=== PATIENT | male | born 1945 | race Caucasian/White ===

== ENCOUNTER 2021-09-15 17:20 | Inpatient (IN) | payer OTHER ==
--- OUTSIDE RECORDS SUMMARY | 2021-09-15 17:22 | XMS REPORT | Continuity of Care Document ---
:1945 Author Organization [facility] t Address [address] [place] [address] Care Team Providers Name Role Phone Tiffany Harrington Cardiology Attending Clinician Unavailable Lew Adkins Admitting Clinician Unavailable Payers Payer Name Policy Type Policy Number Effective Date Expiration Date S ource Problems This patient has no known problems. Allergies, Adverse Reactions, Alerts Allergy Allergy Status Severity Reaction(s) Onset Inactive Treating Comm ents Source Name Type Date Date Clinician No Known DA Active U [facility] Allergie 09-17 [facility] 00:00: [address] Medications This patient has no known medications. Procedures This patient has no known procedures. Encounters Start End Encounter Admission Attending Care Care Encounter Source Date/Time Date/Time Type Type Clinicians Facility Department ID 2021-10-17 2021-10-17 Outpatient TOM Harrington SURG [id number] [facility] 04:30:00 04:30:00 [facility] 16 [facility] 2021-09-12 2021-09-12 Outpatient TOM Harrington SURG [id number] [facility] 08:30:00 08:30:00 [facility] 43 [facility] Results This patient has no known results.
--- NOTE | 2021-09-15 19:27 | ER ---
Nurse's Notes [facility] Name: Geraldo El Age: 76 yrs Sex: Male : 1945 Arrival Date: 09/15/2021 Time: 17:22 Bed 7 Private MD: Diagnosis: Cellulitis of other parts of limb;Personal history of diabetic foot ulcer-infected, faile out pt treatment Presentation: 09/15 17:29 Chief complaint: Chief complaint: Sent by Dr. Rosa for chronic left foot wound. hb 17:37 Coronavirus screen: At this time, the client does not indicate any symptoms associated hb with coronavirus-19. Ebola Screen: No symptoms or risks identified at this time. Risk Assessment: Do you want to hurt yourself or someone else? Patient reports no desire to harm self or others. Onset of symptoms was September 15, 2021. 17:37 Method Of Arrival: Wheelchair hb 17:37 Acuity: EDMAR 3 hb 21:15 Initial Sepsis Screen: Does the patient meet any 2 criteria? Does the patient have a aa9 suspected source of infection?. Triage Assessment: 17:30 General: Appears in no apparent distress. Behavior is calm, cooperative. Pain: Pain hb currently is 5 out of 10 on a pain scale. Neuro: Level of Consciousness is awake, alert, obeys commands, Oriented to person, place, time, situation. Cardiovascular: Patient's skin is warm and dry. Respiratory: Respiratory effort is even, unlabored, Respiratory pattern is regular, symmetrical. Historical: - Allergies: 18:25 No Known Allergies; hb - PMHx: 18:25 hypertension; Diabetes mellitus; hb - PSHx: 18:25 Double Bypass; Artery - Left Leg; Tonsillectomy; Hemorrhoidectomy; Amputation - Left hb toes (all); - Immunization history:: Client reports receiving the 2nd dose of the Covid vaccine, Flu vaccine is not up to date. - Social history:: Smoking status: Patient denies any tobacco usage or history of. - Family history:: not pertinent. Screenin:14 Abuse screen: Denies threats or abuse. Denies injuries from another. Nutritional aa9 screening: No deficits noted. Tuberculosis screening: No symptoms or risk factors identified. Fall Risk None identified. Vital Signs: 17:37 BP 168 / 78; Pulse 66; Resp 16; Temp 97.5; Pulse Ox 100% on R/A; Pain 5/10; hb 21:24 Weight 117.93 kg (R); Height 6 ft. 5 in. (195.58 cm) (R); aa9 21:24 Body Mass Index 30.83 (117.93 kg, 195.58 cm) aa9 Basom Coma Score: 19:12 Eye Response: spontaneous(4). Verbal Response: oriented(5). Motor Response: obeys ernie commands(6). Total: 15. ED Course: 17:22 Patient arrived in ED. as 17:30 Pete Ruth MD is Attending Physician. ernie 17:38 Triage completed. hb 18:25 Arm band placed on. hb 19:13 Danielito Ambrose, KATIE is Primary Nurse. as6 19:22 Ariel Ernandez MD is Hospitalizing Provider. ernie 19:34 XRAY Chest (1 view) In Process Unspecified. EDMS 19:34 Foot Left 3 View XRAY In Process Unspecified. EDMS 19:39 Inserted saline lock: 20 gauge in right wrist, using aseptic technique. Blood collected.zm 19:39 Lactate Sent. zm 19:39 SARS RAPID Sent. zm 19:39 CRP Sent. zm 19:39 Sed Rate Sent. zm 19:39 Basic Metabolic Panel Sent. zm 19:39 LFT's Sent. zm 19:39 CBC with Diff Sent. zm 19:39 Magnesium Sent. zm 19:39 NT PRO-BNP Sent. zm 19:39 PT-INR Sent. zm 19:39 Troponin HS Sent. zm 21:15 Patient has correct armband on for positive identification. aa9 09/16 08:39 No provider procedures requiring assistance completed. Patient admitted, IV remains in vg1 place. Administered Medications: 09/15 20:00 Drug: Pepcid (famotidine) 20 mg Route: IVP; Site: right wrist; aa9 20:20 Follow up: Response: No adverse reaction aa9 20:01 Drug: Meropenem 1 grams Route: IV; Rate: per protocol; Site: right wrist; aa9 20:19 Follow up: Response: No adverse reaction; IV Status: Completed infusion; IV Intake: aa9 100ml 20:10 Drug: vancoMYCIN 1 grams Route: IVPB; Infused Over: 2 hrs; Site: right wrist; aa9 21:44 Not Given (Other Intervention Used): NS 0.9% 1000 ml IV at 125 ml/hr continuous as6 22:00 Drug: NS 0.9% 500 ml Route: IV; Rate: bolus; Site: right forearm; aa9 Medication: 09/16 08:39 VIS not applicable for this client. vg1 Intake: 09/15 20:19 IV: 100ml; Total: 100ml. aa9 Outcome: 19:25 Decision to Hospitalize by Provider. erine 09/16 08:38 Admitted to Tele accompanied by tech, via stretcher, room 220, with chart, Report vg1 called to Emily WILSON Condition: good Instructed on the need for admit. 09:29 Patient left the ED. iw Signatures: Dispatcher [employer] EDPete Hunter MD MD cha Martinez, Amelia as Williams, Irene, RN KATIE iw Aria Constantino RN RN hb Garcia, Victoria, RN RN vg1 Danielito Ambrose RN RN as6 Elizabeth Rosa Aylin, RN RN aa9 Corrections: (The following items were deleted from the chart) 09/15 17:38 17:29 Chief complaint: hb hb
--- NOTE | 2021-09-15 19:27 | EDPHYS ---
Physician Documentation [facility] Name: Geraldo El Age: 76 yrs Sex: Male : 1945 Arrival Date: 09/15/2021 Time: 17:22 Bed 7 Private MD: EVELIN Physician Pete Ruth HPI: 09/15 19:12 This 76 yrs old Male presents to ER via Wheelchair with complaints of Sent by ernie Rosa. 19:12 The patient presents with decreased range of motion, pain, swelling, tenderness. The ernie complaints affect the left lateral ankle, lateral aspect of left foot, left heel, left medial ankle and medial aspect of left foot. Context: The problem was sustained at an unknown site. Onset: The symptoms/episode began/occurred 14 day(s) ago. Modifying factors: The symptoms are alleviated by elevating leg, the symptoms are aggravated by movement, weight bearing. Associated signs and symptoms: Pertinent positives: fever, weakness. The patient presents with decreased range of motion, pain, swelling, tenderness. The complaints affect the left foot. Context: The problem was sustained at an unknown location. Modifying factors: The symptoms are alleviated by nothing, the symptoms are aggravated by nothing. Historical: - Allergies: 18:25 No Known Allergies; hb - PMHx: 18:25 hypertension; Diabetes mellitus; hb - PSHx: 18:25 Double Bypass; Artery - Left Leg; Tonsillectomy; Hemorrhoidectomy; Amputation - Left hb toes (all); - Immunization history:: Client reports receiving the 2nd dose of the Covid vaccine, Flu vaccine is not up to date. - Social history:: Smoking status: Patient denies any tobacco usage or history of. - Family history:: not pertinent. ROS: 19:12 Constitutional: Negative for fever, chills, and weight loss, Eyes: Negative for injury, ernie pain, redness, and discharge, ENT: Negative for injury, pain, and discharge, Neck: Negative for injury, pain, and swelling, Cardiovascular: Negative for chest pain, palpitations, and edema, Respiratory: Negative for shortness of breath, cough, wheezing, and pleuritic chest pain, Abdomen/GI: Negative for abdominal pain, nausea, vomiting, diarrhea, and constipation, Back: Negative for injury and pain, : Negative for injury, bleeding, discharge, and swelling, Neuro: Negative for headache, weakness, numbness, tingling, and seizure, Psych: Negative for depression, anxiety, suicide ideation, homicidal ideation, and hallucinations, Allergy/Immunology: Negative for hives, rash, and allergies, Endocrine: Negative for neck swelling, polydipsia, polyuria, polyphagia, and marked weight changes, Hematologic/Lymphatic: Negative for swollen nodes, abnormal bleeding, and unusual bruising. 19:12 MS/extremity: Positive for decreased range of motion, erythema, pain, paresthesias, swelling, tenderness, of the lateral side of left heel, left Achilles, left lateral malleolus, medial aspect of left heel and heel of left foot. Exam: 19:12 Constitutional: This is a well developed, well nourished patient who is awake, alert, ernie and in no acute distress. Head/Face: Normocephalic, atraumatic. Eyes: Pupils equal round and reactive to light, extra-ocular motions intact. Lids and lashes normal. Conjunctiva and sclera are non-icteric and not injected. Cornea within normal limits. Periorbital areas with no swelling, redness, or edema. ENT: Nares patent. No nasal discharge, no septal abnormalities noted. Tympanic membranes are normal and external auditory canals are clear. Oropharynx with no redness, swelling, or masses, exudates, or evidence of obstruction, uvula midline. Mucous membranes moist. Neck: Trachea midline, no thyromegaly or masses palpated, and no cervical lymphadenopathy. Supple, full range of motion without nuchal rigidity, or vertebral point tenderness. No Meningismus. Chest/axilla: Normal chest wall appearance and motion. Nontender with no deformity. No lesions are appreciated. Cardiovascular: Regular rate and rhythm with a normal S1 and S2. No gallops, murmurs, or rubs. Normal PMI, no JVD. No pulse deficits. Respiratory: Lungs have equal breath sounds bilaterally, clear to auscultation and percussion. No rales, rhonchi or wheezes noted. No increased work of breathing, no retractions or nasal flaring. Abdomen/GI: Soft, non-tender, with normal bowel sounds. No distension or tympany. No guarding or rebound. No evidence of tenderness throughout. Back: No spinal tenderness. No costovertebral tenderness. Full range of motion. Male : Normal genitalia with no discharge or lesions. Neuro: Awake and alert, GCS 15, oriented to person, place, time, and situation. Cranial nerves II-XII grossly intact. Motor strength 5/5 in all extremities. Sensory grossly intact. Cerebellar exam normal. Normal gait. Psych: Awake, alert, with orientation to person, place and time. Behavior, mood, and affect are within normal limits. 19:12 Musculoskeletal/extremity: ROM: intact in all extremities, full active range of motion, full passive range of motion, Circulation is intact in all extremities. numbness, DVT Exam: negative Homans' sign noted on exam, no appreciated bluish discoloration, pain, swelling, tenderness, erythema, increased warmth. 19:12 Skin: cellulitis, that is mild, that is moderate, induration, that is mild is noted. Vital Signs: 17:37 BP 168 / 78; Pulse 66; Resp 16; Temp 97.5; Pulse Ox 100% on R/A; Pain 5/10; hb 21:24 Weight 117.93 kg (R); Height 6 ft. 5 in. (195.58 cm) (R); aa9 21:24 Body Mass Index 30.83 (117.93 kg, 195.58 cm) aa9 Cassandra Coma Score: 19:12 Eye Response: spontaneous(4). Verbal Response: oriented(5). Motor Response: obeys [facility] commands(6). Total: 15. MDM: 18:22 Patient medically screened. [facility] 19:18 Differential diagnosis: contusion, tendonitis, sprain, cellulitis. Data reviewed: vital ernie signs, nurses notes, lab test result(s), EKG, radiologic studies, plain films. Data interpreted: polisher hand: rate is 66 beats/min, rhythm is regular, Pulse oximetry: on room air is 100 %. Test interpretation: by ED physician or midlevel provider: ECG, plain radiologic studies. Counseling: I had a detailed discussion with the patient and/or guardian regarding: the historical points, exam findings, and any diagnostic results supporting the discharge/admit diagnosis, lab results, radiology results, the need for further work-up and treatment in the hospital. 09/15 19:10 Order name: Basic Metabolic Panel; Complete Time: 20:31 [facility] 09/15 19:10 Order name: CBC with Diff; Complete Time: 20:31 [facility] 09/15 19:10 Order name: LFT's; Complete Time: 20:31 [facility] 09/15 19:10 Order name: Magnesium; Complete Time: 20:31 [facility] 09/15 19:10 Order name: NT PRO-BNP; Complete Time: 20:31 [facility] 09/15 19:10 Order name: PT-INR; Complete Time: 19:58 [facility] 09/15 19:10 Order name: Troponin HS; Complete Time: 20:31 [facility] 09/15 19:10 Order name: Sed Rate; Complete Time: 20:31 [facility] 09/15 19:10 Order name: CRP; Complete Time: 20:31 [facility] 09/15 19:10 Order name: SARS RAPID; Complete Time: 20: [facility] 09/15 19:10 Order name: Lactate; Complete Time: 20:31 [facility] 09/15 22:58 Order name: Glucose, Ancillary Testing; Complete Time: 04:57 EDNJ 09/15 23:13 Order name: Lactate Sepsis 2 HR Follow-up; Complete Time: 04:57 [facility] 09/16 05:57 Order name: CBC with Automated Diff [place] 09/15 19:10 Order name: XRAY Chest (1 view); Complete Time: 19:58 [facility] 09/15 19:10 Order name: EKG; Complete Time: 19:11 [facility] 09/15 19:10 Order name: Cardiac monitoring; Complete Time: 20:20 [facility] 09/15 19:10 Order name: EKG - Nurse/Tech; Complete Time: 20:20 [facility] 09/15 19:10 Order name: IV Saline Lock; Complete Time: 19:40 [facility] 09/15 19:10 Order name: Labs collected and sent; Complete Time: 19:40 [facility] 09/15 19:10 Order name: Foot Left 3 View XRAY; Complete Time: 19:58 [facility] 09/16 05:57 Order name: Basic Metabolic Panel EDNJ 09/16 05:57 Order name: Phosphorus EDNJ 09/16 05:57 Order name: Magnesium [facility] 09/16 05:57 Order name: Hemoglobin A1c [facility] 09/15 19:10 Order name: O2 Per Protocol; Complete Time: 20:20 [facility] 09/15 19:10 Order name: O2 Sat Monitoring; Complete Time: 20:20 [facility] Administered Medications: 20:00 Drug: Pepcid (famotidine) 20 mg Route: IVP; Site: right wrist; aa9 20:20 Follow up: Response: No adverse reaction aa9 20:01 Drug: Meropenem 1 grams Route: IV; Rate: per protocol; Site: right wrist; aa9 20:19 Follow up: Response: No adverse reaction; IV Status: Completed infusion; IV Intake: aa9 100ml 20:10 Drug: vancoMYCIN 1 grams Route: IVPB; Infused Over: 2 hrs; Site: right wrist; aa9 21:44 Not Given (Other Intervention Used): NS 0.9% 1000 ml IV at 125 ml/hr continuous as6 22:00 Drug: NS 0.9% 500 ml Route: IV; Rate: bolus; Site: right forearm; aa9 Disposition Summary: 09/15/21 19:25 Hospitalization Ordered Hospitalization Status: Inpatient Admission ernie Provider: Ariel Ernandez cha Condition: Fair ernie Problem: new ernie Symptoms: have improved ernie Bed/Room Type: Standard ernie Location: Telemetry/MedSurg (Inpatient)(09/16/21 07:32) bd Room Assignment: 220(09/16/21 07:32) bd Diagnosis - Cellulitis of other parts of limb ernie - Personal history of diabetic foot ulcer - infected, faile out pt treatment ernie Forms: - Medication Reconciliation Form ernie - SBAR form ernie Signatures: Dispatcher [employer] EDAnali Lucero Corey, MD MD cha Garcia, Cindy, RN RN Aria Chávez RN RN hb Brown, Sophia, PA PA sb3 Anahy Fregoso RN RN aa9 Danielito Ambrose RN as6 Corrections: (The following items were deleted from the chart) 20:55 19:25 Telemetry/MedSurg (Inpatient) [facility] cg 20:55 19:25 [facility] cg 09/16 07:09/15 20:55 [facility] ER HOLD cg bd 09/16 07:09/15 20:55 ERHOLD- cg bd
[2021-09-15] MEDS ORDERED: VANCOMYCIN 1 GM/VIAL ONE (19:44)
[2021-09-15] MEDS ORDERED: Meropenem 1000 MG/VIAL IV ONE (19:44)
[2021-09-15] MEDS ORDERED: FAMOTIDINE 20 MG/2 ML VIAL IV ONE (19:45)
[2021-09-15] MEDS ORDERED: NA CHLORIDE 0.9% 100 ML ONE (19:45)
[2021-09-15] MEDS ORDERED: NA CHLORIDE 0.9% 250 ML ONE (19:45)
[2021-09-15] MEDS ORDERED: NA CHLORIDE 0.9% 500 ML ONE (19:45)
[2021-09-15] MEDS ORDERED: NA CHLORIDE 0.9% 0 ML ONE (19:45)
--- NOTE | 2021-09-15 19:50 | RAD REPORT ---
EXAM DESCRIPTION: RAD - Chest Single View - 09/15/2021 7:32 pm CLINICAL HISTORY: COUGH COMPARISON: None TECHNIQUE: AP portable chest image was obtained 09/15/2021 7:32 pm . FINDINGS: No focal mass or consolidation. Interstitial markings are prominent accentuated in part du e to portable technique and body habitus affects. No significant failure or volume overload. Pericard ial fat noted on the left. Heart and vasculature are normal. No measurable pleural effusion and no pn eumothorax. No acute bony abnormality seen. No acute aortic findings suspected. IMPRESSION: No acute cardiopulmonary process.
[2021-09-15 19:51] LABS: Protime INR 1.57
--- NOTE | 2021-09-15 19:54 | RAD REPORT ---
EXAM DESCRIPTION: RAD - Foot Left 3 View - 09/15/2021 7:32 pm CLINICAL HISTORY: PAIN, wound COMPARISON: None FINDINGS: Patient is status post amputation mid metatarsal level. At the metatarsal osteotomy sites no erosive or destructive bone changes identifiable. No tarsal bone acute finding seen. There are deg enerative changes present. Site of wound is not specified that appears to be the plantar soft tissues near the calcaneus. There are erosive changes in the calcaneus at the expected site of the plantar t endon attachment. Achilles spur is present. Air densities are seen in the mid plantar soft tissues. N o foreign body seen. IMPRESSION: Bone erosive changes are seen in the calcaneus near the plantar tendon attachment site. This is in proximity to the wound and osteomyelitis is suspected. Mid metatarsal shaft osteotomy sites show no erosive or destructive change.
[2021-09-15 19:55] LABS: Absolute Lymphocytes (CBC) 1.3 K/uL (0.7-4.9); Hematocrit 32.4 % (39.6-49.0); Lymphocytes % 7.1 % (15.3-44.8); MCV 82.5 fL (80-100); MPV 8.5 fL (7.6-11.3); RBC Red Blood Cell Count 3.93 M/uL (4.33-5.43)
--- NOTE | 2021-09-15 20:07 | P.HP ---
Certification for Inpatient Patient admitted to: Inpatient With expected LOS: <2 Midnights Patient will require the following post-hospital care: None Practitioner: I am a practitioner with admitting privileges, knowledge of patient current condition, hospital course, and medical plan of care. Services: Services provided to patient in accordance with Admission requirements found in Title 42 Section 412.3 of the Code of Federal Regulations Patient History Date of Service: 09/15/21 Primary Care Provider: Jen Reason for admission: Cellulitus/Osteomyelitis L Foot History of Present Illness: Patient is a 76-year-old male with hypertension, CAD, and NIDDM who presented to the ED with complaints of cellutis L heel/diabetic foot ulcer. Patient reports that he was admitted to [facility] about 1 week ago and treated for 2 days with IV antibiotics. He was discharged with oral doxycycline. He followed up today with Dr. Rosa who saw his foot and immediately sent him to the ED. Labs significant for WBC 18.9, ESR 80, BUN 32, creatinine 1.58, glucose 155, lactic acid 2.1, magnesium 2.5, CRP 167, BNP 4000. Vital signs stable. Chest x-ray negative. L foot xray showed "Bone erosive changes are seen in the calcaneus near the plantar tendon attachment site. This is in proximity to the wound and osteomyelitis is suspected. Mid metatarsal shaft osteotomy sites show no erosive or destructive change" Started on vanc and meropenem in ED. Dr. Rosa wishes to operate in the morning. Patient is admitted to hospitalist service. 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 - Social History Smoking Status: Former smoker Alcohol use: No CD- Drugs: No Caffeine use: Yes Place of Residence: Home Review of Systems 10-point ROS is otherwise unremarkable Physical Examination - Physical Exam General: Alert, In no apparent distress, Obese HEENT: Atraumatic, PERRLA, EOMI, Sclerae nonicteric Neck: Supple, 2+ carotid pulse no bruit, No LAD, Without JVD or thyroid abnormality Respiratory: Clear to auscultation bilaterally, Normal air movement Cardiovascular: Regular rate/rhythm, Normal S1 S2 Gastrointestinal: Normal bowel sounds, No tenderness Musculoskeletal: No contractures Integumentary: Skin breakdown, Erythema, Warmth, Diabetic ulcer, Other (dressing in place) Neurological: Normal speech, Normal strength at 5/5 x4 extr, Normal tone, Sensation intact Lymphatics: No axilla or inguinal lymphadenopathy - Studies Laboratory Data (last 24 hrs) 09/15/21 19:30: PT 17.4 H, INR 1.57 09/15/21 19:30: WBC 18.9 H, Hgb 10.5 L, Hct 32.4 L, Plt Count 388 Assessment and Plan - Problems (Diagnosis) (1) Cellulitis of left foot Current Visit: Yes Status: Acute (2) Acute osteomyelitis of left calcaneus Current Visit: Yes Status: Acute (3) Type 2 diabetes mellitus Current Visit: Yes Status: Chronic Qualifiers: Diabetes mellitus termite renewal inspector insulin use: without shelter use Diabetes mellitus complication status: with skin complications Diabetes mellitus complication detail: with foot ulcer Qualified Code(s): E11.621 - Type 2 diabetes mellitus with foot ulcer; L97.509 - Non-pressure chronic ulcer of other part of unspecified foot with unspecified severity (4) Hypertension Current Visit: Yes Status: Chronic Qualifiers: Hypertension type: primary hypertension Qualified Code(s): I10 - Essential (primary) hypertension (5) CAD (coronary artery disease) Current Visit: Yes Status: Chronic Qualifiers: Coronary Disease-Associated Artery/Lesion type: bypass graft [place] vs. transplanted heart: [place] heart Associated angina: without angina Qualified Code(s): I25.810 - Atherosclerosis of coronary artery bypass graft(s) without angina pectoris (6) BARBARA (acute kidney injury) Current Visit: Yes Status: Acute - Plan -Patient is admitted to medical floor -NPO at midnight. Dr. Rosa to operate tomorrow -Monitor on telemetry -Q6H accu checks with mild sliding scale insulin. A1c in morning -Continue vancomycin and meropenem -Wound cultures obtained -Continue IV fluids for BARBARA -Repeat labs in AM -Monitor and replete electrolytes per protocol -Reconcile and continue home medications -SCDs for VTE ppx -Full code Discharge Plan: Home Plan to discharge in: 48 Hours - Advance Directives Does patient have a Living Will: No Does patient have a Durable POA for Healthcare: No - Code Status/Comfort Care Code Status Assessed: Yes (Full) Critical Care: No Time Spent Managing Pts Care (In Minutes): 50
[2021-09-15 20:08] LABS: Albumin 2.6 g/dL (3.4-5.0); Bilirubin Direct 0.2 mg/dL (0-0.2); Bilirubin Total 0.5 mg/dL (0.2-1.0); Magnesium 2.5 mg/dL (1.8-2.4); Potassium 4.3 mmol/L (3.5-5.1); Protein, Total 7.5 g/dL (6.4-8.2); Troponin High Sensitivity 23.6 pg/mL (<58.9)
[2021-09-15 20:16] LABS: SARS-CoV-2 Antigen Rapid Res Negative (Negative)
[2021-09-15] MEDS ORDERED: ACETAMINOPHEN 500 MG TAB PO PRN (21:29)
[2021-09-15] MEDS ORDERED: VANCOMYCIN 1 GM in NA CHLORIDE 0.9% 250 ML IVPB SCH (21:29)
[2021-09-15] MEDS ORDERED: ONDANSETRON 4 MG/2 ML VIAL IV PRN (21:29)
[2021-09-15] MEDS: Ringers Lactate 1,000 ML IV SCH (21:29)
[2021-09-15 21:51] VITALS: BMI 30.8
[2021-09-15] MEDS ORDERED: Ringers Lactate 1,000 ML IV ONE (22:30)
[2021-09-15] MEDS ORDERED: VANCOMYCIN 1 GM in NA CHLORIDE 0.9% 250 ML IVPB ONE (23:00)
[2021-09-16 02:52] LABS: Absolute Lymphocytes (CBC) 1.5 K/uL (0.7-4.9); Hematocrit 29.2 % (39.6-49.0); MCV 83.9 fL (80-100); MPV 8.4 fL (7.6-11.3); RBC Red Blood Cell Count 3.48 M/uL (4.33-5.43)
[2021-09-16] MEDS: Meropenem 500 MG in NA CHLORIDE 0.9% 100 ML IV SCH ×3 (04:00→20:34)
[2021-09-16] MEDS ORDERED: Meropenem 500 MG VIAL IV ONE ×2 (04:30→11:44)
[2021-09-16] MEDS ORDERED: NA CHLORIDE 0.9% 100 ML ONE ×2 (04:31→11:43)
[2021-09-16 04:45] LABS: Magnesium 2.2 mg/dL (1.8-2.4); Phosphorus 2.7 mg/dL (2.5-4.9); Potassium 4.1 mmol/L (3.5-5.1)
[2021-09-16] MEDS: INSULIN -REGULAR HUMAN 50 UNIT/0.5 ML ML SQ SCH ×5 (06:00→20:23)
--- NOTE | 2021-09-16 06:39 | EKG ---
Test Date: 2021-09-15 Test Time: 20:01:52 Software Engineer Kernel: [email or web address] MEASUREMENT RESULTS: Intervals: Rate: 58 AR: QRSD: 146 QT: 484 QTc: 475 Ferney: P: AR: QRS: -9 T: 15 INTERPRETIVE STATEMENTS: Atrial fibrillation with slow ventricular response Right bundle branch block Inferior infarct, age undetermined Abnormal ECG No previous ECG available for comparison Electronically Signed On 09-16-21 06:38:34 CDT by Bob Hoover
[2021-09-16] MEDS: Ringers Lactate 1,000 ML IV SCH (07:29)
[2021-09-16] MEDS ORDERED: PNEUMOCOCCAL VACCINE 0.5 ML IMVAC ONE (08:00)
[2021-09-16] MEDS: VANCOMYCIN 1.5 GM in NA CHLORIDE 0.9% 500 ML IVPB SCH (11:43)
--- NOTE | 2021-09-16 12:30 | P.CNS ---
Date of Consult: 09/16/21 Primary Care Provider: Jen Chief Complaint: Cellulitus/Osteomyelitis L Foot History of Present Illness: The patient is a 76-year-old male with past medical history of diabetes, CAD, hypertension, and history of bilateral diabetic foot ulcers who presented to the emergency department secondary to cellulitis of left leg/left calcaneus diabetic foot ulcer. Patient states that he has had wounds to his bilateral lower extremities for the past 3 years and follows a wound care doctor in [facility] once a week. Patient states that he was having resolution of majority of his wounds, however approximately 1 week and ago noticed worsening of his left heel wound. X-ray taken on admission showed signs concerning for left calcaneus osteomyelitis. Patient was empirically placed on vancomycin and meropenem. Dr. Rosa on case, plans to take patient to the OR on Tuesday for amputation. Patient currently denies nausea/vomiting/diarrhea/shortness of breath/chest pain. Reports pain to left lower extremity, 1 without movement, for with movement. 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 - Social History Alcohol use: No CD- Drugs: No Caffeine use: Yes Place of Residence: Home Review of Systems 10-point ROS is otherwise unremarkable Physical Examination Temp Pulse Resp BP Pulse Ox 98.1 F 52 20 149/58 H 98 09/16/21 04:00 09/16/21 04:00 09/16/21 04:00 09/16/21 04:00 09/16/21 04:00 General: Alert, In no apparent distress, Obese HEENT: Atraumatic Neck: Supple Respiratory: Clear to auscultation bilaterally, Normal air movement Gastrointestinal: Normal bowel sounds, Soft and benign Musculoskeletal: Other (Left transmetatarsal amputation) Integumentary: Other (Right plantar diabetic foot callus, healing. Left calcaneus wound, wrapped with Kerlix. Left lower extremity cellulitis) Laboratory Data (last 24 hrs) 09/15/21 19:30: PT 17.4 H, INR 1.57 09/15/21 19:30: WBC 18.9 H, Hgb 10.5 L, Hct 32.4 L, Plt Count 388 09/15/21 19:30: Sodium 136, Potassium 4.3, BUN 32 H, Creatinine 1.58 H, Glucose 155 H, Magnesium 2.5 H, Total Bilirubin 0.5, AST 46 H, ALT 54, Alkaline Phosphatase 98 Conclusions/Impression: Antibiotics: Vancomycin: 09/15current Meropenem: 09/16current Assessment/plan Left heel diabetic ulcer with osteomyelitis X-ray showed signs concerning for left calcaneus osteomyelitis Dr. Rosa on case, please take patient to the OR on Tuesday for amputation Recommend continuing empiric IV vancomycin and meropenem at this time Recommend to keep leg elevated Diabetes Relatively controlled, hemoglobin A1c 7.0%. Educated patient importance of proper sugar control for infection control/wound healing Protein caloric malnutrition: Moderate Recommend supplemental Glucerna protein drinks. Adequate nutrition needed for proper wound healing Leukocytosis Related to left lower extremity cellulitis/left calcaneus osteomyelitis Continue current antibiotics Patient afebrile/hemodynamically stable Anemia Continue to monitor H&H Plan of care discussed with Dr. Dudley Thank you for consultation
[2021-09-16] MEDS ORDERED: VANCOMYCIN 2 GM in NA CHLORIDE 0.9% 500 ML IVPB SCH (16:00)
--- NOTE | 2021-09-16 17:45 | P.PN ---
Subjective Date of Service: 09/16/21 Primary Care Provider: Jen Chief Complaint: Cellulitus/Osteomyelitis L Foot Subjective: No new changes, Improving Physical Examination - Vital Signs Temperature: 97.8 F Blood Pressure: 171/68 Pulse: 51 Respirations: 18 Pulse Ox (%): 97 - Physical Exam General: Alert, Oriented x3 HEENT: Atraumatic, Normocephalic Neck: Supple Respiratory: Normal air movement Cardiovascular: Regular rate/rhythm, Normal S1 S2 Gastrointestinal: Soft and benign Musculoskeletal: Other (left foot hyperemia and dressing noted.) - Studies Laboratory Data (last 24 hrs) 09/15/21 19:30: PT 17.4 H, INR 1.57 09/15/21 19:30: WBC 18.9 H, Hgb 10.5 L, Hct 32.4 L, Plt Count 388 09/15/21 19:30: Sodium 136, Potassium 4.3, BUN 32 H, Creatinine 1.58 H, Glucose 155 H, Magnesium 2.5 H, Total Bilirubin 0.5, AST 46 H, ALT 54, Alkaline Phosphatase 98 Assessment And Plan - Plan Assessment and Plan - Problems (Diagnosis) (1) Cellulitis of left foot Current Visit: Yes Status: Acute (2) Acute osteomyelitis of left calcaneus Current Visit: Yes Status: Acute (3) Type 2 diabetes mellitus Current Visit: Yes Status: Chronic Qualifiers: Diabetes mellitus termite exterminator insulin use: without termite exterminator use Diabetes mellitus complication status: with skin complications Diabetes mellitus complication detail: with foot ulcer Qualified Code(s): E11.621 - Type 2 diabetes mellitus with foot ulcer; L97.509 - Non-pressure chronic ulcer of other part of unspecified foot with unspecified severity (4) Hypertension Current Visit: Yes Status: Chronic Qualifiers: Hypertension type: primary hypertension Qualified Code(s): I10 - Essential (primary) hypertension (5) CAD (coronary artery disease) Current Visit: Yes Status: Chronic Qualifiers: Coronary Disease-Associated Artery/Lesion type: bypass graft [place] vs. transplanted heart: [place] heart Associated angina: without angina Qualified Code(s): I25.810 - Atherosclerosis of coronary artery bypass graft(s) without angina pectoris (6) BARBARA (acute kidney injury) Current Visit: Yes Status: Acute - Plan he has had wound evaluated by ID and he also had surgical evaluation. Plans to have debridement as per surgeon recs. ID following for antibiotic recommendation in view of osteomyelitis episode. Will continue wound care recommendation. Will continue to monitor blood sugar before meals and at bedtime and continue insulin therapy for management of diabetes. Will continue care of comorbid conditions. Discharge Plan: Home. Plan to discharge in: once plan of care is finalized.
[2021-09-16] MEDS: AMIODARONE HCL 200 MG TAB PO SCH (20:38)
[2021-09-16] MEDS: carvediloL 25 MG TAB PO SCH (20:38)
[2021-09-16] MEDS: lisinopriL 20 MG TAB PO SCH (20:38)
[2021-09-16] MEDS: ASPIRIN EC 81 MG TAB PO SCH (20:38)
[2021-09-16] MEDS: ATORVASTATIN 80 MG TAB PO SCH (20:38)
[2021-09-16] MEDS: RIVAROXABAN 15 MG TABLET PO SCH (20:39)
[2021-09-17] MEDS: Meropenem 500 MG in NA CHLORIDE 0.9% 100 ML IV SCH ×3 (05:16→21:10)
[2021-09-17] MEDS: INSULIN -REGULAR HUMAN 50 UNIT/0.5 ML ML SQ SCH ×4 (07:30→21:09)
[2021-09-17] MEDS: lisinopriL 20 MG TAB PO SCH ×2 (08:56→20:57)
[2021-09-17] MEDS: hydroCHLOROthiazide 12.5 MG CAP PO SCH (08:57)
[2021-09-17] MEDS: ALOGLIPTIN BENZOATE 12.5 MG TABLET PO SCH (08:59)
[2021-09-17] MEDS: carvediloL 25 MG TAB PO SCH ×2 (08:59→21:09)
[2021-09-17 09:31] LABS: Specific Gravity 1.015 (1.005-1.030); Urine Bilirubin Negative (Negative); Urine Blood Negative (Negative); Urine Clarity Clear (Clear); Urine Color Yellow (Yellow); Urine Glucose 2+ (Negative); Urine Protein Negative (Negative); Urine Urobilinogen 0.2 mg/dL (0.2-1.0); Urine pH 5.5 (5.0-7.0)
[2021-09-17 11:25] LABS: Urine Bacteria <20 /HPF (<20); Urine RBC <5 /HPF (None Seen)
[2021-09-17] MEDS: VANCOMYCIN 1.5 GM in NA CHLORIDE 0.9% 500 ML IVPB SCH (11:47)
--- NOTE | 2021-09-17 12:55 | P.PN ---
Subjective Date of Service: 09/17/21 Primary Care Provider: Jen Chief Complaint: Cellulitus/Osteomyelitis L Foot Patient seen and examined at bedside, doing well with no acute complaints. Review of Systems 10-point ROS is otherwise unremarkable Physical Examination - Vital Signs Temperature: 97.4 F Blood Pressure: 172/68 Pulse: 51 Respirations: 18 Pulse Ox (%): 97 - Studies Active Medications Acetaminophen (Acetaminophen 500 Mg Tab) 500 mg PO Q4HP PRN PRN Reason: Pain scale 2-4 (Mild) Meropenem 500 mg/ Sodium (Chloride) 100 mls @ 200 mls/hr IV Q8H [facility] Last Admin: 09/17/21 11:56 Dose: 100 mls Vancomycin HCl 1.5 gm/ Sodium (Chloride) 500 mls @ 333.333 mls/hr IVPB Q24H [facility] Last Admin: 09/17/21 11:47 Dose: 500 mls Insulin Human Regular (Insulin -Regular Human 50 Unit/0.5 Ml Ml) 0 unit SQ ACHS ARELY; Protocol Last Admin: 09/17/21 11:30 Dose: Not Given Ondansetron HCl (Ondansetron 4 Mg/2 Ml Vial) 4 mg IV Q6HP PRN PRN Reason: NAUSEA / VOMITING Sodium Chloride (Flush Normal Saline 10 Ml) 10 ml IV BID [facility] Last Admin: 09/17/21 09:05 Dose: 10 ml Assessment And Plan - Plan Physical Exam: General: Alert, In no apparent distress, Obese HEENT: Atraumatic Neck: Supple Respiratory: Clear to auscultation bilaterally, Normal air movement Gastrointestinal: Normal bowel sounds, Soft and benign Musculoskeletal: Other (Left transmetatarsal amputation) Integumentary: Other (Right plantar diabetic foot callus, healing. Left calcaneus wound, wrapped with Kerlix. Left lower extremity cellulitis) Conclusions/Impression: Antibiotics: Vancomycin: 09/15current Meropenem: 09/16current Assessment/plan Left heel diabetic ulcer with osteomyelitis X-ray showed signs concerning for left calcaneus osteomyelitis Dr. Rosa on case, please take patient to the OR on Tuesday for amputation Recommend continuing empiric IV vancomycin and meropenem at this time Recommend to keep leg elevated Diabetes Relatively controlled, hemoglobin A1c 7.0%. Educated patient importance of proper sugar control for infection control/wound healing Protein caloric malnutrition: Moderate Recommend supplemental Glucerna protein drinks. Adequate nutrition needed for proper wound healing Leukocytosis Related to left lower extremity cellulitis/left calcaneus osteomyelitis Continue current antibiotics Patient afebrile/hemodynamically stable Anemia Continue to monitor H&H Plan of care discussed with Dr. Dudley Thank you for consultation
--- NOTE | 2021-09-17 13:28 | P.PN ---
Subjective Date of Service: 09/17/21 Primary Care Provider: Jen Chief Complaint: Cellulitus/Osteomyelitis L Foot No new change s/p debridement awaiting surgery tomorrow Review of Systems Unremarkable Physical Examination - Vital Signs Temperature: 97.4 F Blood Pressure: 172/68 Pulse: 51 Respirations: 18 Pulse Ox (%): 97 - Physical Exam General: Alert, In no apparent distress, Oriented x3 Respiratory: Clear to auscultation bilaterally Cardiovascular: No edema Assessment And Plan - Current Problems (Diagnosis) (1) Acute osteomyelitis of left calcaneus Current Visit: Yes Status: Acute Plan: Patient admitted with acute osteomyelitis of the left foot s/p debridement of n ecrotic tissue possible amputation tomorrow continue with meropenem and vancomycin and needs a PICC line White count is still mildly elevated no cultures blood pressure is mildly elevated
[2021-09-17] MEDS: AMLODIPINE 5 MG TAB PO SCH (17:30)
--- NOTE | 2021-09-17 17:39 | CON ---
Date of Consultation: 09/17/2021 Reason For Consultation: Preop assessment for foot surgery for infected diabetic foot ulcer. History Of Present Illness: This is a 76-year-old male with history of coronary artery disease, hist ory of peripheral vascular disease. He is status post 2-vessel bypass many years back and also had a bypass in the left lower extremity, known to have diabetes, hypertension, dyslipidemia, who presente d to the emergency room with infected diabetic foot ulcer and is on antibiotics and planning for a po ssible debridement versus amputation tomorrow. The patient denies having any active chest pain. He sees Dr. Harrington in [place] and his last stress test was more than a year ago. The patient does not do much activities due to feet problem, so exercise capacity cannot be evaluated. Past Medical History: As outlined above. Medications: Refer to reconciliation sheet for detailed list. Allergies: NO KNOWN DRUG ALLERGIES. Family History: No premature coronary artery disease or cancer. Social History: Does not smoke or drink. Does not use drugs. Review of Systems: All systems reviewed and they were negative except for what mentioned in the HPI. Physical Examination: Vital Signs: Reviewed. Head and Neck: Pupils are equal, reactive to light. Intact eye movements. No JVD. No cervical lym phadenopathy. Neck is supple. Thyroid is not enlarged. Lungs: Clear to auscultation bilaterally. No rhonchi, wheezing, or crackles. No accessory muscle u se. Heart: Regular rate and rhythm. No extra sounds. Abdomen: Soft, nontender. Bowel sounds positive. No organomegaly. No masses or hernia. No rigidi ty or rebound. Extremities: No edema, clubbing, or cyanosis. Intact pulses. Skin: No rash. Neurologic: Alert, awake, oriented x3. No acute focal deficits appreciated. Lymph Nodes: No cervical or axillary lymphadenopathy. Investigations: Troponin was negative when he came in. His creatinine is 1.44 with a white blood ce ll count of 16.4, hemoglobin 9.5. Assessment And Recommendations: 1.Cardiac preop risk assessment. This patient has coronary artery disease, peripheral vascular dise ase, diabetic hypertension. I am not able to evaluate his exercise tolerance for exercise capacity a s he does not do much activities due to his feet's status. It is planned to go under general anesthe sergio and recommend a Lexiscan nuclear stress test and an echocardiogram to be done early in the edita g prior to the surgery to better understand his cardiac risk for general anesthesia. 2.Hypertension. Blood pressure is uncontrolled. Please resume his home medications. His systolic blood pressure is close to 200. I will discuss further with primary care physician. 3.Coronary artery disease. There is no chest pain. Troponin is negative. However, unable to evalu ate his exercise capacity and plan for stress test as outlined above. SR/MODL Voice ID: [id number] Report ID: [id number]
[2021-09-17] MEDS ORDERED: NA CHLORIDE 0.9% 100 ML ONE (20:46)
[2021-09-17] MEDS: ASPIRIN EC 81 MG TAB PO SCH (20:57)
[2021-09-17] MEDS: AMIODARONE HCL 200 MG TAB PO SCH (20:57)
[2021-09-17] MEDS: ATORVASTATIN 80 MG TAB PO SCH (21:00)
[2021-09-18] MEDS: Meropenem 500 MG in NA CHLORIDE 0.9% 100 ML IV SCH ×3 (05:04→20:08)
[2021-09-18] MEDS: INSULIN -REGULAR HUMAN 50 UNIT/0.5 ML ML SQ SCH ×4 (07:30→20:09)
[2021-09-18] MEDS ORDERED: REGADENOSON 0.4 MG/5 ML SYR IV ONE (08:35)
[2021-09-18] MEDS: AMLODIPINE 5 MG TAB PO SCH (09:00)
[2021-09-18] MEDS: lisinopriL 20 MG TAB PO SCH ×2 (09:00→20:09)
[2021-09-18] MEDS: hydroCHLOROthiazide 12.5 MG CAP PO SCH (09:00)
[2021-09-18] MEDS: carvediloL 25 MG TAB PO SCH ×2 (09:00→20:08)
[2021-09-18] MEDS: ALOGLIPTIN BENZOATE 12.5 MG TABLET PO SCH (09:00)
--- NOTE | 2021-09-18 09:58 | P.PN ---
Subjective Date of Service: 09/18/21 Primary Care Provider: Jen Chief Complaint: Cellulitus/Osteomyelitis L Foot Has been scheduled for another surgery needs cardiac clearance before that his blood pressure is elevated no new complaints Review of Systems Unremarkable Physical Examination - Vital Signs Temperature: 97.4 F Blood Pressure: 162/72 Pulse: 50 Respirations: 16 Pulse Ox (%): 96 - Physical Exam General: Alert, In no apparent distress, Oriented x3 Respiratory: Clear to auscultation bilaterally Assessment And Plan - Current Problems (Diagnosis) (1) Acute osteomyelitis of left calcaneus Current Visit: Yes Status: Acute Plan: Patient is doing better pain has improved awaiting cardiac clearance for surgery continue with antibiotic blood pressure elevated n.p.o. start on hydralazine IV as needed labs ordered
[2021-09-18] MEDS: HYDRALAZINE HCL 20 MG/ML VIAL IV PRN ×3 (10:12→17:27)
[2021-09-18] MEDS: VANCOMYCIN 1.5 GM in NA CHLORIDE 0.9% 500 ML IVPB SCH ×2 (11:20→12:26)
[2021-09-18 12:02] LABS: MCV 83.2 fL (80-100); MPV 8.5 fL (7.6-11.3); RBC Red Blood Cell Count 3.72 M/uL (4.33-5.43)
[2021-09-18 12:14] LABS: Potassium 4.2 mmol/L (3.5-5.1)
--- NOTE | 2021-09-18 12:30 | RAD REPORT ---
EXAM DESCRIPTION: NM - Rest Stress Cardiac Imaging - 09/18/2021 9:13 am CLINICAL HISTORY: pre-op eval Chest pain. COMPARISON: No comparisons TECHNIQUE: The patient was administered approximately 10mCi of Tc 99m Sestamibi prior to resting SPE CT imaging of the heart. The patient was then administered approximately 30 mCi of Tc 99m Sestamibi f ollowing exercise or pharmacologic stress. Multiplanar SPECT images were reviewed. FINDINGS: No stress induced ischemic defect is seen to suggest stress induced ischemia. Fixed defect along the left ventricular apex and anterior wall on both stress and rest probably related to previo us infarction with scar tissue. The end diastolic volume is 146 ml, the end systolic volume is 63 ml, and the ejection fraction is 57 %. IMPRESSION: No stress induced ischemia.
--- NOTE | 2021-09-18 13:31 | P.PN ---
Subjective Date of Service: 09/18/21 Primary Care Provider: Jen Chief Complaint: Cellulitus/Osteomyelitis L Foot Patient seen and examined at bedside, plan for OR today. Review of Systems 10-point ROS is otherwise unremarkable Physical Examination - Vital Signs Temperature: 97.9 F Blood Pressure: 179/63 Pulse: 53 Respirations: 18 Pulse Ox (%): 97 - Studies Laboratory Last Values WBC 18.9 K/uL (4.3-10.9) H 09/15/21 19:30 RBC 3.93 M/uL (4.33-5.43) L 09/15/21 19:30 Hgb 10.5 g/dL (13.6-17.9) L 09/15/21 19:30 Hct 32.4 % (39.6-49.0) L 09/15/21 19:30 MCV 82.5 fL (80-100) 09/15/21 19:30 MCH 26.6 pg (27.0-35.0) L 09/15/21 19:30 MCHC 32.3 g/dL (32.0-36.0) 09/15/21 19:30 RDW 15.8 % (12.1-15.2) H 09/15/21 19:30 Plt Count 388 K/uL (152-406) 09/15/21 19:30 MPV 8.5 fL (7.6-11.3) 09/15/21 19:30 Neutrophils % 80.0 % (41.7-73.7) H 09/15/21 19:30 Lymphocytes % 7.1 % (15.3-44.8) L 09/15/21 19:30 Monocytes % 10.4 % (3.3-12.3) 09/15/21 19:30 Eosinophils % 2.1 % (0-4.4) 09/15/21 19: Basophils % 0.4 % (0-1.3) 09/15/21 19:30 Absolute Neutrophils 15.1 K/uL (1.8-8.0) H 09/15/21 19:30 Absolute Lymphocytes 1.3 K/uL (0.7-4.9) 09/15/21 19:30 Absolute Monocytes 2.0 K/uL (0.1-1.3) H 09/15/21 19:30 Absolute Eosinophils 0.4 K/uL (0-0.5) 09/15/21 19:30 Absolute Basophils 0.1 K/uL (0-0.5) 09/15/21 19:30 ESR Westergren 80 mm/HR (0-20) H 09/15/21 19:30 PT 17.4 SECONDS (9.5-12.5) H 09/15/21 19:30 INR 1.57 09/15/21 19:30 Sodium 136 mmol/L (136-145) 09/15/21 19: Potassium 4.3 mmol/L (3.5-5.1) 09/15/21 19: Chloride 106 mmol/L (98-107) 09/15/21: Carbon Dioxide 23 mmol/L (21-32) 09/15/21: Anion Gap 11.3 mEq/L (5.0-15.0) 09/15/21 19: BUN 32 mg/dL (7-18) H 09/15/21 19: Creatinine 1.58 mg/dL (0.55-1.3) H 09/15/21 19:30 Est GFR (CKD-EPI) 45 ml/min (=/>90) L 09/15/21: Glucose 155 mg/dL (74-106) H 09/15/21 19: Lactic Acid 2.1 mmol/L (0.4-2.0) H 09/15/21 19: Calcium 8.7 mg/dL (8.5-10.1) 09/15/21: Magnesium 2.5 mg/dL (1.8-2.4) H 09/15/21 19:30 Total Bilirubin 0.5 mg/dL (0.2-1.0) 09/15/21 19: Direct Bilirubin 0.2 mg/dL (0-0.2) 09/15/21 19:30 AST 46 U/L (15-37) H 09/15/21 19:30 ALT 54 U/L (12-78) 09/15/21 19:30 Alkaline Phosphatase 98 U/L (45-117) 09/15/21 19: Troponin I High Sens 23.6 pg/mL (<58.9) 09/15/21 19:30 C-Reactive Protein 167.00 mg/L (<3.00) H 09/15/21 19:30 NT-Pro-B Natriuret Pep 4250 pg/mL (<450) H 09/15/21 19:30 Serum Total Protein 7.5 g/dL (6.4-8.2) 09/15/21 19:30 Albumin 2.6 g/dL (3.4-5.0) L 09/15/21 19:30 Globulin 4.9 g/dL (2.3-3.5) H 09/15/21 19:30 Albumin/Globulin Ratio 0.5 (1.1-1.8) L 09/15/21 19:30 SARS-CoV-2 Ag (Rapid) Negative (Negative) 09/15/21 19:30 Assessment And Plan - Plan Physical Exam: General: Alert, In no apparent distress, Obese HEENT: Atraumatic Neck: Supple Respiratory: Clear to auscultation bilaterally, Normal air movement Gastrointestinal: Normal bowel sounds, Soft and benign Musculoskeletal: Other (Left transmetatarsal amputation) Integumentary: Other (Right plantar diabetic foot callus, healing. Left calcaneus wound, wrapped with Kerlix. Left lower extremity cellulitis) Conclusions/Impression: Antibiotics: Vancomycin: 09/15current Meropenem: 09/16current Assessment/plan Left heel diabetic ulcer with osteomyelitis X-ray showed signs concerning for left calcaneus osteomyelitis Dr. Rosa on case, please take patient to the OR on Tuesday for amputation Recommend continuing empiric IV vancomycin and meropenem at this time Recommend to keep leg elevated Diabetes Relatively controlled, hemoglobin A1c 7.0%. Educated patient importance of proper sugar control for infection control/wound healing Protein caloric malnutrition: Moderate Recommend supplemental Glucerna protein drinks. Adequate nutrition needed for proper wound healing Leukocytosis Related to left lower extremity cellulitis/left calcaneus osteomyelitis Continue current antibiotics Patient afebrile/hemodynamically stable Anemia Continue to monitor H&H Plan of care discussed with Dr. Dudley Thank you for consultation
[2021-09-18] MEDS ORDERED: NA CHLORIDE 0.9% 1,000 ML ONE (13:51)
[2021-09-18] MEDS ORDERED: LIDOCAINE 2% MPF 5 ML VIAL ONE (14:29)
[2021-09-18] MEDS ORDERED: FENTANYL CITR 100 MCG/2 ML ONE (14:29)
[2021-09-18] MEDS ORDERED: propofoL 200 MG/20 ML VIAL IV ONE (14:29)
[2021-09-18] MEDS ORDERED: MIDAZOLAM HCL 2 MG/2 ML INJ ONE (14:35)
--- NOTE | 2021-09-18 15:17 | P.BOP ---
Preoperative diagnosis: L necrotic diabetic foor ulcer with cellulitis and abscess foot and leg Postoperative diagnosis: same Primary procedure: Excisional debridement down to fascia L necrotic diabetic foor ulcer 8x8cm Estimated blood loss: <10cc Specimen: culture Findings: see dicta Anesthesia: MAC Transferred to: Recovery Room Condition: Good
--- NOTE | 2021-09-18 16:25 | RAD REPORT ---
EXAM DESCRIPTION: RAD - Chest Single View - 09/18/2021 4:20 pm CLINICAL HISTORY: picc line placement COMPARISON: Chest Single View dated 09/15/2021 FINDINGS: Portable chest was obtained following placement of a right upper extremity PICC line. The catheter tip projects over the SVC.
--- NOTE | 2021-09-18 19:53 | PN ---
Date of Progress Note: 09/18/2021 Subjective: The patient was seen by bedside, doing well. Does not have any symptoms. No chest pain , shortness of breath, orthopnea, or cough. No nausea, vomiting, or diarrhea. All other systems rev iewed are negative. Objective: Vital Signs: Reviewed. Head and Neck: Pupils are equal and reactive to light. Intact eye movements. Neck: No JVD. No cervical lymphadenopathy. Neck is supple. Thyroid is not enlarged. Lungs: Clear to auscultation bilaterally. No rhonchi, wheezing, or crackles. No accessory muscle u se. Heart: Regular rate and rhythm. No extra sounds. Abdomen: Soft and nontender. Bowel sounds positive. No organomegaly. No masses or hernia. No rig idity or rebound. Extremities: No edema, clubbing, or cyanosis. Intact pulses. Skin: No rash. Neurologic: Alert, awake, and oriented x3. No acute focal deficits appreciated. Investigations: Creatinine is 1.23 and hemoglobin is 10.1. Nuclear stress test, no ischemia. Echo showed normal EF. Assessment And Recommendation: 1.Cardiac risk assessment preoperatively. The patient has multiple risk factor, however, stress kwasi t was negative and normal ejection fraction on echo to proceed with the surgical intervention. The p atient is at low cardiac risk. 2.Coronary artery disease, stable. No acute chest pain. Continue to monitor. 3.Diabetic foot ulcer with possible peripheral for vascular disease. Recommend to obtain vascular ultrasound of lower extremity if not already done. /DINOL Voice ID: [id number] Report ID: [id number]
[2021-09-18] MEDS: ATORVASTATIN 80 MG TAB PO SCH (20:08)
[2021-09-18] MEDS: ASPIRIN EC 81 MG TAB PO SCH (20:08)
[2021-09-18] MEDS: AMIODARONE HCL 200 MG TAB PO SCH (20:08)
[2021-09-18 23:14] VITALS: O2SAT 98
--- NOTE | 2021-09-19 02:57 | OP ---
Date of Procedure: 09/18/2021 Surgeon: Bhavik Rosa MD Preoperative Diagnoses: Cellulitis of the left lower leg and foot, also necrotic diabetic ulcer with cellulitis and abscess on the foot. Postoperative Diagnoses: Cellulitis of the left lower leg and foot, also necrotic diabetic ulcer wit h cellulitis and abscess on the foot. Procedure: Excision and debridement down to fascia of left necrotic diabetic foot ulcers about 8 x 8 cm. Estimated Blood Loss: Less than 10 cc. Specimen: Culture. Findings: The patient has multiple abscess involved the plantar surface, proximal and distal, also t racked into the medial ankle region. We have made several counter incisions to be able to remove the necrotic tissue present, trying to preserve some of the skin in that area. Complications: None. Indications: This is a case of a 76-year-old patient with severe cellulitis of the leg, foot requiri ng multiple admissions first at [facility], then here, multiple debridements needed to remove the necroti c tissue of the necrotic diabetic ulcer. Today, he was fully explained the need for debridement, wit h benefits, alternatives, risks include, but not limited to infection, bleeding, damage to adjacent s tructures, anesthesia complication, nonhealing wound, DC, and even . He also understands this m ay not relieve his symptoms. He might need more than one surgical intervention. He understood, sign ed a consent. He was also advised to go back to his vascular surgeon to re-evaluate the vascular pat ency of his graft that he has in the left leg. The patient this morning was evaluated by cardiologis t, who gave us clearance for surgery. Procedure In Detail: The patient was brought to the operating room, placed in supine position. Anes thesia was done without complication. A time-out was called. Left foot was prepped and draped in st erile fashion. We have an open wound over the dorsal aspect, but when we put this instrument through and the curette, we noticed that it tracked anterior, tracked posterior, and tracked also in the med ial ankle region. This has after been almost a week of antibiotics, still have purulent discharge. So, we made an incision on the mid foot and then opened even more incision in the plantar area and th is allowed us to get access to the entire foot area. There is obviously tendon or bone exposed appear the fat in that region has gone and is only tendons showing with muscle. The area was p rofusely irrigated. Then, after that, we used pulse lavage to further clean the area and do the debr idement. This was done under local anesthetic. The patient also has MAC anesthesia. The patient to lerated the procedure well. Hemostasis obtained and the area was packed with a wet-to-dry dressing. RASHID/RAFI Voice ID: [id number] Report ID: [id number]
[2021-09-19] MEDS: Meropenem 500 MG in NA CHLORIDE 0.9% 100 ML IV SCH ×3 (04:00→22:18)
[2021-09-19] MEDS: INSULIN -REGULAR HUMAN 50 UNIT/0.5 ML ML SQ SCH ×4 (07:30→22:20)
[2021-09-19] MEDS: hydroCHLOROthiazide 12.5 MG CAP PO SCH (08:32)
[2021-09-19] MEDS: lisinopriL 20 MG TAB PO SCH ×2 (08:33→22:19)
[2021-09-19] MEDS: ALOGLIPTIN BENZOATE 12.5 MG TABLET PO SCH (08:33)
[2021-09-19] MEDS: AMLODIPINE 5 MG TAB PO SCH (08:33)
[2021-09-19] MEDS: carvediloL 25 MG TAB PO SCH ×2 (08:33→22:20)
[2021-09-19] MEDS: VANCOMYCIN 1.5 GM in NA CHLORIDE 0.9% 500 ML IVPB SCH (11:36)
--- NOTE | 2021-09-19 14:07 | P.PN ---
Subjective Date of Service: 09/19/21 Subjective: No C/O voiced, Improving, Doing well Review of Systems 10-point ROS is otherwise unremarkable Physical Examination - Vital Signs Temperature: 97.4 F Blood Pressure: 168/68 Pulse: 51 Respirations: 18 Pulse Ox (%): 98 - Physical Exam General: Alert, In no apparent distress HEENT: Atraumatic, PERRLA, EOMI Neck: Supple, JVD not distended Respiratory: Clear to auscultation bilaterally, Normal air movement Cardiovascular: Regular rate/rhythm, Normal S1 S2 Gastrointestinal: Normal bowel sounds, No tenderness Musculoskeletal: No tenderness Integumentary: No rashes Neurological: Normal speech, Normal tone, Normal affect Lymphatics: No axilla or inguinal lymphadenopathy - Studies Medications List Reviewed: Yes Assessment & Plan - Problems (Diagnosis) (1) Acute osteomyelitis of left calcaneus Current Visit: Yes Status: Acute (2) Cellulitis of left foot Current Visit: Yes Status: Acute (3) CAD (coronary artery disease) Current Visit: Yes Status: Chronic Qualifiers: Coronary Disease-Associated Artery/Lesion type: bypass graft [place] vs. transplanted heart: [place] heart Associated angina: without angina Qualified Code(s): I25.810 - Atherosclerosis of coronary artery bypass graft(s) without angina pectoris (4) Hypertension Current Visit: Yes Status: Chronic Qualifiers: Hypertension type: primary hypertension Qualified Code(s): I10 - Essential (primary) hypertension (5) Type 2 diabetes mellitus Current Visit: Yes Status: Chronic Qualifiers: Diabetes mellitus parts counterman insulin use: without parts counterman use Diabetes mellitus complication status: with skin complications Diabetes mellitus complication detail: with foot ulcer Qualified Code(s): E11.621 - Type 2 diabetes mellitus with foot ulcer; L97.509 - Non-pressure chronic ulcer of other part of unspecified foot with unspecified severity - Plan 1. Continue with IV antibiotic 2. Continue with local wound care 3. Wound care consultation/surgical consultation Appreciated 4. Hep-Lock IV 5. Monitor CBC 6. Strict blood sugar monitoring 7. Pain control 8. GI and DVT prophylaxis Discharge Plan: Home Plan to discharge in: 48 Hours - Advance Directives Does patient have a Living Will: Yes Does patient have a Durable POA for Healthcare: No - Code Status/Comfort Care Code Status Assessed: Yes Code Status: Full Code Critical Care: No Time Spent Managing PTS Care (In Minutes): 35
[2021-09-19] MEDS: HYDRALAZINE HCL 20 MG/ML VIAL IV PRN (16:11)
[2021-09-19] MEDS ORDERED: DOCUSATE NA 100 MG CAP PO PRN (22:16)
[2021-09-19] MEDS: RIVAROXABAN 15 MG TABLET PO SCH (22:18)
[2021-09-19] MEDS: ATORVASTATIN 80 MG TAB PO SCH (22:19)
[2021-09-19] MEDS: AMIODARONE HCL 200 MG TAB PO SCH (22:19)
[2021-09-19] MEDS: ASPIRIN EC 81 MG TAB PO SCH (22:19)
[2021-09-20] MEDS: Meropenem 500 MG in NA CHLORIDE 0.9% 100 ML IV SCH ×3 (03:50→20:23)
[2021-09-20 06:52] LABS: Magnesium 2.3 mg/dL (1.8-2.4); Potassium 4.3 mmol/L (3.5-5.1)
[2021-09-20 06:59] LABS: Absolute Lymphocytes (CBC) 1.6 K/uL (0.7-4.9); Hematocrit 28.4 % (39.6-49.0); Lymphocytes % 14.7 % (15.3-44.8); MCV 83.4 fL (80-100); MPV 8.6 fL (7.6-11.3); RBC Red Blood Cell Count 3.41 M/uL (4.33-5.43)
[2021-09-20] MEDS: INSULIN -REGULAR HUMAN 50 UNIT/0.5 ML ML SQ SCH ×4 (07:30→20:24)
[2021-09-20] MEDS: carvediloL 25 MG TAB PO SCH ×2 (08:26→20:26)
[2021-09-20] MEDS: lisinopriL 20 MG TAB PO SCH ×2 (08:27→20:24)
[2021-09-20] MEDS: hydroCHLOROthiazide 12.5 MG CAP PO SCH (08:27)
[2021-09-20] MEDS: AMLODIPINE 5 MG TAB PO SCH (08:27)
[2021-09-20] MEDS: ALOGLIPTIN BENZOATE 12.5 MG TABLET PO SCH (08:27)
[2021-09-20] MEDS: VANCOMYCIN 1.5 GM in NA CHLORIDE 0.9% 500 ML IVPB SCH ×2 (12:00→12:52)
[2021-09-20] MEDS ORDERED: VANCOMYCIN 1.25 GM in NA CHLORIDE 0.9% 250 ML IVPB SCH (13:00)
[2021-09-20] MEDS: HYDRALAZINE HCL 20 MG/ML VIAL IV PRN (17:49)
[2021-09-20] MEDS: RIVAROXABAN 15 MG TABLET PO SCH (20:25)
[2021-09-20] MEDS: ATORVASTATIN 80 MG TAB PO SCH (20:25)
[2021-09-20] MEDS: ASPIRIN EC 81 MG TAB PO SCH (20:25)
[2021-09-20] MEDS: AMIODARONE HCL 200 MG TAB PO SCH (20:25)
[2021-09-21] MEDS: Meropenem 500 MG in NA CHLORIDE 0.9% 100 ML IV SCH ×2 (03:58→15:16)
--- NOTE | 2021-09-21 06:59 | ECHO ---
HEIGHT: 6 ft 5 in WEIGHT: 260 lb 0 oz DATE OF STUDY: 09/18/[address]: Maurilio Donato 2-DIMENSIONAL: YES M.MODE: YES DOPPLER: YES COLOR FLOW: YES TDS: PORTABLE: YES DEFINITY: BUBBLE STUDY: DIAGNOSIS: PREOP CARDIAC HISTORY: CATHERIZATION: YES SURGERY: YES PROSTHETIC VALVE: NO PACEMAKER: NO MEASUREMENTS (cm) DIASTOLIC (NORMALS) SYSTOLIC (NORMALS) IVSd 1.2 (0.6-1.2) LA Diam 4.9 (1.9-4.0) LVEF 60% LVIDd 4.8 (3.5-5.7) LVIDs 3.3 (2.0-3.5) %FS 32% LVPWd 1.2 (0.6-1.2) Ao Diam 3.0 (2.0-3.7) 2 DIMENSIONAL ASSESSMENT: RIGHT ATRIUM: NORMAL LEFT ATRIUM: ENLARAGED RIGHT VENTRICLE: NORMAL LEFT VENTRICLE: NORMAL TRICUSPID VALVE: NORMAL MITRAL VALVE: MILD MITRAL REGURGITATION PULMONIC VALVE: NORMAL AORTIC VALVE: NORMAL PERICARDIAL EFFUSION: NONE AORTIC ROOT: NORMAL LEFT VENTRICULAR WALL MOTION: NORMAL DOPPLER/COLOR FLOW: SEE BELOW COMMENTS: NORMAL LEFT VENTRICULAR EJECTION FRACTION 55-60 %. MILD MITRAL REGURGITATION. NORMAL WALL MOTION. TECHNOLOGIST: MARY RODRIGUEZ
--- NOTE | 2021-09-21 07:14 | TREADPHA ---
DX: PREOP Date of Study: 09/18/2021 Ht: 6' 5 " Wt: 260 lb 0 oz Consulting Physician: LENNIE MEDICATIONS: CORARONE, ASPIRIN, LIPITOR, COREG, HYDROCHLOROTHIAZIDE, NOVOLIN-R, PRINIVIL HISTORY: 76 YEAR OLD MALE WITH HISTORY OF DIABETES MELLITUS, CORONARY ARTERY BYPASS GRAFT, HYPERTENSION, HYPERLIPIDEMIA. COMPLAINTS OF CHEST PAIN. PHYSICIAL EXAMINATION: RESTING B.P.: 191/57 RESTING H.R.: 50 RESTING EKG: NORMAL SINUS RHYTHM WITH FIRST DEGREE AV BLOCK, RIGHT BUNDLE BRANCH BLOCK PROTOCOL: PHARMACOLOGIC EXERCISE TIME: 3:30 B.P. AT [place] STRESS: 176/59 IMPRESSION: LEXISCAN INJECTED, CARDIOLITE GIVEN PER PROTOCOL. SEE NUCLEAR MEDICINE REPORT. PATIENT COMPLAINTS OF SHORTNESS OF BREATH. NO PREMATURE VENTRICULAR COMPLEXES, PREMATURE ATRIAL COMPLEXES, SUPRAVENTRICULAR TACHYCARDIA, OR VENTRICULAR TACHYCARDIA NOTED. NO ELECTROCARDIOGRAM CHANGES OF ISCHEMIA.
[2021-09-21] MEDS: INSULIN -REGULAR HUMAN 50 UNIT/0.5 ML ML SQ SCH ×4 (07:30→21:15)
--- NOTE | 2021-09-21 07:59 | P.PN ---
Date of Service: 09/20/21 Subjective Patient is clinically doing well. Patient denies any new complaints. Patient is feeling much better and is ready to go home. He wants to go home with home health and he continue with antibiotics at discharge. He can continue with the wound care at the house to get of fluid can make arrangements and discharge in a.m. Review of Systems 10-point ROS is otherwise unremarkable Physical Examination - Vital Signs reviewed - Physical Exam General: Alert, In no apparent distress Respiratory: Clear to auscultation bilaterally, Normal air movement Cardiovascular: Regular rate/rhythm, Normal S1 S2 Gastrointestinal: Normal bowel sounds, No tenderness Neurological: Normal speech, Normal tone, Normal affect Foot: dressing C/D/I Assessment & Plan - Problems (Diagnosis) (1) Acute osteomyelitis of left calcaneus Current Visit: Yes Status: Acute (2) Cellulitis of left foot Current Visit: Yes Status: Acute (3) CAD (coronary artery disease) Current Visit: Yes Status: Chronic Qualifiers: Coronary Disease-Associated Artery/Lesion type: bypass graft [place] vs. transplanted heart: [place] heart Associated angina: without angina Qualified Code(s): I25.810 - Atherosclerosis of coronary artery bypass graft(s) without angina pectoris (4) Hypertension Current Visit: Yes Status: Chronic Qualifiers: Hypertension type: primary hypertension Qualified Code(s): I10 - Essential (primary) hypertension (5) Type 2 diabetes mellitus Current Visit: Yes Status: Chronic Qualifiers: Diabetes mellitus assisted insulin use: without terminal press operator use Diabetes mellitus complication status: with skin complications Diabetes mellitus c omplication detail: with foot ulcer Qualified Code(s): E11.621 - Type 2 diabetes mellitus with foot ulcer; L97.509 - Non-pressure chronic ulcer of other part of unspecified foot with unspecified severity - Plan Continue with plan of care as mentioned below: 1. Continue with IV antibiotic 2. Continue with local wound care 3. Wound care consultation/surgical consultation appreciated 4. Hep-Lock IV 5. Monitor CBC 6. Strict blood sugar monitoring 7. Pain control 8. GI and DVT prophylaxis Discharge Plan: Home Plan to discharge in: 24hrs with home health - Advance Directives Does patient have a Living Will: Yes Does patient have a Durable POA for Healthcare: No - Code Status/Comfort Care Code Status Assessed: Yes Code Status: Full Code Critical Care: No Time Spent Managing PTS Care (In Minutes): 35
[2021-09-21] MEDS: lisinopriL 20 MG TAB PO SCH ×2 (08:31→21:17)
[2021-09-21] MEDS: AMLODIPINE 5 MG TAB PO SCH (08:31)
[2021-09-21] MEDS: hydroCHLOROthiazide 12.5 MG CAP PO SCH (08:32)
[2021-09-21] MEDS: ALOGLIPTIN BENZOATE 12.5 MG TABLET PO SCH (08:32)
[2021-09-21] MEDS: carvediloL 25 MG TAB PO SCH ×2 (08:32→21:17)
[2021-09-21] MEDS: VANCOMYCIN 1.5 GM in NA CHLORIDE 0.9% 500 ML IVPB SCH (13:15)
[2021-09-21] MEDS: XIGDUO PO SCH (13:30)
--- NOTE | 2021-09-21 16:51 | P.PN ---
Subjective Date of Service: 09/21/21 Primary Care Provider: Dr. Li Chief Complaint: Cellulitus/Osteomyelitis L Foot Subjective: Improving No acute events overnight. Appears to be improving from a clinical standpoint. He is eager for discharge home. Currently, we are awaiting approval from Home Health for wound care and IV antibiotics. Review of Systems 10-point ROS is otherwise unremarkable Musculoskeletal: Foot Pain (left foot osteomyelitis) Integumentary: Rash (left foot) Physical Examination - Vital Signs Temperature: 97.8 F Blood Pressure: 182/79 Pulse: 53 Respirations: 14 Pulse Ox (%): 97 - Physical Exam General: Alert, In no apparent distress, Oriented x3 HEENT: Atraumatic, Mucous membr. moist/pink, EOMI, Sclerae nonicteric Neck: Supple, JVD not distended Respiratory: Clear to auscultation bilaterally, Normal air movement Cardiovascular: No edema, Regular rate/rhythm, Normal S1 S2, No gallops, No rubs, No murmurs Gastrointestinal: Normal bowel sounds, Soft and benign, Non-distended, No tenderness, No rebound, No guarding Musculoskeletal: No clubbing, Other (left foot covered in surgical dressing, which is clean, dry, and intact) Integumentary: No rashes Neurological: Normal speech - Studies Medications List Reviewed: Yes Assessment And Plan - Plan # Acute Osteomyelitis of Left Calcaneus secondary to Methicillin-Sensitive Staphylococcus Aureus # Left Foot Cellulitis - S/P excisional debridement down to fascia L necrotic diabetic foor ulcer 8x8cm with Dr. Rosa on 09/18/2021 - Infectious Diseases consulted and spoke with Dr. Dudley - He recommended levofloxacin 500 mg daily x 35 more days - Spoke with case management, we are trying to arrange Home Health for IV antibiotics and wound care - Anticipate discharge tomorrow if everything can be coordinated # Coronary Artery Disease s/p CABG # Hypertension - Continue home medications # Type II Diabetes Mellitus complicated by Diabetic Foot Ulcers - Correction scale insulin Guevara Hollis M.D. Discharge Plan: Home Plan to discharge in: 24 Hours
[2021-09-21] MEDS ORDERED: Levofloxacin500mg IV 500 MG/100 ML BAG IV SCH (17:00)
[2021-09-21] MEDS: HYDROCODONE/APAP 5/325 MG TAB PO PRN (17:36)
[2021-09-21] MEDS: Levofloxacin 750mg IV 750 MG/150 ML BAG IV SCH (17:37)
--- NOTE | 2021-09-21 18:53 | PN ---
Subjective: The patient is sitting in bed, not in any acute distress, having lunch. Denies any head ache, nausea, vomiting, chest pain, abdominal pain, constipation, or diarrhea. Objective: Vital Signs: Temperature 97, pulse 50, respirations 16, blood pressure 170/71. Lungs: Clear to auscultation. Heart: S1, S2. Regular. Abdomen: Soft, nontender. Bowel sounds present. Extremities: Wound noted. Laboratory Data: WBC 10.8, hemoglobin 9.5, platelets 349. Chemistry shows sugar of 226. Left wound cultures growing Staph aureus. The patient is currently being treated with Vanco and Merrem. Assessment And Plan: Left heel diabetic ulcer and osteomyelitis with significant past medical histor y of diabetic neuropathy and uncontrolled diabetes mellitus and multiple wounds in the past, being fo llowed at [facility]. Continue treatment for 6 weeks total. Monitor BMP, CBC, WBC, and feve r trends. We will follow the patient closely. Total course of 6 weeks. NF/MODL Voice ID: [id number] Report ID: [id number]
[2021-09-21] MEDS: RIVAROXABAN 15 MG TABLET PO SCH (21:16)
[2021-09-21] MEDS: ATORVASTATIN 80 MG TAB PO SCH (21:16)
[2021-09-21] MEDS: AMIODARONE HCL 200 MG TAB PO SCH (21:16)
[2021-09-21] MEDS: ASPIRIN EC 81 MG TAB PO SCH (21:16)
[2021-09-22 04:09] LABS: Absolute Lymphocytes (CBC) 1.7 K/uL (0.7-4.9); Hematocrit 27.7 % (39.6-49.0); Lymphocytes % 19.2 % (15.3-44.8); MCV 82.2 fL (80-100); MPV 8.9 fL (7.6-11.3); RBC Red Blood Cell Count 3.37 M/uL (4.33-5.43)
[2021-09-22 04:32] LABS: Bilirubin Total 0.3 mg/dL (0.2-1.0); Potassium 4.4 mmol/L (3.5-5.1)
[2021-09-22] MEDS: INSULIN -REGULAR HUMAN 50 UNIT/0.5 ML ML SQ SCH ×2 (07:30→12:17)
--- NOTE | 2021-09-22 08:43 | P.DS ---
Admission Date: 09/15/21 Discharge Date: 09/22/21 Primary Care Provider: Dr. Fitzgerald Disposition: DC HOME/HOME HEALTH CARE Discharge Condition: GOOD Reason for Admission: Cellulitus/Osteomyelitis L Foot Consultations: 1. Infectious Diseases 2. General Surgery Procedures: - 09/18/2021 - Excisional Debridement down to the Fascia of the Left Necrotic Diabetic Foot Ulcer Hospital Course: DIAGNOSES: # Acute Osteomyelitis of Left Calcaneus secondary to Methicillin-Sensitive Staphylococcus Aureus # Left Foot Cellulitis # Coronary Artery Disease s/p CABG # Hypertension # Type II Diabetes Mellitus complicated by Diabetic Foot Ulcers HOSPITAL COURSE: Mr. Geraldo El is a pleasant 76-year-old male with a past medical history significant for coronary artery disease s/p CABG, type 2 diabetes melitis complicated by diabetic foot ulcers, and hypertension who was admitted to the [facility] on 09/15/2021 for left foot cellulitis. Upon further evaluation, he was found to have acute osteomyelitis of the left calcaneus which returned positive for Methicillin-Sensitive Staphyloccous Aureus . General Surgery was consulted and he underwent excisional debridement down to the fascia of the left necrotic diabetic foot ulcer with Dr. Rosa on 09/18/2021. Infectious Diseases was consulted and Dr. Dudley evaluated him. He recommended that he be discharged with 35 additional days of levofloxacin to complete a 6-week course of IV antibiotics. With the assistance of case management, home health was arranged for him to receive wound care as well as his antibiotics. On 09/22/2021, he was seen on morning rounds and deemed medically stable for discharge. He was discharged with instructions to schedule follow-up appointments with his PCP (Dr. Fitzgerald) in 3-[address] Rosa (General Surgery) in 1-2 weeks. He was given the opportunity to ask questions and reported no further questions. Furthermore, all questions were answered to the best of my ability. Today, I personally spent 20 minutes on his case, of which greater than 50% of the time was spent in patient education, counseling, and coordination of care as described above. - Physical Exam General: Alert, In no apparent distress, Oriented x3 HEENT: Atraumatic, Mucous membr. moist/pink, EOMI, Sclerae nonicteric Neck: Supple, JVD not distended Respiratory: Clear to auscultation bilaterally, Normal air movement Cardiovascular: No edema, Regular rate/rhythm, Normal S1 S2, No gallops, No rubs, No murmurs Gastrointestinal: Normal bowel sounds, Soft and benign, Non-distended, No tenderness, No rebound, No guarding Musculoskeletal: No clubbing, Other (left foot covered in surgical dressing, which is clean, dry, and intact) Integumentary: No rashes Neurological: Normal speech Vital Signs/Physical Exam: Temp Pulse Resp BP Pulse Ox 97.8 F 51 16 178/89 H 99 09/22/21 08:00 09/22/21 08:00 09/22/21 08:00 09/22/21 09:00 09/22/21 08:00 Laboratory Data at Discharge: WBC 9.1 K/uL (4.3-10.9) D 09/22/21 03:58 Hgb 9.3 g/dL (13.6-17.9) L 09/22/21 03:58 Hct 27.7 % (39.6-49.0) L 09/22/21 03:58 Plt Count 339 K/uL (152-406) 09/22/21 03:58 PT 17.4 SECONDS (9.5-12.5) H 09/15/21 19:30 INR 1.57 09/15/21 19:30 Sodium 137 mmol/L (136-145) 09/22/21 03:58 Potassium 4.4 mmol/L (3.5-5.1) 09/22/21 03:58 BUN 23 mg/dL (7-18) H 09/22/21 03:58 Creatinine 1.35 mg/dL (0.55-1.3) H 09/22/21 03:58 Glucose 126 mg/dL (74-106) H 09/22/21 03:58 Phosphorus 2.7 mg/dL (2.5-4.9) 09/16/21 02:23 Magnesium 2.3 mg/dL (1.8-2.4) 09/20/21 06:21 Total Bilirubin 0.3 mg/dL (0.2-1.0) 09/22/21 03:58 AST 57 U/L (15-37) H 09/22/21 03:58 ALT 71 U/L (12-78) 09/22/21 03:58 Alkaline Phosphatase 81 U/L (45-117) 09/22/21 03:58 Home Medications: RX: Amiodarone HCl [Pacerone] 200 mg PO BEDTIME 09/16/21 RX: Aspirin [Aspirin EC 81 MG] 81 mg PO BEDTIME 09/16/21 RX: Atorvastatin Calcium [Lipitor] 80 mg PO BEDTIME 09/16/21 RX: Carvedilol [Coreg] 25 mg PO BID 09/16/21 RX: Rivaroxaban [Xarelto*] 15 mg PO BEDTIME 09/16/21 RX: Sitagliptin Phosphate [Januvia] 100 mg PO DAILY 09/16/21 RX: hydroCHLOROthiazide [Hydrochlorothiazide] 12.5 mg PO DAILY 09/16/21 RX: lisinopriL [Lisinopril] 20 mg PO BID 09/16/21 RX: Dapagliflozin/Metformin HCl [Xigduo Xr 5 mg-1,000 mg Tablet] 2 tab PO DAILY 09/21/21 Hydrocodone 5/APAP 325 [[place] 5/325] 1 tab PO Q6HP PRN #10 tab 09/22/21 RX: Amlodipine [Norvasc*] 5 mg PO DAILY #30 tab 09/22/21 New Medications: Hydrocodone 5/APAP 325 [[place] 5/325] 1 tab PO Q6HP PRN #10 tab PRN Reason: Pain Scale 8-10 (Severe) RX: Amlodipine [Norvasc*] 5 mg PO DAILY #30 tab Physician Discharge Instructions: 1. Please schedule follow-up with your PCP (Dr. Fitzgerald) in 3-5 days. 2. Please schedule follow-up with General Surgery (Dr. Rosa) in 5-7 days. Diet: ADA Activity: Ad brain Followup: Bhavik Rosa MD [ACTIVE - CAN ADMIT] - (Call to schedule appointment) Bj Fitzgerald MD [Primary Care Provider] - (call to schedule appointment.)
[2021-09-22] MEDS: hydroCHLOROthiazide 12.5 MG CAP PO SCH (09:00)
[2021-09-22] MEDS: lisinopriL 20 MG TAB PO SCH (09:00)
[2021-09-22] MEDS: AMLODIPINE 5 MG TAB PO SCH (09:01)
[2021-09-22] MEDS: XIGDUO PO SCH (09:01)
[2021-09-22] MEDS: carvediloL 25 MG TAB PO SCH (09:01)
[2021-09-22] MEDS: ALOGLIPTIN BENZOATE 12.5 MG TABLET PO SCH (09:02)
[2021-09-22 12:05] VITALS: BP 193/81; TEMP 98
[2021-09-22] MEDS: Levofloxacin 750mg IV 750 MG/150 ML BAG IV SCH (12:16)
[2021-09-22] MEDS: HYDROCODONE/APAP 5/325 MG TAB PO PRN (12:57)
== END 2021-09-22 14:53 | disposition home health service (06) | DRG 623 ==
LOC: ER 17:20 → ERHOLD 20:01 → 2ND 09-16 08:53
PROVIDERS: ADMIT Internal Medicine Nephrology; ATTEND Internal Medicine Nephrology
PROC: 02HV33Z Insertion of Infusion Device into Superior Vena Cava, Percutaneous Approach (ICD-10-PCS; 2021-09-18)
PROC: 3E04329 Introduction of Other Anti-infective into Central Vein, Percutaneous Approach (ICD-10-PCS; 2021-09-18)
PROC: 0JBR0ZZ Excision of Left Foot Subcutaneous Tissue and Fascia, Open Approach (ICD-10-PCS; principal; 2021-09-18 15:00)
DX: E11.69 Type 2 diabetes mellitus with other specified complication (principal); E11.52 Type 2 diabetes mellitus with diabetic peripheral angiopathy with gangrene; M86.172 Other acute osteomyelitis, left ankle and foot; I96 Gangrene, not elsewhere classified; L03.116 Cellulitis of left lower limb; E44.0 Moderate protein-calorie malnutrition; N17.9 Acute kidney failure, unspecified; B95.62 Methicillin resistant Staphylococcus aureus infection as the cause of diseases classified elsewhere; I25.10 Atherosclerotic heart disease of native coronary artery without angina pectoris; I10 Essential (primary) hypertension; E11.621 Type 2 diabetes mellitus with foot ulcer; Z68.30 Body mass index [BMI] 30.0-30.9, adult; D64.9 Anemia, unspecified; E78.5 Hyperlipidemia, unspecified; E11.40 Type 2 diabetes mellitus with diabetic neuropathy, unspecified; Z79.4 Long term (current) use of insulin; Z95.1 Presence of aortocoronary bypass graft; Z20.822 Contact with and (suspected) exposure to COVID-19
CPT/HCPCS: 36415; 71045; 78452; 80048; 80053; 80076; 80202; 81001; 81003; 82947; 83036; 83605; 83735; 83880; 84100; 84484; 85025; 85027; 85610; 85652; 86140; 87070; 87075; 87077; 87186; 87205; 87811; 88304; 93005; 93017; 93306; 96365; 96375; 99285; A9500; J0360; J1815; J2185; J2250; J2704; J2785; J3010; J3370; J7030; J7040; J7050; J7120

== ENCOUNTER 2023-07-16 17:04 | Emergency (ER) | payer OTHER ==
--- OUTSIDE RECORDS SUMMARY | 2023-07-16 17:10 | XMS REPORT | Continuity of Care Document ---
Author Name Unknown Address [address] [facility]. [address] [place] [id number] [facility] thconnect Address [address] [facility]. [address] [place] [address] Care Team Providers Care Ramp Jockey Name Role Phone JONES TRAN Primary Care Physician DR JONES Velazquez Attending Clinician Unavailab durand [phone] Attending Clinician Unavailable JONES TRAN Attending Clinician UnavailSURINDER Lemus Attending Clinician UnavailMARVIN Castillo Attending Clinician Guevara Boateng Attending Clinician UnavailDenisa Fleming [facility] Attending Clinician Unavailable GILLIAN SCHAEFER Attending Clinician Unavailable YASMANI ZHOU Attending Clinician Unavailable RIYA CHAPA Attending Clinician Unavail DR JONES Gonzáles Admitting Clinician SURINDER Valdez Admitting Clinician Guevara Patel Admitting Clinician UnavailOdilon Dong Admitting Clinician UnavailGILLIAN Rosario Admitting Clinician Unavailable YASMANI ZHOU Admitting Clinician Unavailable RIYA CHAPA Admitting Clinician Unavail williams Payers Payer Name Policy Type Policy Number Effective Date Expirati on Date Source Allergies, Adverse Reactions, Alerts Allergy Name Allergy Type Status Severity Reaction(s) Onset Date Inactive Date Treating Clinician Comments Source No Known Allergie s DA Active U 09-17 00:00: 00 [facility] Procedures Procedure Date / Time Performed Performing Clinicia n Source [id number] 2021-12-18 00:00:00 [facility] [id number] 2021-12-18 00:00:00 [facility] [id number] 2021-12-18 00:00:00 [facility] [id number] 2021-12-18 00:00:00 [facility] [id number] 2021-12-18 00:00:00 [facility] Encounters Start Date/Time End Date/Time Encounter Type Admission Type Attending [facility] Facility Care Department Encounter ID Source 2022-09-24 11:58:16 Outpatient JONES TRAN [id number] [facility] [id number] [facility] 2023-07-15 09:47:00 2023-07-15 09:47:00 Outpatient JONES SKY [facility] [id number] [facility] 2022-10-12 18:02:00 2022-10-16 20:26:00 Inpatient [facility] [id number] [facility] 2022-09-24 11:59:00 2022-09-24 11:59:00 Outpatient JONES GARCIA [id number] [facility] [id number] [facility] 2022-08-09 10:11:00 2022-08-09 10:11:00 Outpatient MARVIN STEWARD [facility] [id number] [facility] 2022-07-26 12:32:00 2022-07-26 12:32:00 Outpatient MARVIN STEWARD [facility] [id number] [facility] 2022-07-12 09:58:00 2022-07-12 09:58:00 Outpatient MARVIN STEWARD [facility] [id number] [facility] 2022-06-28 09:59:00 2022-06-28 09:59:00 Outpatient MARVIN STEWARD [facility] [id number] [facility] 2022-06-14 10:01:00 2022-06-14 10:01:00 Outpatient MARVIN STEWARD [facility] [id number] [facility] 2022-05-31 09:56:00 2022-05-31 09:56:00 Outpatient MARVIN STEWARD [facility] [id number] [facility] 2022-05-20 11:06:00 2022-05-20 11:06:00 Outpatient MARVIN STEWARD [facility] [id number] [facility] 2022-05-03 10:44:00 2022-05-03 10:44:00 Outpatient MARVIN STEWARD [facility] [id number] [facility] 2021-12-18 15:19:00 2021-12-21 12:17:00 Inpatient Guevara Harper [facility] [id number] [facility] 2021-12-12 05:37:00 2021-12-12 05:37:00 Outpatient Denisa Billy [facility] [id number] [facility] 2021-09-12 08:30:00 2021-09-12 08:30:00 Outpatient Denisa Harrington [facility] [id number] [facility] 2019-03-28 09:06:00 2019-03-28 09:06:00 Outpatient JONES SKY [facility] [id number] [facility] 2018-04-26 09:37:00 2018-04-26 09:37:00 Outpatient JONES SKY [facility] [id number] [facility] 2014-08-23 16:14:00 2014 13:24:00 Inpatient ER GILLIAN SCHAEFER [facility] [id number] [facility] 2010-12-21 15:50:00 2010-12-24 11:32:00 Inpatient YASMANI COLINDRES [facility] [id number] [facility] 2010-11-23 18:30:00 2010-11-25 11:49:00 Inpatient YASMANI COLINDRES [facility] [id number] [facility] 2006-05-22 04:14:00 2006-05-22 21:15:00 Inpatient RIYA KENNEDY [facility] [id number] [facility] Results Test Description Test Time Test Comments Results Result Co mments Source GLUCOSE BEDSIDE [id number] 07:57:00* Test Item Value Reference Range Interpretation Comme nts GLUCOSE BEDSIDE TESTING (kwasi t code = GLUBED) 157 MG/DL 60-99 H BASIC METABOLIC [id number] 05:36:00* Test Item Value Reference Range Interpretation Comme nts SODIUM (test code = NA) 135 MMOL/L 137-145 L POTASSIUM (test code = K) 4.2 MMOL/L 3.5-5.1 N CHLORIDE (test code = CL) 107 MMOL/L 98-107 N CARBON DIOXIDE (test code = CO2) 25 MMOL/L 22-30 N ANION GAP (test code = GAP) 7 MMOL/L 14-24 L GLUCOSE (test code = GLU) 167 MG/DL 74-106 H BLOOD UREA NITROGEN (test code = BUN) 33 MG/DL 9-20 H GLOMERULAR FILTRATION RATE (test code = GFR) 49 Reporting units: ml/min/1.73 m2 (Modified MDRD Formula)Reference Range: > or = 60 ml/min/1.73 m2 CREATININE (test code = CREAT) 1.40 MG/DL 0.66-1.25 H CALCIUM (test code = CA) 7.9 MG/DL 8.4-10.2 L GLYCOSYLATED HEMOGLOBIN [id number] 04:55:00* Test Item Value Reference Range Interpretation Comme nts GLYCOSYLATED HEMOGLOBIN (HA1C) (test code = GLYHGB) 7.6 % 4.8-5.9 H Any condition th at shortens erythocyte survival or decreasesmean erythrocyte age (e.g., recovery from acute blood loss,hemolytic anemia) will falsely lower HGBA1c resultsregardless of the method used. HGBA1c results from patientswith HbSS, HbCC, and HbSc must be interpreted with cautiongiven the pathological processes, including anemia,increased red cell turnover, transfusion requirements, thatadversely impact HGBA1c as a marker of long-term glycemiccontrol. Alternative forms of testing such as fructosamineshould be considered for these patients. MEAN BLOOD GLUCOSE (test code = MBG) 171 MG/DL 70-110 H CBC W/AUTO [id number] 04:51:00* Test Item Value Reference Range Interpretation Comme nts WHITE BLOOD CELL (test code = WBC) 9.2 K/MM3 3.8-9.8 N RED BLOOD CELL (test code = RBC) 3.33 M/MM3 3.95-5.67 L HEMOGLOBIN (test code = HGB) 9.3 G/DL 12.4-16.7 L HEMATOCRIT (test code = HCT) 29.6 % 35.9-49.5 L MEAN CELL VOLUME (test code = MCV) 89 fL 81.7-96.1 N MEAN CELL HGB (test code = MCH) 27.9 pg 27.6-33.2 N MEAN CELL HGB CONCETRATION (test code = MCHC) 31.4 % 32.9-35.5 L RED CELL DISTRIBUTION WIDTH (test code = RDW) 16.0 % 12.1-15.2 H PLATELET COUNT (test code = PLT) 171 K/MM3 129-368 N MEAN PLATELET VOLUME (test c ode = MPV) 11.4 fl 7.4-10.4 H NEUTROPHIL % (test code = NT%) 68.1 % 43-75 N IMMATURE GRANULOCYTE % (test code = IG%) 0.4 % 0.0-2.0 N LYMPHOCYTE % (test code = LY%) 17.0 % 14-44 N MONOCYTE % (test code = MO%) 12.2 % 4-13 N EOSINOPHIL % (test code = EO%) 1.9 % 0-6 N BASOPHIL % (test code = BA%) 0.4 % 0-2 N NUCLEATED RBC % (test code = NRBC%) 0.0 % 0-1.0 N NEUTROPHIL # (test code = NT#) 6.23 K/mm3 2.0-7.6 N IMMATURE GRANULOCYTE # (test code = IG#) 0.04 x10 3/uL 0-0.03 H LYMPHOCYTE # (test code = LY#) 1.56 K/mm3 1.0-3.8 N MONOCYTE # (test code = MO#) 1.12 K/mm3 0.1-0.8 H EOSINOPHIL # (test code = EO#) 0.17 K/mm3 0.0-0.2 N BASOPHIL # (test code = BA#) 0.04 K/mm3 0.0-0.2 N NUCLEATED RBC # (test code = NRBC#) 0.00 K/mm3 0.0-0.1 N GLUCOSE BEDSIDE [id number] 20:58:00* Test Item Value Reference Range Interpretation Comme nts GLUCOSE BEDSIDE TESTING (kwasi t code = GLUBED) 180 MG/DL 60-99 H GLUCOSE BEDSIDE [id number] 20:50:00* Test Item Value Reference Range Interpretation Comme nts GLUCOSE BEDSIDE TESTING (kwasi t code = GLUBED) 212 MG/DL 60-99 H GLUCOSE BEDSIDE [id number] 17:08:00* Test Item Value Reference Range Interpretation Comme nts GLUCOSE BEDSIDE TESTING (kwasi t code = GLUBED) 219 MG/DL 60-99 H GLUCOSE BEDSIDE [id number] 12:40:00* Test Item Value Reference Range Interpretation Comme nts GLUCOSE BEDSIDE TESTING (kwasi t code = GLUBED) 262 MG/DL 60-99 H BASIC METABOLIC [id number] 05:06:00* Test Item Value Reference Range Interpretation Comme nts SODIUM (test code = NA) 137 MMOL/L 137-145 N POTASSIUM (test code = K) 4.2 MMOL/L 3.5-5.1 N CHLORIDE (test code = CL) 107 MMOL/L 98-107 N CARBON DIOXIDE (test code = CO2) 23 MMOL/L 22-30 N ANION GAP (test code = GAP) 11 MMOL/L 14-24 L GLUCOSE (test code = GLU) 183 MG/DL 74-106 H BLOOD UREA NITROGEN (test code = BUN) 25 MG/DL 9-20 H GLOMERULAR FILTRATION RATE (test code = GFR) 59 Reporting units: ml/min/1.73 m2 (Modified MDRD Formula)Reference Range: > or = 60 ml/min/1.73 m2 CREATININE (test code = CREAT) 1.20 MG/DL 0.66-1.25 N CALCIUM (test code = CA) 8.1 MG/DL 8.4-10.2 L CBC W/AUTO [id number] 04:46:00* Test Item Value Reference Range Interpretation Comme nts WHITE BLOOD CELL (test code = WBC) 12.9 K/MM3 3.8-9.8 H RED BLOOD CELL (test code = RBC) 3.46 M/MM3 3.95-5.67 L HEMOGLOBIN (test code = HGB) 9.7 G/DL 12.4-16.7 L HEMATOCRIT (test code = HCT) 30.7 % 35.9-49.5 L MEAN CELL VOLUME (test code = MCV) 89 fL 81.7-96.1 N MEAN CELL HGB (test code = MCH) 28.0 pg 27.6-33.2 N MEAN CELL HGB CONCETRATION (test code = MCHC) 31.6 % 32.9-35.5 L RED CELL DISTRIBUTION WIDTH (test code = RDW) 15.9 % 12.1-15.2 H PLATELET COUNT (test code = PLT) 173 K/MM3 129-368 N MEAN PLATELET VOLUME (test c ode = MPV) 11.6 fl 7.4-10.4 H NEUTROPHIL % (test code = NT%) 75.0 % 43-75 N IMMATURE GRANULOCYTE % (test code = IG%) 0.5 % 0.0-2.0 N LYMPHOCYTE % (test code = LY%) 13.0 % 14-44 L MONOCYTE % (test code = MO%) 10.2 % 4-13 N EOSINOPHIL % (test code = EO%) 0.9 % 0-6 N BASOPHIL % (test code = BA%) 0.4 % 0-2 N NUCLEATED RBC % (test code = NRBC%) 0.0 % 0-1.0 N NEUTROPHIL # (test code = NT#) 9.68 K/mm3 2.0-7.6 H IMMATURE GRANULOCYTE # (test code = IG#) 0.06 x10 3/uL 0-0.03 H LYMPHOCYTE # (test code = LY#) 1.67 K/mm3 1.0-3.8 N MONOCYTE # (test code = MO#) 1.31 K/mm3 0.1-0.8 H EOSINOPHIL # (test code = EO#) 0.12 K/mm3 0.0-0.2 N BASOPHIL # (test code = BA#) 0.05 K/mm3 0.0-0.2 N NUCLEATED RBC # (test code = NRBC#) 0.00 K/mm3 0.0-0.1 N GLUCOSE BEDSIDE [id number] 20:07:00* Test Item Value Reference Range Interpretation Comme nts GLUCOSE BEDSIDE TESTING (kwasi t code = GLUBED) 201 MG/DL 60-99 H GLUCOSE BEDSIDE [id number] 16:46:00* Test Item Value Reference Range Interpretation Comme nts GLUCOSE BEDSIDE TESTING (kwasi t code = GLUBED) 233 MG/DL 60-99 H GLUCOSE BEDSIDE [id number] 12:16:00* Test Item Value Reference Range Interpretation Comme nts GLUCOSE BEDSIDE TESTING (kwasi t code = GLUBED) 295 MG/DL 60-99 H - XR CHEST [id number] 08:08:00 [facility] 1945 Sex: M Patient Name: GERALDO JAY Unit No: [id number] EXAMS: CPT CODE: [id number] XR CHEST 1V [id number] EXAM: - XR CHEST 1V Location: T18 HISTORY: s/p line placement COMPARISON: 12/18/2021 FINDINGS: Single AP view of the chest is provided. Heart size and vascularity are within normal limits. Round opacity over the left chest is likely external to the patient Mild basilar atelectasis without focal consolidation. No effusion. No pneumothorax, No acute osseous abnormality. Stable lines and tubes. IMPRESSION: 1. Stable chest at 0808 Reported and signed by: Pedrito Downey MD CC: Denisa Harrington MD; Odilon Adkins Technologist: Dagoberto araiza, RT(R) Transcrpt Date/Tm/Trnsp: 12/19/2021 (0808) [id number] Orig Print D/T: S: 12/19/2021 (0812) [facility] NAME: GERALDO JAY [address] PHYS: [place] [address] : 1945 AGE: 76 SEX: M LOC: Z.SI08 A PHONE #: [phone] EXAM DATE: 12/19/2021 STATUS: ADM IN FAX #: [phone] RADIOLOGY NO: PAGE 1 Signed ReportGLUCOSE BEDSIDE [id number] 07:17:00* Test Item Value Reference Range Interpretation Comme nts GLUCOSE BEDSIDE TESTING (kwasi t code = GLUBED) 275 MG/DL 60-99 H BASIC METABOLIC [id number] 06:04:00* Test Item Value Reference Range Interpretation Comme nts SODIUM (test code = NA) 136 MMOL/L 137-145 L POTASSIUM (test code = K) 4.9 MMOL/L 3.5-5.1 N CHLORIDE (test code = CL) 106 MMOL/L 98-107 N CARBON DIOXIDE (test code = CO2) 24 MMOL/L 22-30 N ANION GAP (test code = GAP) 11 MMOL/L 14-24 L GLUCOSE (test code = GLU) 267 MG/DL 74-106 H BLOOD UREA NITROGEN (test code = BUN) 26 MG/DL 9-20 H GLOMERULAR FILTRATION RATE (test code = GFR) 59 Reporting units: ml/min/1.73 m2 (Modified MDRD Formula)Reference Range: > or = 60 ml/min/1.73 m2 CREATININE (test code = CREAT) 1.20 MG/DL 0.66-1.25 N CALCIUM (test code = CA) 8.2 MG/DL 8.4-10.2 L [id number] 06:04:00* Test Item Value Reference Range Interpretation Comme nts MAGNESIUM (test code = MAG) 2.2 MG/DL 1.6-2.3 N CBC W/AUTO [id number] 05:27:00* Test Item Value Reference Range Interpretation Comme nts WHITE BLOOD CELL (test code = WBC) 11.5 K/MM3 3.8-9.8 H RED BLOOD CELL (test code = RBC) 3.74 M/MM3 3.95-5.67 L HEMOGLOBIN (test code = HGB) 10.6 G/DL 12.4-16.7 L HEMATOCRIT (test code = HCT) 32.7 % 35.9-49.5 L MEAN CELL VOLUME (test code = MCV) 87 fL 81.7-96.1 N MEAN CELL HGB (test code = MCH) 28.3 pg 27.6-33.2 N MEAN CELL HGB CONCETRATION (test code = MCHC) 32.4 % 32.9-35.5 L RED CELL DISTRIBUTION WIDTH (test code = RDW) 15.7 % 12.1-15.2 H PLATELET COUNT (test code = PLT) 174 K/MM3 129-368 N MEAN PLATELET VOLUME (test c ode = MPV) 11.3 fl 7.4-10.4 H NEUTROPHIL % (test code = NT%) 78.5 % 43-75 H IMMATURE GRANULOCYTE % (test code = IG%) 0.4 % 0.0-2.0 N LYMPHOCYTE % (test code = LY%) 13.5 % 14-44 L MONOCYTE % (test code = MO%) 7.3 % 4-13 N EOSINOPHIL % (test code = EO%) 0.1 % 0-6 N BASOPHIL % (test code = BA%) 0.2 % 0-2 N NUCLEATED RBC % (test code = NRBC%) 0.0 % 0-1.0 N NEUTROPHIL # (test code = NT#) 8.99 K/mm3 2.0-7.6 H IMMATURE GRANULOCYTE # (test code = IG#) 0.05 x10 3/uL 0-0.03 H LYMPHOCYTE # (test code = LY#) 1.55 K/mm3 1.0-3.8 N MONOCYTE # (test code = MO#) 0.84 K/mm3 0.1-0.8 H EOSINOPHIL # (test code = EO#) 0.01 K/mm3 0.0-0.2 N BASOPHIL # (test code = BA#) 0.02 K/mm3 0.0-0.2 N NUCLEATED RBC # (test code = NRBC#) 0.00 K/mm3 0.0-0.1 N GLUCOSE BEDSIDE [id number] 00:55:00* Test Item Value Reference Range Interpretation Comme nts GLUCOSE BEDSIDE TESTING (kwasi t code = GLUBED) 272 MG/DL 60-99 H - XR CHEST [id number] 16:12:00 [facility] 1945 Sex: M Patient Name: GERALDO JAY Unit No: [id number] EXAMS: CPT CODE: [id number] XR CHEST 1V [id number] EXAM: - XR CHEST 1V Location: T18 HISTORY: s/p line placement COMPARISON: 12/17/2021. FINDINGS: Single AP view of the chest is provided. Heart size and vascularity are within normal limits. Left basilar atelectasis. No effusion. No pneumothorax, No acute osseous abnormality. Surgical clips and surgical drain over the right neck. Prior sternotomy. New left subclavian catheter with tip over the SVC. IMPRESSION: 1. New left subclavian catheter without pneumothorax. at 1612 Reported and signed by: Pedrito Downey MD CC: Denisa Harrington MD; Odilon Adkins Technologist: Shanta Saleh RT Transcrpt Date/Tm/Trnsp: 12/18/2021 (1612) [id number] Orig Print D/T: S: 12/18/2021 (1619) [facility] NAME: GERALDO JAY [address] [place] PHYS: [place] [address] : 1945 AGE: 76 SEX: M : Z.SI08 A PHONE #: [phone] EXAM DATE: 12/18/2021 STATUS: ADM IN FAX #: [phone] RADIOLOGY NO: PAGE 1 Signed ReportCBC W/AUTO [id number] 15:44:00* Test Item Value Reference Range Interpretation Comme nts WHITE BLOOD CELL (test code = WBC) 7.8 K/MM3 3.8-9.8 N RED BLOOD CELL (test code = RBC) 3.60 M/MM3 3.95-5.67 L HEMOGLOBIN (test code = HGB) 10.1 G/DL 12.4-16.7 L HEMATOCRIT (test code = HCT) 31.2 % 35.9-49.5 L MEAN CELL VOLUME (test code = MCV) 87 fL 81.7-96.1 N MEAN CELL HGB (test code = MCH) 28.1 pg 27.6-33.2 N MEAN CELL HGB CONCETRATION (test code = MCHC) 32.4 % 32.9-35.5 L RED CELL DISTRIBUTION WIDTH (test code = RDW) 15.7 % 12.1-15.2 H PLATELET COUNT (test code = PLT) 167 K/MM3 129-368 MEAN PLATELET VOLUME (test c ode = MPV) 11.4 fl 7.4-10.4 H NEUTROPHIL % (test code = NT%) 64.4 % 43-75 N IMMATURE GRANULOCYTE % (test code = IG%) 0.6 % 0.0-2.0 N LYMPHOCYTE % (test code = LY%) 20.6 % 14-44 N MONOCYTE % (test code = MO%) 7.6 % 4-13 N EOSINOPHIL % (test code = EO%) 5.9 % 0-6 N BASOPHIL % (test code = BA%) 0.9 % 0-2 N NUCLEATED RBC % (test code = NRBC%) 0.0 % 0-1.0 N NEUTROPHIL # (test code = NT#) 5.02 K/mm3 2.0-7.6 N IMMATURE GRANULOCYTE # (test code = IG#) 0.05 x10 3/uL 0-0.03 H LYMPHOCYTE # (test code = LY#) 1.61 K/mm3 1.0-3.8 N MONOCYTE # (test code = MO#) 0.59 K/mm3 0.1-0.8 N EOSINOPHIL # (test code = EO#) 0.46 K/mm3 0.0-0.2 H BASOPHIL # (test code = BA#) 0.07 K/mm3 0.0-0.2 N NUCLEATED RBC # (test code = NRBC#) 0.00 K/mm3 0.0-0.1 N BASIC METABOLIC [id number] 15:44:00* Test Item Value Reference Range Interpretation Comme nts SODIUM (test code = NA) 138 MMOL/L 137-145 N POTASSIUM (test code = K) 4.7 MMOL/L 3.5-5.1 N CHLORIDE (test code = CL) 106 MMOL/L 98-107 N CARBON DIOXIDE (test code = CO2) 24 MMOL/L 22-30 N ANION GAP (test code = GAP) 13 MMOL/L 14-24 L GLUCOSE (test code = GLU) 162 MG/DL 74-106 H BLOOD UREA NITROGEN (test code = BUN) 25 MG/DL 9-20 H GLOMERULAR FILTRATION RATE (test code = GFR) 59 Reporting units: ml/min/1.73 m2 (Modified MDRD Formula)Reference Range: > or = 60 ml/min/1.73 m2 CREATININE (test code = CREAT) 1.20 MG/DL 0.66-1.25 CALCIUM (test code = CA) 8.2 MG/DL 8.4-10.2 L [id number] 15:44:00* Test Item Value Reference Range Interpretation Comme nts MAGNESIUM (test code = MAG) 2.1 MG/DL 1.6-2.3 N ARTERIAL BLOOD [id number] 15:29:00* Test Item Value Reference Range Interpretation Comme nts ARTERIAL BLOOD GAS PH (test code = PHA) 7.39 mmHg 7.35-7.45 N ARTERIAL BLOOD GAS PCO2 (test code = PCO2A) 38.9 mmHg 35.0-45.0 N ARTERIAL BLOOD GAS PO2 (test code = PO2A) 110.4 mmol/L 80.0-100.0 H BICARBONATE TOTAL HCO3 (test code = HCO3) 22.8 mmol/L 20.0-26.0 N BASE EXCESS (test code = ADAN) -1.9 mmol/L -3.0-3.0 N ABG O2 SATURATION (test code = SATA) 98.0 % 95.0-100.0 N ABG L/M (test code = L/M) 9 L/MIN ABG DELIVERY (test code = GRACIE) SMASK ABG TEMPERATURE (test code = TEMPA) 37.0 C See_Comment [Automated messa ge] The system which generated this result transmitted reference range: 37. The reference range was not used to interpret this result as normal/abnormal. ABG SITE (test code = SITEA) AL ALLENS TEST (test code = ALLENS) NA CHECK FIO2 (test code = COHBGFFIO2) 50 % GLUCOSE BEDSIDE [id number] 09:14:00* Test Item Value Reference Range Interpretation Comme nts GLUCOSE BEDSIDE TESTING (kwasi t code = GLUBED) 211 MG/DL 60-99 H HIV 12 AB [id number] 18:13:00* Test Item Value Reference Range Interpretation Comme nts HIV 1 2 COMBO AG/AB SCREEN (test code = [id number]) AB/AG NON REACTIVE NONREACTIVE BASIC METABOLIC [id number] 17:17:00* Test Item Value Reference Range Interpretation Comme nts SODIUM (test code = NA) 137 MMOL/L 137-145 N POTASSIUM (test code = K) 4.6 MMOL/L 3.5-5.1 N CHLORIDE (test code = CL) 100 MMOL/L 98-107 N CARBON DIOXIDE (test code = CO2) 26 MMOL/L 22-30 N GLUCOSE (test code = GLU) 253 MG/DL 74-106 H BLOOD UREA NITROGEN (test code = BUN) 32 MG/DL 9-20 H GLOMERULAR FILTRATION RATE (test code = GFR) 42 Reporting units: ml/min/1.73 m2 (Modified MDRD Formula)Reference Range: > or = 60 ml/min/1.73 m2 CREATININE (test code = CREAT) 1.60 MG/DL 0.66-1.25 H CALCIUM (test code = CA) 8.6 MG/DL 8.4-10.2 N PROTHROMBIN [id number] 17:14:00* Test Item Value Reference Range Interpretation Comme nts PROTHROMBIN TIME PATIENT (test code = PTP) 12.4 SECONDS 9.4-12.7 N INTERNATIONAL NORMAL RATIO (test code = INR) 1.1 0.86-1.14 N The INR is to be used only for monitoring oral anticoagulanttherap y. INDICATION INR VALUE -------1. Prophylaxis, deep venous thrombosis, including high risk surgery. 2.0 - 3.0 2. Prophylaxis, deep venous thrombosis, hip surgery, treatment for deep venous thrombosis or pulmonary prevention of systemic embolism in patients with valvular heart disease, atrial fibrillation, tissue heart valve, or acute myocardial infarction. 2.0 - 3.0 3. Mechanical prosthesis heart valves, recurrent systemic embolism. 3.0 - 4.5 PTT [id number] 17:14:00* Test Item Value Reference Range Interpretation Comme [facility] PTT ACTIVATED (test code = APTT) 28.6 SECONDS 26.2-35.4 N - XR CHEST 2 [id number] 17:12:00 [facility] 1945 Sex: M Patient Name: GERALDO JAY Unit No: [id number] EXAMS: CPT CODE: [id number] XR CHEST 2 V [id number] CHEST, TWO VIEWS Dictation Location: N13 CLINICAL HISTORY: PREOP Technique: PA frontal and lateral views were obtained. FINDINGS: There has been prior midline sternotomy. Aortic, hilar, and cardiac outlines are normal. The pulmonary vasculature is normal. Lungs are clear of infiltrates or suspicious nodules. No pleural effusion or pneumothorax. IMPRESSION: Clear lungs. No acute findings demonstrated. at 1712 Reported and signed by: Makayla Dong M.D. CC: Denisa Harrington MD; Odilon Adkins Technologist: Hailey Quijano (RTR) Transcrpt Date/Tm/Trnsp: 12/17/2021 (171) t.SDR.MVT Orig Print D/T: S: 12/17/2021 (243) [facility] NAME: GERALDO JAY [id number] [place] PHYS: [place] [address] : 1945 AGE: 76 SEX: M LOC: [place] PHONE #: [phone] EXAM DATE: 12/17/2021 STATUS: PRE IN FAX #: [phone] RADIOLOGY NO: PAGE 1 Signed ReportCBC W/AUTO DIFF 2021-12-17 17:02:00* Test Item Value Reference Range Interpretation Comme nts WHITE BLOOD CELL (test code = WBC) 8.2 K/MM3 3.8-9.8 N RED BLOOD CELL (test code = RBC) 4.13 M/MM3 3.95-5.67 N HEMOGLOBIN (test code = HGB) 11.6 G/DL 12.4-16.7 L HEMATOCRIT (test code = HCT) 36.4 % 35.9-49.5 N MEAN CELL VOLUME (test code = MCV) 88 fL 81.7-96.1 N MEAN CELL HGB (test code = MCH) 28.1 pg 27.6-33.2 N MEAN CELL HGB CONCETRATION (test code = MCHC) 31.9 % 32.9-35.5 L RED CELL DISTRIBUTION WIDTH (test code = RDW) 15.7 % 12.1-15.2 H PLATELET COUNT (test code = PLT) 221 K/MM3 129-368 N MEAN PLATELET VOLUME (test c ode = MPV) 11.8 fl 7.4-10.4 H NEUTROPHIL % (test code = NT%) 53.7 % 43-75 N IMMATURE GRANULOCYTE % (test code = IG%) 0.4 % 0.0-2.0 N LYMPHOCYTE % (test code = LY%) 27.5 % 14-44 N MONOCYTE % (test code = MO%) 11.1 % 4-13 N EOSINOPHIL % (test code = EO%) 6.2 % 0-6 H BASOPHIL % (test code = BA%) 1.1 % 0-2 N NUCLEATED RBC % (test code = NRBC%) 0.0 % 0-1.0 N NEUTROPHIL # (test code = NT#) 4.39 K/mm3 2.0-7.6 N IMMATURE GRANULOCYTE # (test code = IG#) 0.03 x10 3/uL 0-0.03 N LYMPHOCYTE # (test code = LY#) 2.25 K/mm3 1.0-3.8 N MONOCYTE # (test code = MO#) 0.91 K/mm3 0.1-0.8 H EOSINOPHIL # (test code = EO#) 0.51 K/mm3 0.0-0.2 H BASOPHIL # (test code = BA#) 0.09 K/mm3 0.0-0.2 N NUCLEATED RBC # (test code = NRBC#) 0.00 K/mm3 0.0-0.1 N BASIC METABOLIC [id number] 06:49:00* Test Item Value Reference Range Interpretation Comme nts SODIUM (test code = NA) 137 MMOL/L 137-145 N POTASSIUM (test code = K) 4.8 MMOL/L 3.5-5.1 N CHLORIDE (test code = CL) 103 MMOL/L 98-107 N CARBON DIOXIDE (test code = CO2) 23 MMOL/L 22-30 N ANION GAP (test code = GAP) 16 MMOL/L 14-24 N GLUCOSE (test code = GLU) 120 MG/DL 74-106 H BLOOD UREA NITROGEN (test code = BUN) 31 MG/DL 9-20 H GLOMERULAR FILTRATION RATE (test code = GFR) 37 Reporting units: ml/min/1.73 m2 (Modified MDRD Formula)Reference Range: > or = 60 ml/min/1.73 m2 CREATININE (test code = CREAT) 1.80 MG/DL 0.66-1.25 H CALCIUM (test code = CA) 8.9 MG/DL 8.4-10.2 N LIPID PROFILE (CORONARY RISK)2021-12-12 06:49:00* Test Item Value Reference Range Interpretation Comme nts TRIGLYCERIDES (test code = TRIG) 96 MG/DL 150-199 L TRIGLYCERIDES REFERENCE RANGE:Normal: <150 mg/dLBorderline High: 150-199 mg/dLHigh: 200-499 mg/dLVery High: >=500 mg/dL CHOLESTEROL (test code = CHOL) 128 MG/DL <200 HDL CHOLESTEROL (test code = HDL) 33 MG/DL 40-59 L LIPOPROTEIN LDL (test code = LDL) 67 MG/DL 0-99 N OPTIMAL......... <100 mg/dLNEAR OPTIMAL/ABOVE OPTIMAL.........100-12 9 mg/dL BORDERLINE HIGH.........130-159 mg/dL HIGH.........160-189 mg/dL VERY HIGH.........>/= 190 mg/dL [id number] 06:49:00* Test Item Value Reference Range Interpretation Comme nts MAGNESIUM (test code = MAG) 2.1 MG/DL 1.6-2.3 N PROTHROMBIN [id number] 06:29:00* Test Item Value Reference Range Interpretation Comme [facility] PROTHROMBIN TIME PATIENT (test code = PTP) 12.5 SECONDS 9.4-12.7 N INTERNATIONAL NORMAL RATIO (test code = INR) 1.1 0.86-1.14 N The INR is to be used only for monitoring oral anticoagulanttherap y. INDICATION INR VALUE -------1. Prophylaxis, deep venous thrombosis, including high risk surgery. 2.0 - 3.0 2. Prophylaxis, deep venous thrombosis, hip surgery, treatment for deep venous thrombosis or pulmonary prevention of systemic embolism in patients with valvular heart disease, atrial fibrillation, tissue heart valve, or acute myocardial infarction. 2.0 - 3.0 3. Mechanical prosthesis heart valves, recurrent systemic embolism. 3.0 - 4.5 PTT [id number] 06:29:00* Test Item Value Reference Range Interpretation Comme nts PTT ACTIVATED (test code = APTT) 28.0 SECONDS 26.2-35.4 N CBC W/AUTO [id number] 06:19:00* Test Item Value Reference Range Interpretation Comme nts WHITE BLOOD CELL (test code = WBC) 10.8 K/MM3 3.8-9.8 H RED BLOOD CELL (test code = RBC) 4.18 M/MM3 3.95-5.67 N HEMOGLOBIN (test code = HGB) 11.8 G/DL 12.4-16.7 L HEMATOCRIT (test code = HCT) 36.9 % 35.9-49.5 N MEAN CELL VOLUME (test code = MCV) 88 fL 81.7-96.1 N MEAN CELL HGB (test code = MCH) 28.2 pg 27.6-33.2 N MEAN CELL HGB CONCETRATION (test code = MCHC) 32.0 % 32.9-35.5 L RED CELL DISTRIBUTION WIDTH (test code = RDW) 16.0 % 12.1-15.2 H PLATELET COUNT (test code = PLT) 230 K/MM3 129-368 N MEAN PLATELET VOLUME (test c ode = MPV) 11.7 fl 7.4-10.4 H NEUTROPHIL % (test code = NT%) 58.2 % 43-75 N IMMATURE GRANULOCYTE % (test code = IG%) 0.4 % 0.0-2.0 N LYMPHOCYTE % (test code = LY%) 24.8 % 14-44 N MONOCYTE % (test code = MO%) 10.5 % 4-13 N EOSINOPHIL % (test code = EO%) 5.2 % 0-6 N BASOPHIL % (test code = BA%) 0.9 % 0-2 N NUCLEATED RBC % (test code = NRBC%) 0.0 % 0-1.0 N NEUTROPHIL # (test code = NT#) 6.28 K/mm3 2.0-7.6 N IMMATURE GRANULOCYTE # (test code = IG#) 0.04 x10 3/uL 0-0.03 H LYMPHOCYTE # (test code = LY#) 2.68 K/mm3 1.0-3.8 N MONOCYTE # (test code = MO#) 1.13 K/mm3 0.1-0.8 H EOSINOPHIL # (test code = EO#) 0.56 K/mm3 0.0-0.2 H BASOPHIL # (test code = BA#) 0.10 K/mm3 0.0-0.2 N NUCLEATED RBC # (test code = NRBC#) 0.00 K/mm3 0.0-0.1 N COVID 19 Asymptomatic IH [id number] 05:59:00* Test Item Value Reference Range Interpretation Comme nts COVID 19 Asymptomatic IH AG (test code = COVNONPUIAG) NEGATIVE Negative "Negative result s from patients with symptom onset beyondfive days, should be treated as presumptive, andconfirmation with a molecular assay, if necessary forpatient management may be performed. Negative results do notrule out COVID-19 and should not be used as the sole basisfor treatment or patient management decisions, includinginfection control decisions. Negative results should beconsidered in the context of a patients recent exposures,history, and the presence of clinical signs and symptomsconsistent with COVID-19.This test detects both viable andnon-viable SARS-CoV and SARS CoV-2.Test performance dependson the amount of virus (antigen) in the sample." Notes Date/Time Note Provider Source 2021-12-25 13:45:00 [id number]:45:39229 4-[address] [place] [address] PATIENT NAME: GERALDO JAY ADMIT DATE: 12/18/21ACCOUNT NO: [id number] ROOM NO: [facility] AGE: 76 REPORT TYPE: 360 - QUERY RESPONSE DOCUMENT SEX: M ADMITTING PHYSICIAN:Guevara Patino MD ATTENDING PHYSICIAN:Guevara Patino MD Provider Query QUERY TEXT: Condition Renal 360MD Query related questions should be directed to: CHAPARRO MORRISON RN, BSN [email or web address] Based on your clinical judgment, can you provide the known or suspected condition(s) that represent(s) the clinical indicators listed below? The patient's Clinical Indicators include:Creatinine - 12/17/2021 16:41 - 1.6?BUN - 12/17/2021 16:41 - 32?GFR (Non-AA) - 12/17/2021 16:41 - 42 Creatinine - 12/20/2021 04:08- 1.2BUN - 12/20/2021 04:08- 25GFR (Non-AA)- 12/20/2021 04:08- 59Options provided:-- Acute renal failure/Acute kidney injury-- Acute renal failure with tubular necrosis-- Acute renal insufficiency-- Chronic kidney disease, Please specify stage (i.e., stage 1, 2, 3a, 3b, 3, 4, or 5).-- End stage renal disease-- Other - I will add my own diagnosis-- Dismiss - Not applicable / Not valid-- Dismiss - Clinically unable to determine / Unknown-- Assign to another provider QUERY RESPONSE: The patient has acute renal insufficiency. Query created by: Alesha Salter on 12/22/2021 10:55 AM at 1345 PATIENT NAME: GERALDO JAY noteZ.[id number] for patient [id number]:46:17 [facility] 2021-12-21 17:23:00 [id number]/lLJDrne5T4okYaqO79CQ YH77PXkd8jpEvCafgTjH+kq76Av2057-89-51S55:23:00 [facility]Hospital[facility] Progress NoteREPORT#:[id number] REPORT STATUS: SignedDATE:12/21/21 TIME: 1722 PATIENT: GERALDO JAY UNIT #: [id number]#: [id number] [address] AGE: 76 SEX: M ATTEND: SukumarGuevara Ajay MDADM AUTHOR: Irving Alcantara MD * ALL edits or amendments must be made on the electronic/computer document * SubjectiveChief complaint:s/p Right carotid endarterectomyHPI:POD #3. No acute overnight events. Post-op pain well controlled and pt ambulating without difficulty. HTN and DM2 vcontrolled on current meds. Pt scheduled for home discharge today Review of SystemsConstitutional:Denies: chills, fatigue, fever, generalized weakness, lethargy, malaise, recent wt loss, other. Respiratory:Denies: KANG (dyspnea on exertion), hemoptysis, non productive cough, parox nocturnal dyspnea, pleurisy, pleuritic pain, pneumonia, productive cough (sputum), SOB, wheezing, other. Cardiovascular:Denies: chest pain, KANG (dyspnea on exertion), edema, orthopnea, palpitations, parox nocturnal dyspnea, other. GI:Denies: abdominal pain, anorexia, constipation, diarrhea, dysphagia, GERD, hematemesis, hematochezia, hiatal hernia, melena, nausea, rectal pain, vomiting,other. All systems rev neg: except as marked Objective GeneralVS/I O:Vital Signs: Date Time Temp Pulse Resp B/P B/P Pulse O2 O2 Flow FiO2 Mean Ox Delivery Rate 12/21 0800 98.2 Nasal 4 cannula 12/21 0800 Nasal 4 cannula 12/21 0700 57 10 96 12/21 0656 60 38 138/65 93 93 12/21 0650 97 Nasal 4 36 cannula 12/21 0641 57 33 137/65 93 93 12/21 0626 58 23 136/62 89 90 12/21 0611 60 15 140/65 93 91 12/21 0556 59 17 135/63 91 91 12/21 0541 56 14 128/57 87 94 12/21 0530 56 15 94 12/21 05 56 14 126/60 86 93 12/21 0511 56 14 126/58 84 93 12/21 0456 57 14 128/59 85 94 12/21 0441 57 16 128/60 86 95 12/21 0426 57 12 129/59 85 96 12/21 0411 57 19 125/59 85 96 12/21 0400 98.0 12/21 0356 59 17 125/58 84 96 12/21 0341 56 15 127/60 86 94 12/21 0326 56 15 124/60 87 94 12/21 0311 56 16 121/60 86 94 12/21 0256 56 14 122/60 86 95 12/21 0241 56 14 117/59 85 94 12/21 0226 58 24 113/58 83 96 12/21 0211 56 14 121/59 85 93 12/21 0156 56 14 110/56 81 93 12/21 0141 57 15 124/58 83 93 12/21 0126 57 15 122/59 85 93 12/21 0111 58 16 124/60 86 95 12/21 0056 60 15 121/56 81 96 12/21 0041 61 23 123/85 99 94 12/21 0026 57 16 120/56 81 95 12/21 0011 57 15 123/60 87 93 12/21 0000 97.8 12/20 2356 57 15 117/58 84 94 12/20 2341 57 16 118/58 84 93 12/20 2326 57 18 117/58 83 96 12/20 2311 56 15 112/57 82 95 12/20 2256 56 15 111/56 81 93 12/20 2241 57 16 115/56 81 93 12/20 2226 58 15 118/56 81 93 12/20 2211 59 12/20 2211 17 113/58 83 93 12/20 2156 60 15 129/63 90 93 12/20 2141 61 16 128/62 89 94 12/20 2126 68 38 144/67 96 95 12/20 2123 69 25 143/66 95 95 12/20 2115 66 24 95 12/20 2108 63 14 148/65 94 96 12/206 65 21 147/67 96 96 12/201 63 17 143/63 91 97 12/20 2026 60 16 145/65 93 95 12/20 2015 60 16 95 12/20 2011 60 15 137/65 93 95 12/21 1999 97.6 12/20 2000 60 16 95 12/20 1956 60 16 138/65 94 94 12/20 1945 60 16 131/63 90 95 12/20 1933 59 17 131/60 87 96 12/20 1900 67 27 141/65 94 95 24 hour I O ending at 0700: 12/21 0700 12/20 1900 Intake Total 300.00 1120.00 Output Total 100 250 Balance 200.00 870.00 Intake, IV 300.00 1120.00 Output, Urine 100 250 PATIENT WEIGHT: Weight (lb): 256Weight (oz): 8.62Weight (kg): 116.12 Medications:Active Meds + DC'd Last 24 HrsInsulin Glargine (Lantus/Semglee) 5 UNITS BEDTIME SUBQ Famotidine (PEPCID) 20 MG BID PO Gabapentin (NEURONTIN) 100 MG 2100 PO Hydralazine HCl (APRESOLINE) 20 MG Q6H PRN PRN IV Aspirin (ASPIRIN EC) 81 MG DAILY PO Clopidogrel Bisulfate (PLAVIX) 75 MG DAILY PO Hydrochlorothiazide (HYDRODIURIL) 12.5 MG DAILY PO Linagliptin (TRADJENTA) 5 MG DAILY PO Amiodarone HCl (CORDARONE) 200 MG BEDTIME PO Atorvastatin Calcium (LIPITOR) 80 MG BEDTIME PO Carvedilol (COREG) 25 MG BID PO Lisinopril (PRINIVIL) 20 MG BID PO Mupirocin (BACTROBAN NASAL - ADULT ICU) 1 APPLIC BID NASAL Insulin Human Lispro (HumaLOG) HIGH DOSE SLIDING SCALE AC HS SUBQ Dextrose/Water (DEXTROSE 50% IN WATER) 12.5 GM ASDIR PRN IV Dextrose/Water (DEXTROSE 50% IN WATER) 25 GM ASDIR PRN IV Glucagon (GLUCAGON) 1 MG ASDIR IM (CKD) Benzocaine/Menthol (Cepacol Sore Throat Lozenge) 1 TAB Q2H PRN PRN MM (CKD) Calcium Gluconate/Sodium Chloride (Calcium Gluconate 1 GM/NS 100 mL) 100 ML ASDIR PRN IV Hydralazine HCl (APRESOLINE) 10 MG Q8H PRN PRN IV Hydrocodone Bitart/Acetaminophen (NORCO 5/325 TABLET (C-II)) 1 TAB Q4H PRN PRN PO Hydrocodone Bitart/Acetaminophen (NORCO 5/325 TABLET (C-II)) 2 TAB Q4H PRN PRN PO Nicardipine HCl (CARDENE I.V.) 25 MG ASDIR PRN IV (CKD) Sodium Chloride (SODIUM CHLORIDE 0.9%) 250 MLOndansetron HCl (ZOFRAN) 4 MG Q8H PRN PRN IV Phenol (Chloraseptic 1.4%) 5 SPRAY Q2H PRN PRN MM Potassium Chloride (KLOR-CON M20) 20 MEQ ASDIR PRN PO Potassium Chloride (Potassium Chloride) 50 ML ASDIR PRN IV Potassium Chloride/Dextrose/Sod Cl (DEXTROSE 5%-1/2NS-KCL 20MEQ) 1,000 ML Q12H IV Physical ExamGeneral appearance: obese, alert, awake, conversationalHead/Eyes: atraumatic, EOMI, normal conjunctiva/sclera, normocephalicENT: moist mucosal membranes, normal dentitionNeck: full range of motion, supple/no meningismusCardiovascular: normal capillary refill, regular rate rhythmRespiratory: aerating well, symmetric expansion, no distressAbdomen: non-tender, normal bowel sounds, soft, no distentionExtremities: moves all, normal capillary refill, normal range of motion, no calftenderness, left foot bandagedMusculoskeletal: no CVA tenderness, no midline vertebral tend, no muscle spasm, no paraspinal tendernessNeuro/REWINDER: alert, oriented X 3, normal speechSkin: dry, CVC noted on the left subclavian area, Left radial a-line notedPsychiatry: normal affect, normal judgment/insight, normal mood ResultsFindings/Data:Laboratory Tests 12/21 12/21 12/21 12/20 0755 [id number] [id number] Chemistry Sodium (137 - 145 MMOL/L) 135 L Potassium (3.5 - 5.1 MMOL/L) 4.2 Chloride (98 - 107 MMOL/L) 107 Carbon Dioxide (22 - 30 MMOL/L) 25 Anion Gap (14 - 24 MMOL/L) 7 L BUN (9 - 20 MG/DL) 33 H Creatinine (0.66 - 1.25 MG/DL) 1.40 H Glomerular Filtr Rate 49 Glucose (74 - 106 MG/DL) 167 H POC Glucose (60 - 99 MG/DL) 157 H 180 H Mean Blood Glucose (70 - 110 MG/DL) 171 H Hemoglobin A1c (4.8 - 5.9 %) 7.6 H Calcium (8.4 - 10.2 MG/DL) 7.9 L Laboratory Tests 12/21 5038 Hematology WBC (3.8 - 9.8 K/MM3) 9.2 RBC (3.95 - 5.67 M/MM3) 3.33 L Hgb (12.4 - 16.7 G/DL) 9.3 L Hct (35.9 - 49.5 %) 29.6 L MCV (81.7 - 96.1 fL) 89 MCH (27.6 - 33.2 pg) 27.9 MCHC (32.9 - 35.5 %) 31.4 L RDW (12.1 - 15.2 %) 16.0 H Plt Count (129 - 368 K/MM3) 171 MPV (7.4 - 10.4 fl) 11.4 H Neut % (Auto) (43 - 75 %) 68.1 Lymph % (Auto) (14 - 44 %) 17.0 Geary % (Auto) (4 - 13 %) 12.2 Eos % (Auto) (0 - 6 %) 1.9 Baso % (Auto) (0 - 2 %) 0.4 Neut # (Auto) (2.0 - 7.6 K/mm3) 6.23 Lymph # (Auto) (1.0 - 3.8 K/mm3) 1.56 Geary # (Auto) (0.1 - 0.8 K/mm3) 1.12 H Eos # (Auto) (0.0 - 0.2 K/mm3) 0.17 Baso # (Auto) (0.0 - 0.2 K/mm3) 0.04 Immature Gran % (0.0 - 2.0 %) 0.4 Nucleated RBC % (0 - 1.0 %) 0.0 Nucleated RBCs # (Man) (0.0 - 0.1 K/mm3) 0.00 Treatment Prophylaxis Treatment ProphylaxisOxygen: room airLines: arterial, CVC Diagnosis, Assessment Plan Free Text DxA P NotesFree text DxA P notes:Problem List/A P: 1. S/P carotid endarterectomy 76 y/o male with a hx of T2DM, HTN, paroxysmal A-fib, CAD s/p CABG in 2018 admitted after a right carotid endarterectomy perform by Dr. Patino on 12/18. - POD #3 - Doing well - Afebrile - Currently on ASA, Plavix, and Lipitor - No longer on Cardene drip - For discharge today 2. Carotid stenosis, bilateral As above 3. Coronary artery disease 4. HTN (hypertension), benign Home meds continued 5. T2DM (type 2 diabetes mellitus) Home meds continued. ssi 6. Peripheral arterial disease Pt medically stable for home discharge today DVT PPx: scd. PlavixDiet: Consistent Carb Diet Quality: Gen Med Crit Care VTE ProphylaxisVTE prophylaxis initiated: yes (Plavix) Current MedicationsCurrent medication review:I attest that the foregoing medication list in the medical record is true, accurate, and complete to the best of my knowledge. Advanced Care Plan 65 or OlderDiscussed with: patientDiscussion included: code status (full code) at 1726 [facility] #:[id number] OF REPORTPRProgress [id number]:23:00Z.[id number] able for patient oozjWKKNYAQFFYSUNZ3780-74-39C86:27:03 [facility] 2021-12-21 12:43:00 [id number]/[id number] FTTjNcB+7IIs2XHZ/dXGx3FRAzJ3788-99-65C09:43:58454 1-[address] [place] [address] PATIENT NAME: GERALDO JAY ADMIT DATE: 12/18/21ACCOUNT NO: [id number] ROOM NO: [facility] AGE: 76 REPORT TYPE: PROGRESS NOTE SEX: M ADMITTING PHYSICIAN:Guevara Patino MD ATTENDING PHYSICIAN:Guevara Patino MD DATE: 12/20/2021 CARDIAC SURGERY SERVICE The patient is seen at bedside in the ICU. The patient currently is stable. JPdrain is removed. The patient is making good progress from a physical standpoint. The patient ambulating well. Neurologically intact. Plan for discharge home tomorrow. Dictated By: Guevara Patino MD Date Dictated: 12/21/2021 12:43:41Date Transcribed: 12/21/2021 15:10:28NAHOMY/[place] #: [id number] ID: [id number] by Guevara Patino MD On 01/19/2022 08:45:56 AM at 0845 PATIENT NAME: GERALDO JAY [id number]:10:00Z.[id number] ble for patient ggvyWFBAUZUONOLTSP5375-93-86T34:46:23 [facility] 2021-12-21 09:46:00 [id number] X2lTwKRalmQSZBk3M7OGY8Y+JED9842-64-32N26:46:00 [facility] ([facility])Cardiology Progress NoteREPORT#:[id number] REPORT STATUS: SignedDATE:12/21/21 TIME: 0946 PATIENT: GERALDO JAY UNIT #: [id number]#: [id number] [address] AGE: 76 SEX: M ATTEND: Guevara Patino [facility] AUTHOR: Odilon Adkins MD * ALL edits or amendments must be made on the electronic/computer document * SubjectiveChief complaint:Right carotid disease.Patient reports:No: chest pain, palpitations, shortness of breath. Objective GeneralVS/I O:24 hour I O ending at 0700: 12/21 0712/20 1900 Intake Total 300.00 1120.00 Output Total 100 250 Balance 200.00 870.00 Intake, IV 300.00 1120.00 Output, Urine 100 250 Vital Signs: Date Time Temp Pulse Resp B/P B/P Pulse O2 O2 Flow FiO2 Mean Ox Delivery Rate 12/22 799 98.2 Nasal 4 cannula 12/21 08 Nasal 4 cannula 12/21 699 57 10 96 12/22 655 60 38 138/65 93 93 12/21 640 57 33 137/65 93 93 10/31 0626 58 23 136/62 89 90 12/21 0611 60 15 140/65 93 91 12/21 0556 59 17 135/63 91 91 12/21 0541 56 14 128/57 87 94 12/21 0530 56 15 94 12/21 0526 56 14 126/60 86 93 12/21 0511 56 14 126/58 84 93 12/21 0456 57 14 128/59 85 94 12/21 0441 57 16 128/60 86 95 12/21 0426 57 12 129/59 85 96 12/21 0411 57 19 125/59 85 96 12/21 0400 98.0 12/21 0356 59 17 125/58 84 96 12/21 0341 56 15 127/60 86 94 12/21 0326 56 15 124/60 87 94 12/21 0311 56 16 121/60 86 94 12/21 0256 56 14 122/60 86 95 12/21 0241 56 14 117/59 85 94 12/21 0226 58 24 113/58 83 96 12/21 0211 56 14 121/59 85 93 12/21 0156 56 14 110/56 81 93 12/21 0141 57 15 124/58 83 93 12/21 0126 57 15 122/59 85 93 12/21 0111 58 16 124/60 86 95 12/21 0056 60 15 121/56 81 96 12/21 0041 61 23 123/85 99 94 12/21 0026 57 16 120/56 81 95 12/21 0011 57 15 123/60 87 93 12/21 0000 97.8 12/20 2356 57 15 117/58 84 94 12/20 2341 57 16 118/58 84 93 12/20 2326 57 18 117/58 83 96 12/20 2311 56 15 112/57 82 95 12/20 2256 56 15 111/56 81 93 12/20 2241 57 16 115/56 81 93 12/20 2226 58 15 118/56 81 93 12/20 2211 59 12/20 2211 17 113/58 83 93 12/20 2156 60 15 129/63 90 93 12/20 2141 61 16 128/62 89 94 12/20 2126 68 38 144/67 96 95 12/20 2123 69 25 143/66 95 95 12/20 2115 66 24 95 12/20 2108 63 14 148/65 94 96 12/21 2055 65 21 147/67 96 96 12/201 63 17 143/63 91 97 12/20 2025 60 16 145/65 93 95 12/20 2014 60 16 95 12/20 2010 60 15 137/65 93 95 12/21 1999 97.6 12/21 1999 60 16 95 12/20 1956 60 16 138/65 94 94 12/20 1945 60 16 131/63 90 95 12/20 1933 59 17 131/60 87 96 12/20 1900 67 27 141/65 94 95 12/20 1625 64 24 97 12/20 1615 65 26 96 12/20 1600 97.4 Nasal 4 cannula 12/20 1600 60 18 148/67 97 97 12/20 1545 60 16 96 12/20 1544 60 17 97 12/20 1530 60 18 97 12/20 1515 60 18 97 12/20 1500 59 18 134/61 88 97 12/20 1445 59 17 95 12/20 1430 64 26 98 12/20 1415 60 18 95 12/20 1400 61 17 132/60 86 95 12/20 1345 70 36 96 12/20 1330 68 26 95 12/20 1315 62 19 86 12/20 1300 63 19 128/61 88 87 12/20 1200 97.2 Nasal 4 cannula 12/20 1200 68 29 129/60 87 91 12/20 1145 68 17 93 12/20 1140 67 20 143/66 95 94 12/20 1130 68 12 97 12/20 1120 Nasal cannula 12/20 1115 38 95 12/20 1100 62 19 144/63 91 93 12/20 1045 61 20 92 12/20 1030 97.1 Nasal 4 cannula 12/20 1030 62 17 96 12/20 1015 61 20 92 12/20 1000 67 21 134/60 86 96 PATIENT WEIGHT: Weight (lb): 256Weight (oz): 8.62Weight (kg): 116.12 Medications:Active Meds + DC'd Last 24 HrsInsulin Glargine (Lantus/Semglee) 5 UNITS BEDTIME SUBQ Famotidine (PEPCID) 20 MG BID PO Gabapentin (NEURONTIN) 100 MG 2100 PO Hydralazine HCl (APRESOLINE) 20 MG Q6H PRN PRN IV Aspirin (ASPIRIN EC) 81 MG DAILY PO Clopidogrel Bisulfate (PLAVIX) 75 MG DAILY PO Hydrochlorothiazide (HYDRODIURIL) 12.5 MG DAILY PO Linagliptin (TRADJENTA) 5 MG DAILY PO Amiodarone HCl (CORDARONE) 200 MG BEDTIME PO Atorvastatin Calcium (LIPITOR) 80 MG BEDTIME PO Carvedilol (COREG) 25 MG BID PO Lisinopril (PRINIVIL) 20 MG BID PO Mupirocin (BACTROBAN NASAL - ADULT ICU) 1 APPLIC BID NASAL Insulin Human Lispro (HumaLOG) HIGH DOSE SLIDING SCALE AC HS SUBQ Dextrose/Water (DEXTROSE 50% IN WATER) 12.5 GM ASDIR PRN IV Dextrose/Water (DEXTROSE 50% IN WATER) 25 GM ASDIR PRN IV Glucagon (GLUCAGON) 1 MG ASDIR IM (CKD) Benzocaine/Menthol (Cepacol Sore Throat Lozenge) 1 TAB Q2H PRN PRN MM (CKD) Calcium Gluconate/Sodium Chloride (Calcium Gluconate 1 GM/NS 100 mL) 100 ML ASDIR PRN IV Hydralazine HCl (APRESOLINE) 10 MG Q8H PRN PRN IV Hydrocodone Bitart/Acetaminophen (NORCO 5/325 TABLET (C-II)) 1 TAB Q4H PRN PRN PO Hydrocodone Bitart/Acetaminophen (NORCO 5/325 TABLET (C-II)) 2 TAB Q4H PRN PRN PO Nicardipine HCl (CARDENE I.V.) 25 MG ASDIR PRN IV (CKD) Sodium Chloride (SODIUM CHLORIDE 0.9%) 250 MLOndansetron HCl (ZOFRAN) 4 MG Q8H PRN PRN IV Phenol (Chloraseptic 1.4%) 5 SPRAY Q2H PRN PRN MM Potassium Chloride (KLOR-CON M20) 20 MEQ ASDIR PRN PO Potassium Chloride (Potassium Chloride) 50 ML ASDIR PRN IV Potassium Chloride/Dextrose/Sod Cl (DEXTROSE 5%-1/2NS-KCL 20MEQ) 1,000 ML Q12H IV Physical ExamGeneral appearance: alert, awake, orientedHead/Eyes: atraumatic, normocephalicENT: moist mucosal membranesNeck: no JVDCardiovascular: CV assessment: regular rate and rhythmRespiratory: clear to auscultation, no distressLower extremity: LE assessment: no edemaMusculoskeletal: full range of motionNeuro/REWINDER: alert, oriented X 3, CN II-XII intactSkin: dry, intactPsychiatry: normal affect, normal judgment/insight, normal mood ResultsFindings/Data:Laboratory Tests 12/21 12/21 12/21 12/20 12/20 0755 0435 0435 2056 1707 Chemistry Sodium (137 - 145 MMOL/L) 135 L Potassium (3.5 - 5.1 MMOL/L) 4.2 Chloride (98 - 107 MMOL/L) 107 Carbon Dioxide (22 - 30 MMOL/L) 25 Anion Gap (14 - 24 MMOL/L) 7 L BUN (9 - 20 MG/DL) 33 H Creatinine (0.66 - 1.25 MG/DL) 1.40 H Glomerular Filtr Rate 49 Glucose (74 - 106 MG/DL) 167 H POC Glucose (60 - 99 MG/DL) 157 H 180 H 219 H Mean Blood Glucose (70 - 110 MG/DL) 171 H Hemoglobin A1c (4.8 - 5.9 %) 7.6 H Calcium (8.4 - 10.2 MG/DL) 7.9 L 12/20 1237 Chemistry POC Glucose (60 - 99 MG/DL) 262 H Laboratory Tests 12/21 0435 Hematology WBC (3.8 - 9.8 K/MM3) 9.2 RBC (3.95 - 5.67 M/MM3) 3.33 L Hgb (12.4 - 16.7 G/DL) 9.3 L Hct (35.9 - 49.5 %) 29.6 L MCV (81.7 - 96.1 fL) 89 MCH (27.6 - 33.2 pg) 27.9 MCHC (32.9 - 35.5 %) 31.4 L RDW (12.1 - 15.2 %) 16.0 H Plt Count (129 - 368 K/MM3) 171 MPV (7.4 - 10.4 fl) 11.4 H Neut % (Auto) (43 - 75 %) 68.1 Lymph % (Auto) (14 - 44 %) 17.0 Geary % (Auto) (4 - 13 %) 12.2 Eos % (Auto) (0 - 6 %) 1.9 Baso % (Auto) (0 - 2 %) 0.4 Neut # (Auto) (2.0 - 7.6 K/mm3) 6.23 Lymph # (Auto) (1.0 - 3.8 K/mm3) 1.56 Geary # (Auto) (0.1 - 0.8 K/mm3) 1.12 H Eos # (Auto) (0.0 - 0.2 K/mm3) 0.17 Baso # (Auto) (0.0 - 0.2 K/mm3) 0.04 Immature Gran % (0.0 - 2.0 %) 0.4 Nucleated RBC % (0 - 1.0 %) 0.0 Nucleated RBCs # (Man) (0.0 - 0.1 K/mm3) 0.00 Diagnosis, Assessment Plan Free Text DxA P NotesFree Text DxA P Notes:Imp: Right carotid disease s/p RCEA 12/18/21 PLAN: Continue current medical rx. Ambulate at 1048 RPT #:[id number] OF REPORTPRProgress [id number]:46:00Z.[id number] able for patient [id number]:48:29 [facility] 2021-12-21 09:02:00 [id number] [id number]+eDhIFnB3mIA [id number]:02:[id number] 1-[address] [address] PATIENT NAME: GERALDO JAY ADMIT DATE: 12/18/21ACCOUNT NO: [id number] ROOM NO: Z.SI08 AGE: 76 REPORT TYPE: DISCHARGE SUMMARY REPORT SEX: M ADMITTING PHYSICIAN:Guevara Patino MD ATTENDING PHYSICIAN:Guevara Patino MD ADMISSION DATE: 12/18/2021 15:19:00DISCHARGE DATE: 12/21/2021 12:17:00 DISCHARGE DIAGNOSES: Right carotid artery stenosis, status post right carotid endarterectomy, coronary artery disease status post coronary artery bypass surgery, peripheral vascular disease, status post left fem-pop bypass, paroxysmal atrial fibrillation, diabetes mellitus, hypertension, slow healing ulcer to the left heel. HOSPITAL COURSE: The patient is a 76-year-old male well-known to our services with a history of peripheral vascular disease and coronary artery disease, who is status post a left fem-pop bypass and coronary artery bypass surgery. The patient was noted to have worsening of his right internal carotid artery stenosis, which was measuring about 80%. He was admitted on 12/19/2021 and taken to the operating room where he underwent a right carotid endarterectomy with Hemashield patch arterioplasty. The patient tolerated the procedure well and was transferred to ICU in a stable condition where he maintained normal sinus rhythm and stable blood pressure. The patient was temporarily placed on Cardene drip for management of his blood pressure but once his oral antihypertensives were restarted, Cardene drip was weaned off. The patient remained stable postoperatively having had a good outcome from surgery. He willbe discharged to home in stable condition. He has been instructed to continue taking his medications as prescribed and his neurological status remained intact. He has also been instructed to follow up with Dr. Harrington. Dictated By: VINAY Owusu for Guevara Patino MD Date Dictated: 12/21/2021 09:02:26Date Transcribed: 12/22/2021 00:35:41KCJ/AFSJob #: [id number] ID: [id number] by VINAY Owusu On 12/23/2021 01:40:53 PM Authenticated by Guevara Patino MD On 01/19/2022 08:45:58 AM at 0845 at 0140 PATIENT NAME: GERALDO JAY [id number]:35:00Z.[id number] ilable for patient bpztIXTWTKYVFYFXNN3853-97-58D90:46:33 [facility] 2021-12-21 08:16:00 [id number] /GU363tXZ44twXlQuZSgWY9p/z5N+ BnPdSKCWAsR9OiytVH/6byPXGpb0755-88-83F04:16:13487 1-[address] [address] PATIENT NAME: GERALDO JAY ADMIT DATE: 12/18/21ACCOUNT NO: [id number] ROOM NO: Z.SI08 AGE: 76 REPORT TYPE: PROGRESS NOTE SEX: M ADMITTING PHYSICIAN:Guevara Patino MD ATTENDING PHYSICIAN:Guevara Patino MD DATE: 12/21/2021 CARDIOLOGY PROGRESS NOTE REFERRING PHYSICIAN: Guevara Patino MD This note is done for Dr. Odilon Adkins. CLINICAL INFORMATION: Status post carotid endarterectomy. Hypertension. HISTORY OF PRESENT ILLNESS: The patient is off nicardipine drip and tolerating. OBJECTIVE:VITAL SIGNS: Stable. Art-line has been removed. ASSESSMENT AND PLAN: The patient is making good postoperative recovery. He should be able to be discharged home today. He will follow up with Dr. Adkins. Dictated By: Taurus Pickard MD Date Dictated: 12/21/2021 08:16:18Date Transcribed: 12/21/2021 08:59:31AA/YACJob #: [id number] ID: [id number] by Taurus Pickard MD On 12/29/2021 07:42:04 AM at 0742 PATIENT NAME: GERALDO JAY dnis1507-33-89P09:59:00Z.[id number] ble for patient spuqKWDFADVVDLXQPR5127-10-44L89:42:39 [facility] 2021-12-20 17:23:00 [id number] tyNP0QJd+8bBsn0GVLs/FRd89Juvu ivxmqvabH0HpdvOnBoBCT6KaIR03373-97-57J25:23:00 [facility] ([facility])Hospitalist Progress NoteREPORT#:[id number] REPORT STATUS: SignedDATE:12/20/21 TIME: 1723 PATIENT: GERALDO JAY UNIT #: [id number]#: [id number] [address] AGE: 76 SEX: M ATTEND: Guevara Patino [facility] AUTHOR: Saurabh Obando MD * ALL edits or amendments must be made on the electronic/computer document * SubjectiveChief complaint:s/p Right carotid endarterectomyHPI:POD #1. No acute overnight events. No longer on Cardene drip. Denies fever, chills, chest pain, back pain, abdominal pain, leg pain, leg swelling, or dyspnea. He worked with PT earlier today and mentions that he did well. Free Text Subj NotesFree Text Subj Notes:doing well. denies any chest pain or sob. some mild pain from right neck surgical incision Review of SystemsAll systems rev neg: except as marked Objective GeneralVS/I O:Vital Signs: Date Time Temp Pulse Resp B/P B/P Pulse O2 O2 Flow FiO2 Mean Ox Delivery Rate 12/20 1625 64 24 97 12/20 1615 65 26 96 12/20 1600 60 18 148/67 97 97 12/20 1545 60 16 96 12/20 1544 60 17 97 12/20 1530 60 18 97 12/20 1515 60 18 97 12/20 1500 59 18 134/61 88 97 12/20 1445 59 17 95 12/20 1430 64 26 98 12/20 1415 60 18 95 12/20 1400 61 17 132/60 86 95 12/20 1345 70 36 96 12/20 1330 68 26 95 12/20 1315 62 19 86 12/20 1300 63 19 128/61 88 87 12/20 1200 68 29 129/60 87 91 12/20 1145 68 17 93 12/20 1140 67 20 143/66 95 94 12/20 1130 68 12 97 12/20 1120 Nasal cannula 12/20 1115 38 95 12/20 1100 62 19 144/63 91 93 12/20 1045 61 20 92 10 1030 36.2 Nasal 4 cannula 12/20 1030 62 17 96 10 1015 61 20 92 10/ 1000 67 21 134/60 86 96 10 0945 65 18 97 10 0932 98 Nasal 4 36 cannula 12/20 0930 65 20 98 10 0915 67 23 98 10 0911 63 17 134/60 87 98 10 0900 60 17 92 10 0845 60 17 91 10 0836 61 19 97 10 0830 64 19 96 10 0815 61 17 90 10 0800 62 18 86 10 0745 68 24 92 10 0730 71 34 93 12/20 0715 72 25 92 10 0700 64 17 99 12/20 0645 63 17 100 12/20 0630 64 18 100 12/20 0615 63 16 100 12/20 0600 64 16 98 12/20 0545 64 16 98 12/20 0530 64 17 98 12/20 0515 63 16 98 12/20 0500 70 26 97 12/20 0445 67 25 96 12/20 0430 69 26 98 12/20 0415 68 24 96 12/20 0400 36.9 12/20 0400 62 16 93 12/20 0345 62 17 93 12/20 0330 62 16 93 12/20 0315 62 18 93 12/20 0300 68 30 98 12/20 0245 60 16 99 12/20 0230 61 15 99 12/20 0215 61 19 99 12/20 0200 61 19 98 12/20 0145 62 28 99 12/20 0130 62 18 100 12/20 0115 65 18 100 12/20 0100 60 14 95 12/20 0045 60 15 97 12/20 0030 60 14 96 12/20 0015 60 14 97 12/20 0000 36.1 12/20 0000 60 15 96 12/19 2000 36.6 12/20 1999 4 12/19 1808 64 21 149/68 98 98 12/19 1753 62 25 161/70 101 99 12/19 1738 58 16 153/68 98 94 24 hour I O ending at 0700: 12/20 0700 12/19 1900 Intake Total 750.00 Output Total 95 420 Balance 655.00 -420 Intake, IV 750.00 Output, 20 20 Drainage Output, Urine 75 400 Patient 116.12 kg Weight PATIENT WEIGHT: Weight (lb): 256Weight (oz): 8.62Weight (kg): 116.12 Medications:Active Meds + DC'd Last 24 HrsFamotidine (PEPCID) 20 MG BID PO Gabapentin (NEURONTIN) 100 MG 2100 PO Hydralazine HCl (APRESOLINE) 20 MG Q6H PRN PRN IV Labetalol HCl (TRANDATE, NORMODYNE) 20 MG Q4H PRN PRN IV (CAN) Aspirin (ASPIRIN EC) 81 MG DAILY PO Clopidogrel Bisulfate (PLAVIX) 75 MG DAILY PO Hydrochlorothiazide (HYDRODIURIL) 12.5 MG DAILY PO Linagliptin (TRADJENTA) 5 MG DAILY PO Amiodarone HCl (CORDARONE) 200 MG BEDTIME PO Atorvastatin Calcium (LIPITOR) 80 MG BEDTIME PO Carvedilol (COREG) 25 MG BID PO Lisinopril (PRINIVIL) 20 MG BID PO Mupirocin (BACTROBAN NASAL - ADULT ICU) 1 APPLIC BID NASAL Insulin Human Lispro (HumaLOG) HIGH DOSE SLIDING SCALE AC HS SUBQ Dextrose/Water (DEXTROSE 50% IN WATER) 12.5 GM ASDIR PRN IV Dextrose/Water (DEXTROSE 50% IN WATER) 25 GM ASDIR PRN IV Glucagon (GLUCAGON) 1 MG ASDIR IM (CKD) Benzocaine/Menthol (Cepacol Sore Throat Lozenge) 1 TAB Q2H PRN PRN MM (CKD) Calcium Gluconate/Sodium Chloride (Calcium Gluconate 1 GM/NS 100 mL) 100 ML ASDIR PRN IV Hydralazine HCl (APRESOLINE) 10 MG Q8H PRN PRN IV Hydrocodone Bitart/Acetaminophen (NORCO 5/325 TABLET (C-II)) 1 TAB Q4H PRN PRN PO Hydrocodone Bitart/Acetaminophen (NORCO 5/325 TABLET (C-II)) 2 TAB Q4H PRN PRN PO Nicardipine HCl (CARDENE I.V.) 25 MG ASDIR PRN IV (CKD) Sodium Chloride (SODIUM CHLORIDE 0.9%) 250 MLOndansetron HCl (ZOFRAN) 4 MG Q8H PRN PRN IV Phenol (Chloraseptic 1.4%) 5 SPRAY Q2H PRN PRN MM Potassium Chloride (KLOR-CON M20) 20 MEQ ASDIR PRN PO Potassium Chloride (Potassium Chloride) 50 ML ASDIR PRN IV Potassium Chloride/Dextrose/Sod Cl (DEXTROSE 5%-1/2NS-KCL 20MEQ) 1,000 ML Q12H IV Dietitian nutrition assessmentThe data set between the solid lines has been imported from the dietitian's assessment. BMI Calculated: 30.4Nutrition related diagnosis: Nutrition diagnosis details: Nutrition problem: Nutrition etiology: Nutrition signs and symptoms: Nutrition prescription: Dietitian name: Assessment completed: Physical ExamHead/Eyes: atraumatic, EOMI, normal conjunctiva/sclera, normocephalicENT: moist mucosal membranes, normal dentitionNeck: full range of motion, supple/no meningismusCardiovascular: normal capillary refill, regular rate rhythmRespiratory: aerating well, symmetric expansion, no distressAbdomen: non-tender, normal bowel sounds, soft, no distentionExtremities: moves all, normal capillary refill, normal range of motion, no calftenderness, left foot bandagedMusculoskeletal: no CVA tenderness, no midline vertebral tend, no muscle spasm, no paraspinal tendernessNeuro/REWINDER: alert, oriented X 3, normal speechSkin: dry, CVC noted on the left subclavian area, Left radial a-line notedPsychiatry: normal affect, normal judgment/insight, normal mood ResultsFindings/Data:Laboratory Tests 12/20 12/20 12/20 12/19 1707 1237 0408 2006 Chemistry Sodium (137 - 145 MMOL/L) 137 Potassium (3.5 - 5.1 MMOL/L) 4.2 Chloride (98 - 107 MMOL/L) 107 Carbon Dioxide (22 - 30 MMOL/L) 23 Anion Gap (14 - 24 MMOL/L) 11 L BUN (9 - 20 MG/DL) 25 H Creatinine (0.66 - 1.25 MG/DL) 1.20 Glomerular Filtr Rate 59 Glucose (74 - 106 MG/DL) 183 H POC Glucose (60 - 99 MG/DL) 219 H 262 H 201 H Calcium (8.4 - 10.2 MG/DL) 8.1 L Laboratory Tests 12/20 0408 Hematology WBC (3.8 - 9.8 K/MM3) 12.9 H RBC (3.95 - 5.67 M/MM3) 3.46 L Hgb (12.4 - 16.7 G/DL) 9.7 L Hct (35.9 - 49.5 %) 30.7 L MCV (81.7 - 96.1 fL) 89 MCH (27.6 - 33.2 pg) 28.0 MCHC (32.9 - 35.5 %) 31.6 L RDW (12.1 - 15.2 %) 15.9 H Plt Count (129 - 368 K/MM3) 173 MPV (7.4 - 10.4 fl) 11.6 H Neut % (Auto) (43 - 75 %) 75.0 Lymph % (Auto) (14 - 44 %) 13.0 L Geary % (Auto) (4 - 13 %) 10.2 Eos % (Auto) (0 - 6 %) 0.9 Baso % (Auto) (0 - 2 %) 0.4 Neut # (Auto) (2.0 - 7.6 K/mm3) 9.68 H Lymph # (Auto) (1.0 - 3.8 K/mm3) 1.67 Geary # (Auto) (0.1 - 0.8 K/mm3) 1.31 H Eos # (Auto) (0.0 - 0.2 K/mm3) 0.12 Baso # (Auto) (0.0 - 0.2 K/mm3) 0.05 Immature Gran % (0.0 - 2.0 %) 0.5 Nucleated RBC % (0 - 1.0 %) 0.0 Nucleated RBCs # (Man) (0.0 - 0.1 K/mm3) 0.00 Treatment Prophylaxis Treatment ProphylaxisOxygen: room airLines: arterial, CVC Diagnosis, Assessment Plan Free Text DxA P NotesFree text DxA P notes:Problem List/A P: 1. S/P carotid endarterectomy 76 y/o male with a hx of T2DM, HTN, paroxysmal A-fib, CAD s/p CABG in 2018 admitted after a right carotid endarterectomy perform by Dr. Patino on 12/18. - POD #1 - Doing well - Afebrile - Currently on ASA, Plavix, and Lipitor - No longer on Cardene drip - Likely discharge will be Tuesday, 12/21 2. Carotid stenosis, bilateral As above 3. Coronary artery disease 4. HTN (hypertension), benign Home meds continued 5. T2DM (type 2 diabetes mellitus) Home meds continued. ssi 6. Peripheral arterial disease DVT PPx: scd. PlavixDiet: Consistent Carb Diet Quality: Gen Med Crit Care VTE ProphylaxisVTE prophylaxis initiated: yes (Plavix) Current MedicationsCurrent medication review:I attest that the foregoing medication list in the medical record is true, accurate, and complete to the best of my knowledge. Advanced Care Plan 65 or OlderDiscussed with: patientDiscussion included: code status (full code) at 1726 RPT #:[id number] OF REPORTPRProgress fqxr8048-96-90U34:23:00Z.[id number] able for patient whosLADAREAZFSFSRS3837-83-40X08:26:39 [facility] 2021-12-20 15:17:00 [id number] SvyDnhmsvsBNW052d4pP1VQxH4jBC jBCOxECZQKYPd8f8K9ofbvhSsJw7921-08-43Q99:17:78364 0-[address] [address] PATIENT NAME: GERALDO JAY ADMIT DATE: 12/18/21ACCOUNT NO: [id number] ROOM NO: [facility] AGE: 76 REPORT TYPE: PROGRESS NOTE SEX: M ADMITTING PHYSICIAN:Guevara Patino MD ATTENDING PHYSICIAN:Guevara Patino MD DATE: 12/19/2021 CARDIAC SURGERY SERVICE Patient at bedside in the ICU. The patient currently is stable. The patient ismaking appropriate progress. LINA drain will be removed tomorrow. Neurologicallypatient is intact, walking. Dictated By: Guevara Patino MD Date Dictated: 12/20/2021 15:17:58Date Transcribed: 12/20/2021 16:23:21NAHOMY/Bala #: [id number] ID: [id number] by Guevara Patino MD On 01/19/2022 08:45:55 AM at 0845 PATIENT NAME: GERALDO JAY eiyu7308-42-48I06:23:00Z.[id number] ble for patient fwbdLGEHTUAXFADDFN9919-16-17I47:46:23 [facility] 2021-12-20 09:01:00 [id number] 2IR/CWg1FQz0vBHbNpD84uxLQ88Si qnAcY9AA5z83lh4FBpL9t8HwBhd8663-84-89N05:01:67566 0-0007 [place] [address] PATIENT NAME: GERALDO JAY ADMIT DATE: 12/18/21ACCOUNT NO: [id number] ROOM NO: Z.SI08 AGE: 76 REPORT TYPE: PROGRESS NOTE SEX: M ADMITTING PHYSICIAN:Guevara Patino MD ATTENDING PHYSICIAN:Guevara Patino MD DATE: 12/20/2021 REFERRING PHYSICIAN: Dr. Guevara Patino This note is dictated for Dr. Odilon Adkins. I am covering for him. HISTORY OF PRESENT ILLNESS: The patient is doing well. He still has an arterial line in post CEA. His blood pressure is very high, on nicardipine drip. OBJECTIVE:VITAL SIGNS: Stable. Exam is otherwise unremarkable. PLAN: We will start all home medications for blood pressure control and monitorhim, taper nicardipine drip as tolerated. Dictated By: Taurus Pickard MD Date Dictated: 12/20/2021 09:01:05Date Transcribed: 12/20/2021 09:24:43AA/ROVJob #: [id number] ID: [id number] by Taurus Pickard MD On 12/29/2021 07:42:02 AM at 0742 PATIENT NAME: GERALDO JAY qmdi5644-11-04K06:24:00Z.[id number] ble for patient imtxBPIPXCMGAYYWUJ3524-32-63T05:42:39 [facility] 2021-12-19 12:07:00 [id number] JbrRPjg1zhotI3i92IlXmdI7f7pV9 VMpvt4cSSH6Obe6N/ldnPWW/D6+6819-64-32O37:07:00 [facility]Hospital[facility] Progress NoteREPORT#:[id number] REPORT STATUS: SignedDATE:12/19/21 TIME: 120 PATIENT: GERALDO JAY UNIT #: [id number]#: [id number] [address]Q: [address] AGE: 76 SEX: M ATTEND: Guevara Patino AUTHOR: Elvis Adhikari DO R2 * ALL edits or amendments must be made on the electronic/computer document * Elvis Adhikari 12/19/21 1207:SubjectiveChief complaint:s/p Right carotid endarterectomyHPI:POD #1. No acute overnight events. No longer on Cardene drip. Denies fever, chills, chest pain, back pain, abdominal pain, leg pain, leg swelling, or dyspnea. He worked with PT earlier today and mentions that he did well. Review of SystemsConstitutional:Denies: chills, fatigue, fever, generalized weakness. Skin:Denies: itching. Allergy/Immun:Denies: itching, rhinorrhea. Eyes:Denies: redness, visual loss/blurred, eye pain. ENT:Denies: nasal congestion, sore throat. Respiratory:Denies: KANG (dyspnea on exertion), non productive cough, productive cough (sputum), SOB, wheezing. Cardiovascular:Denies: chest pain, KANG (dyspnea on exertion), edema, palpitations. GI:Denies: abdominal pain, constipation, diarrhea, nausea, vomiting. :Denies: dysuria, flank pain, frequency, hematuria. Musculoskeletal: Extremity pain: Denies: left upper, left lower, right upper, right lower. Extremity swelling: Denies: left upper, left lower, right upper, right lower. Neuro:Denies: dizziness, headache, lightheaded. All systems rev neg: except as marked Objective GeneralVS/I O:Vital Signs: Date Time Temp Pulse Resp B/P B/P Pulse O2 O2 Flow FiO2 Mean Ox Delivery Rate 12/19 1200 97.2 12/19 0800 97.2 12/19 0707 62 19 143/63 91 96 12/19 0645 60 16 97 12/19 0637 72 24 145/65 93 98 12/19 0630 59 26 99 12/19 0623 58 15 139/65 93 96 12/19 0615 59 16 99 12/19 0608 60 15 147/69 99 99 12/19 0600 62 17 100 12/19 0553 60 14 141/65 94 95 12/19 0545 59 13 95 12/19 0537 60 14 139/65 93 99 12/19 0530 60 14 100 12/19 0523 63 18 141/62 89 98 12/19 0515 61 17 99 12/19 0508 60 17 143/64 92 100 12/19 0500 60 14 98 12/19 0453 59 14 145/66 95 96 12/19 0445 59 14 99 12/19 0437 68 146/67 97 99 12/19 0430 59 15 99 12/19 0429 60 13 95 12/19 0423 60 14 147/67 96 97 12/19 0415 60 14 94 12/19 0408 59 14 143/65 94 95 12/19 0400 97.0 12/19 0400 Nasal 2 cannula 12/19 0400 59 15 100 12/19 0353 60 15 147/68 98 99 12/19 0345 62 13 100 12/19 0337 60 9 144/65 93 100 12/19 0330 62 19 100 12/19 0323 63 23 150/66 95 100 12/19 0315 68 35 100 12/19 0308 60 13 147/65 93 99 12/19 0300 59 14 99 12/19 0253 60 8 144/67 96 94 12/19 0245 59 9 97 12/19 0237 60 14 144/66 95 92 12/19 0230 60 16 95 12/19 0223 60 16 143/67 96 97 12/19 0215 61 15 97 12/19 0208 61 15 142/67 96 93 12/19 0200 60 11 100 12/19 0153 73 15 145/67 96 91 12/19 0145 61 16 92 12/19 0137 70 15 145/67 96 98 12/19 0130 61 15 90 12/19 0123 61 16 144/66 95 86 12/19 0115 63 22 95 12/19 0108 63 36 146/63 90 95 12/19 0100 62 18 95 12/19 0052 65 22 144/65 94 96 12/19 0045 64 27 96 12/19 0037 63 16 146/66 95 97 12/19 0030 65 95 12/19 0023 61 16 142/66 95 90 12/19 0015 62 16 90 12/19 0008 61 15 137/64 92 89 12/19 0000 97.4 12/19 0000 62 15 89 12/18 2352 63 16 140/65 94 90 12/18 2345 62 15 89 12/18 2339 77 17 92 12/18 2337 62 17 139/65 93 90 12/18 2330 62 15 89 12/18 2323 63 16 139/65 93 89 12/18 2315 65 19 93 12/18 2308 63 16 142/65 94 89 12/18 2300 64 15 91 12/18 2252 64 16 144/64 92 93 12/18 2245 65 17 93 12/18 2237 65 15 160/70 100 91 12/18 2230 66 16 90 12/18 2223 75 15 157/70 100 90 12/18 2215 65 16 91 10/28 2208 64 17 159/70 100 91 12/180 65 20 94 12/183 61 15 138/62 89 88 12/185 61 15 86 12/187 78 0 149/67 97 90 12/180 69 16 95 12/183 64 16 162/72 103 95 12/185 63 16 95 12/19 2107 68 15 168/69 99 93 12/18 2100 64 16 95 12/18 2052 64 16 154/70 100 95 12/18 2044 62 11 100 12/18 2036 63 15 146/68 98 99 12/18 2029 78 20 99 12/18 2022 71 16 151/67 96 99 12/18 2014 61 12 99 12/19 2007 62 21 161/69 99 100 12/19 1999 97.4 12/19 1999 63 25 99 12/18 1953 60 0 156/68 98 98 12/18 1945 60 10 95 12/18 1937 59 0 151/67 97 99 12/18 1930 60 0 99 12/18 1924 99 Nasal 4 36 cannula 12/18 1923 59 0 163/72 104 99 12/18 1915 61 9 100 12/18 1908 60 16 160/71 102 100 12/18 1900 62 21 100 12/18 1801 57 17 94 12/18 1800 57 16 95 12/18 1753 57 15 148/67 97 86 12/18 1745 57 15 85 12/18 1730 58 25 94 12/18 1715 57 22 98 12/18 1700 57 15 100 12/18 1615 54 97 12/18 1600 55 15 100 12/18 1545 56 11 99 12/18 1533 97.0 12/18 1533 64 100 12/18 1500 Nasal 5 cannula 24 hour I O ending at 0700: 12/19 0700 12/18 1900 Intake Total 2620.00 320.00 Output Total 953 440 Balance 1667.00 -120.00 Intake, IV 2220.00 320.00 Intake, Oral 400 Output, 38 10 Drainage Output, Urine 915 430 Patient 116.364 kg Weight Weight Standing scale Measurement Method PATIENT WEIGHT: Weight (lb): 256Weight (oz): 8.62Weight (kg): 116.364 Physical ExamGeneral appearance: alert, awake, oriented, pleasant, conversational, mental status normal, no respiratory distressHead/Eyes: atraumatic, EOMI, normal conjunctiva/sclera, normocephalicENT: moist mucosal membranes, normal dentitionNeck: full range of motion, supple/no meningismusCardiovascular: normal capillary refill, regular rate rhythmRespiratory: aerating well, symmetric expansion, no distressAbdomen: non-tender, normal bowel sounds, soft, no distentionExtremities: moves all, normal capillary refill, normal range of motion, no calftenderness, left foot bandagedMusculoskeletal: no CVA tenderness, no midline vertebral tend, no muscle spasm, no paraspinal tendernessNeuro/REWINDER: alert, oriented X 3, normal speechSkin: dry, CVC noted on the left subclavian area, Left radial a-line notedPsychiatry: normal affect, normal judgment/insight, normal mood ResultsFindings/Data:Laboratory Tests 12/18 1515 Blood Gas Puncture Site AL ABG pH (7.35 - 7.45 mmHg) 7.39 ABG pCO2 (35.0 - 45.0 mmHg) 38.9 ABG pO2 (80.0 - 100.0 mmol/L) 110.4 H ABG HCO3 (20.0 - 26.0 mmol/L) 22.8 ABG O2 Saturation (95.0 - 100.0 %) 98.0 ABG Base Excess (-3.0 - 3.0 mmol/L) -1.9 Ryley Test (CHECK) NA Temperature (37 C) 37.0 O2 Delivery Device SMASK Liter Flow (L/MIN) 9 FiO2 (%) 50 Laboratory Tests 12/19 12/19 12/19 12/18 12/18 1214 0712 0516 2048 1518 Chemistry Sodium (137 - 145 MMOL/L) 136 L 138 Potassium (3.5 - 5.1 MMOL/L) 4.9 4.7 Chloride (98 - 107 MMOL/L) 106 106 Carbon Dioxide (22 - 30 MMOL/L) 24 24 Anion Gap (14 - 24 MMOL/L) 11 L 13 L BUN (9 - 20 MG/DL) 26 H 25 H Creatinine (0.66 - 1.25 MG/DL) 1.20 1.20 Glomerular Filtr Rate 59 59 Glucose (74 - 106 MG/DL) 267 H 162 H POC Glucose (60 - 99 MG/DL) 295 H 275 H 272 H Calcium (8.4 - 10.2 MG/DL) 8.2 L 8.2 L Magnesium (1.6 - 2.3 MG/DL) 2.2 2.1 Laboratory Tests 12/19 12/18 0516 1518 Hematology WBC (3.8 - 9.8 K/MM3) 11.5 H 7.8 RBC (3.95 - 5.67 M/MM3) 3.74 L 3.60 L Hgb (12.4 - 16.7 G/DL) 10.6 L 10.1 L Hct (35.9 - 49.5 %) 32.7 L 31.2 L MCV (81.7 - 96.1 fL) 87 87 MCH (27.6 - 33.2 pg) 28.3 28.1 MCHC (32.9 - 35.5 %) 32.4 L 32.4 L RDW (12.1 - 15.2 %) 15.7 H 15.7 H Plt Count (129 - 368 K/MM3) 174 167 MPV (7.4 - 10.4 fl) 11.3 H 11.4 H Neut % (Auto) (43 - 75 %) 78.5 H 64.4 Lymph % (Auto) (14 - 44 %) 13.5 L 20.6 Geary % (Auto) (4 - 13 %) 7.3 7.6 Eos % (Auto) (0 - 6 %) 0.1 5.9 Baso % (Auto) (0 - 2 %) 0.2 0.9 Neut # (Auto) (2.0 - 7.6 K/mm3) 8.99 H 5.02 Lymph # (Auto) (1.0 - 3.8 K/mm3) 1.55 1.61 Geary # (Auto) (0.1 - 0.8 K/mm3) 0.84 H 0.59 Eos # (Auto) (0.0 - 0.2 K/mm3) 0.01 0.46 H Baso # (Auto) (0.0 - 0.2 K/mm3) 0.02 0.07 Immature Gran % (0.0 - 2.0 %) 0.4 0.6 Nucleated RBC % (0 - 1.0 %) 0.0 0.0 Nucleated RBCs # (Man) (0.0 - 0.1 K/mm3) 0.00 0.00 Radiology data:Recent Impressions:RADIOLOGY - XR CHEST 1V 12/18 1540 Report Impression - Status: SIGNED Entered: 12/18/2021 1615 IMPRESSION:1. New left subclavian catheter without pneumothorax.Impression By: Hector Downey MDRADIOLOGY - XR CHEST 1V 12/19 0555 Report Impression - Status: SIGNED Entered: 12/19/2021 0812 IMPRESSION:1. Stable chestImpression By: Hector Downey MD Treatment Prophylaxis Treatment ProphylaxisOxygen: room airLines: arterial, CVCCVC/PICC documentation:CVC/PICC insertion date/time: CVC multi lumen double Subclavian Left Inserted 12/18/21 1312 Diagnosis, Assessment PlanProblem List/A P: 1. S/P carotid endarterectomy 76 y/o male with a hx of T2DM, HTN, paroxysmal A-fib, CAD s/p CABG in 2018 admitted after a right carotid endarterectomy perform by Dr. Patino on 12/18. - POD #1 - Doing well - Afebrile - Currently on ASA, Plavix, and Lipitor - No longer on Cardene drip - Likely discharge will be Tuesday, 12/21 2. Carotid stenosis, bilateral As above 3. Coronary artery disease 4. HTN (hypertension), benign Home meds continued 5. T2DM (type 2 diabetes mellitus) Home meds continued 6. Peripheral arterial disease Free Text DxA P NotesFree text DxA P notes:DVT PPx: PlavixDiet: Consistent Carb Diet Quality: Gen Med Crit Care VTE ProphylaxisVTE prophylaxis initiated: yes (Plavix) Current MedicationsCurrent medication review:I attest that the foregoing medication list in the medical record is true, accurate, and complete to the best of my knowledge. Advanced Care Plan 65 or OlderDiscussed with: patientDiscussion included: code status (full code) AttestationsAttestation needed: supervising physician Saurabh Obando 12/19/21 3964:Attestations Teaching Physician AttestationF/U visit w/ resident:I saw the patient with the resident and . . . agree with the resident's findings and plan. CONT SSI. [id number] ASA/PLAVIX/LIPITORSCD at 1422 at 1726 RPT #:[id number] OF REPORTPRProgress ujcm2180-58-19Q38:07:00Z.[id number] able for patient cimrXYUXMMCBTYIBLG1480-34-62S37:22:27 [facility] 05:57:00 [id number] HfcsddWy0SjS1nCjpkh1yOgJABt8a MszZxQRG5rCsmwU1A1XFhooH+f35207-91-44P94:57:89983 9-[address] [place] [address] PATIENT NAME: GERALDO JAY ADMIT DATE: 12/18/21ACCOUNT NO: [id number] ROOM NO: Z.SI08 AGE: 76 REPORT TYPE: ELECTROCARDIOGRAM SEX: M ADMITTING PHYSICIAN:Guevara Patino MD ATTENDING PHYSICIAN:Guevara Patino MD Order:[id number] Reason : CAD Test Date/Time Stamp:TueDec 19 2021 05:57:57Blood Pressure : / mmHGVent. Rate : 062 BPM Atrial Rate : 062 BPM P-R Int : 312 ms QRS Dur : 152 ms QT Int : 492 ms P-R-T Axes : 089 -06 021 degrees QTc Int : 499 ms Sinus rhythm with 1st degree AV blockRight bundle branch blockAbnormal ECGWhen compared with ECG of 18-DEC-2021 16:01,No significant change was foundConfirmed by DENISA HARRINGTON ([id number]) on 12/19/2021 6:57:57 AM Referred By: Guevara Patino Confirmed by:DENISA HARRINGTON at 0657 PATIENT NAME: GERALDO JAY .[id number] AVAvailable for patient oenkARFDNGBQUURMWY4257-63-87M16:58:23 [facility] 2021-12-18 21:15:00 [id number] vAMFepkmCKpb21wRybtleqasK+tNi T/DaYLMRP9WGHIejLSO3doVhZU23560-13-81U90:15:43705 8-0118 [place] [address] PATIENT NAME: GERALDO JAY ADMIT DATE: 12/18/21ACCOUNT NO: [id number] ROOM NO: Z.SI08 AGE: 76 REPORT TYPE: OPERATIVE REPORT SEX: M ADMITTING PHYSICIAN:Guevara Patino MD ATTENDING PHYSICIAN:Guevara Patino MD OPERATION DATE: 12/18/2021 CARDIAC SURGERY SERVICE PREOPERATIVE DIAGNOSIS: Right internal carotid stenosis, hypertension, hyperlipidemia, diabetes, coronary artery disease. POSTOPERATIVE DIAGNOSIS: Right internal carotid stenosis, hypertension, hyperlipidemia, diabetes, coronary artery disease. PROCEDURE: Left CVP insertion, ultrasound-guided access with SonoSite of the left subclavian vein, right carotid endarterectomy and Hemashield patch arterioplasty. SURGEON: Guevara Patino MD [employer] TECHNICIAN: Catherine Pratt PA-C ANESTHESIA: General. COMPLICATIONS: None. DISPOSITION: The patient to surgical ICU in stable condition. INDICATIONS FOR SURGERY: This is a 76-year-old patient with a high-grade stenosis, right internal carotid artery, now with 80-90% on duplex imaging and also on arteriogram with carotid arteriography. The patient is now referred forright carotid endarterectomy. PROCEDURE IN DETAIL: On 12/18/2021, the patient was brought to the operating room and placed on the operating table in supine position, prepped and draped inthe usual fashion following introduction of satisfactory general anesthesia, placement of appropriate monitoring line, Iverson catheter, hip, shoulder and elbow were padded in the usual fashion. Right subclavian CVP was placed. UsingKandy percutaneous guidewire technique, ultrasound-guided access with SonoSite left subclavian vein. Using ultrasound-guided access with SonoSite, left subclavian CVP. The patient was then prepped and draped in the usual fashion. Neck extended to the left 45-degree angle. Incision was made along the anterior border of the sternocleidomastoid muscle. Carotid sheath and the vessels was placed around the carotid arterial branches. The patient now was heparinized. Clamps were placed. The arteriotomy of the common carotids were very tight over 80% stenosis of the internal carotid artery, extended beyond PATIENT NAME: GERALDO JAY this into the internal carotid artery. We irrigated with heparin saline solution. The shunt was placed. The endarterectomy performed and the plaque feathered out nicely and then we irrigated with heparin saline solution again. Hemashield patch arterioplasty closure and running 5-0 Prolene suture was done prior to patch closure completion, the shunt was removed. All branches allowed to backbleed to flush air, debris, patch closure complete. Clamp was released. Excellent pulse by palpation and Doppler throughout. The wounds were irrigated with antibiotic saline solution and protamine given, hemostasis was achieved. AJackson-Rivera drain was placed. The wound was closed in layers in usual fashion. Dressing applied. The patient was intact neurologically after emergedfrom anesthesia and taken to the surgical ICU in stable condition. Dictated By: Guevara Patino MD Date Dictated: 12/18/2021 21:15:43Date Transcribed: 12/18/2021 21:51:33DonnyLM/ABHJob #: [id number] ID: [id number] CC:Denisa Harrington MDAuthenticated by Guevara Patino MD On 01/19/2022 08:45:54 AM at 0845 PATIENT NAME: GERALDO JAY uuksjt9811-04-10T04:51:00Z.[id number] lable for patient dqlbIZYKLFHNQDWUKO2846-86-98X38:46:23 [facility] 2021-12-18 18:46:00 [id number] FdHyWD4Kl0ttmNeb3motyNA4PxQ6o AZF2jZcXkM737GiemyqjBe84X082229-38-79Y17:46:00 [facility] ([facility])Hospitalist History PhysicalREPORT#:[id number] REPORT STATUS: SignedDATE:12/18/21 TIME: 1845 PATIENT: GERALDO JAY UNIT #: [id number]#: [id number] [address]: [address] AGE: 76 SEX: M ATTEND: Guevara Patino MDA AUTHOR: Fernie Carpenter MD R1 * ALL edits or amendments must be made on the electronic/computer document * Fernie Carpenter 12/18/211845:History of Present Illness HPIChief complaint:s/p Right carotid endarterectomy PCP:PCP: Odilon Adkins MD HPI:This is a 76 y/o M patient with a history of - Atherosclerotic cardiovascular disease [managed with a circumflex stent in 1996]- Left main and double-vessel coronary artery disease [double vessel bypass on 09/12/2007]- Extensive peripheral arterial disease [left femoral-popliteal bypass on 06/28/2014 and 06/26/2012]- Ulceration and healing wounds on L heel. - Paroxysmal atrial fibrillation in remission - Diabetes mellitus Pt underwent Right carotid endarterectomy with hemashield patch arterioplasty due to R internal carotid artery stenosis on 12/18/[address] Sukumar. Carotid doppler on 09/08/2021 revealed RCA to be 80%-99% stenotic, and LCA to be51%-69% stenotic, which had progressed compared to previous evaluation. Pt is living with his . He has home health visits 2 times per week to assistwith ADLs Pt denies chest pain, sob, fever, chill, headache, abdominal painPt admits sore throat, trouble walking Pt is currently on nicardipine drip History Past Medical Surgical HxAdditional surgical history:femoral artery bypass, left foot toes amputation Social HistoryAlcohol use: Denies EtOH useDrug use: Denies recreational drugsSmoking status for patients 13 years old or older: Former Smoker Medication/Allergy-Vaccine HxAllergies:Coded Allergies:No Known Allergies (09/17/14) Review of SystemsConstitutional:Reports: recent wt loss (lost 24 lb). Denies: chills, fatigue, fever, generalized weakness. Allergy/Immun:Denies: allergic reaction, anaphylaxis, hives, itching, rhinorrhea, sneezing, other. Eyes:Denies: redness, discharge, visual loss/blurred, itching, diplopia, eye pain, photophobia, swelling, other. ENT:Denies: ear drainage, ear ringing, earache, hearing loss, mouth pain, nasal congestion, nose bleeding, sinus problem, sore throat, throat pain, throat swelling, tongue pain, tongue swelling, toothache, voice change, other. Respiratory:Denies: KANG (dyspnea on exertion), hemoptysis, non productive cough, parox nocturnal dyspnea, pleurisy, pleuritic pain, pneumonia, productive cough (sputum), SOB, wheezing, other. Cardiovascular:Denies: chest pain, KANG (dyspnea on exertion), edema, orthopnea, palpitations, parox nocturnal dyspnea, other. GI:Reports: constipation. Denies: abdominal pain, diarrhea, vomiting. :Denies: dysuria, flank pain, frequency, hematuria, nocturia, penile discharge, penile lesion, testicular pain, testicular swelling, urgency, urinary retention,other. Musculoskeletal:Denies: arthritis, extremity pain, extremity swelling, joint pain, joint swelling, lumbar pain, myalgias, neck pain, thoracic pain, other. Endocrine:Denies: cold intolerance, heat intolerance, polydipsia, polyphagia, polyuria, weight gain, weight loss, other. Neuro:Denies: bladder dysfunction, bowel dysfunction, change in LOC, confusion, dizziness, focal weakness, gait problem, headache, lightheaded, numbness, seizure, slurred speech, spinning sensation, syncope, unable to speak, vision change, weakness, other. Psych:Denies: agitation, anxiety, auditory hallucination, change in mental status, confusion, delusional, depression, homicidal ideation, hostile, insomnia, stress, suicidal ideation, visual hallucination, other. Physical ExamVS/I O:Vital Signs Date Temp Pulse Resp B/P B/P Mean Pulse Ox FiO2 12/18 36.1 54-64 11- 148-166/67-72 97 85-100 36 Last Documented: Result Date Time Pulse Ox 99 12/19 1923 FiO2 36 12/19 1923 O2 Delivery Nasal cannula 12/19 1923 O2 Flow Rate 4 12/19 1923 Pulse 57 12/18 1800 Resp 17 12/18 180 B/P 148/67 12/18 1752 B/P Mean 97 12/18 1752 Temp 36.1 12/18 1533 24 hour I O ending at 0700: 12/18 0700 12/17 190 Intake Total Output Total Balance Patient 113.636 kg Weight Weight Stated/Reported Measurement Method Patient Weight and BMI Weight (kg): 116.364 BMI: 30.4 General appearance: alert, awake, orientedHead/Eyes: atraumatic, clear cornea, EOMIENT: moist mucosal membranes, normal dentition, normal ear left, normal ear right, normal noseNeck: full range of motion, non-tender, normal thyroid, supple/no meningismus, no bruit/NL carotids, no JVD, no masses or swellingBreast: symmetrical, no discharge, no mass, no tendernessCardiovascular: normal capillary refill, normal heart sounds, regular rate rhythm, no ectopy, no gallop, no heaveRespiratory: aerating well, clear to auscultation, symmetric expansion, no distressAbdomen: non-tender, normal bowel sounds, soft, no distentionGenitourinary: cremast. reflex pres mason, norm. external inspection, norm. prostate inspection, no bladder distention, no flank pain, no urinary catheter, no testicular tendernessExtremities: moves all, normal capillary refill, normal range of motion, no calftenderness, no clubbingMusculoskeletal: normal inspection, painless range of motion, straight leg raiseneg, no CVA tenderness, no midline vertebral tendNeuro/REWINDER: alert, oriented X 3, CNII-XII intact, normal speechSkin: dry, intact, normal color, normal temperature, no rashUlcer: Type/cause: pressure (L heel ) ResultsFindings/Data:Laboratory Tests: 12/18 12/18 12/18 1518 1515 0912 Blood Gas Puncture Site AL ABG pH (7.35 - 7.45 mmHg) 7.39 ABG pCO2 (35.0 - 45.0 mmHg) 38.9 ABG pO2 (80.0 - 100.0 mmol/L) 110.4 H ABG HCO3 (20.0 - 26.0 mmol/L) 22.8 ABG O2 Saturation (95.0 - 100.0 %) 98.0 ABG Base Excess (-3.0 - 3.0 mmol/L) -1.9 Ryley Test (CHECK) NA Temperature (37 C) 37.0 O2 Delivery Device SMASK Liter Flow (L/MIN) 9 FiO2 (%) 50 Chemistry Sodium (137 - 145 MMOL/L) 138 Potassium (3.5 - 5.1 MMOL/L) 4.7 Chloride (98 - 107 MMOL/L) 106 Carbon Dioxide (22 - 30 MMOL/L) 24 Anion Gap (14 - 24 MMOL/L) 13 L BUN (9 - 20 MG/DL) 25 H Creatinine (0.66 - 1.25 MG/DL) 1.20 Glomerular Filtr Rate 59 Glucose (74 - 106 MG/DL) 162 H POC Glucose (60 - 99 MG/DL) 211 H Calcium (8.4 - 10.2 MG/DL) 8.2 L Magnesium (1.6 - 2.3 MG/DL) 2.1 Hematology WBC (3.8 - 9.8 K/MM3) 7.8 RBC (3.95 - 5.67 M/MM3) 3.60 L Hgb (12.4 - 16.7 G/DL) 10.1 L Hct (35.9 - 49.5 %) 31.2 L MCV (81.7 - 96.1 fL) 87 MCH (27.6 - 33.2 pg) 28.1 MCHC (32.9 - 35.5 %) 32.4 L RDW (12.1 - 15.2 %) 15.7 H Plt Count (129 - 368 K/MM3) 167 MPV (7.4 - 10.4 fl) 11.4 H Neut % (Auto) (43 - 75 %) 64.4 Lymph % (Auto) (14 - 44 %) 20.6 Geary % (Auto) (4 - 13 %) 7.6 Eos % (Auto) (0 - 6 %) 5.9 Baso % (Auto) (0 - 2 %) 0.9 Neut # (Auto) (2.0 - 7.6 K/mm3) 5.02 Lymph # (Auto) (1.0 - 3.8 K/mm3) 1.61 Geary # (Auto) (0.1 - 0.8 K/mm3) 0.59 Eos # (Auto) (0.0 - 0.2 K/mm3) 0.46 H Baso # (Auto) (0.0 - 0.2 K/mm3) 0.07 Immature Gran % (0.0 - 2.0 %) 0.6 Nucleated RBC % (0 - 1.0 %) 0.0 Nucleated RBCs # (Man) (0.0 - 0.1 K/mm3) 0.00 Laboratory Tests 12/18/21 1518:[Embedded Image Not Available] Radiology data:Recent Impressions:RADIOLOGY - XR CHEST 1V 12/18 1540 Report Impression - Status: SIGNED Entered: 12/18/2021 9235 IMPRESSION:1. New left subclavian catheter without pneumothorax.Impression By: [email or web address] - Pedrito Downey MD Diagnosis, Assessment PlanFree Text A P:Assessment and plan#Severe carotid stenosis b/l (R>L)::s/p Right carotid endarterectomy#Coronary artery disease::Prevention of coronary stent thrombosis- Aspirin PO 81 mg daily- Clopidogrel (Plavix) PO 75 mg daily - Atorvastatin PO 80 mg bedtime #Diabetes mellitus - Insulin lispro medium dose sliding scale- Linagliptin (tradjenta) PO 5 mg daily- glucose monitoring #htn- Hydrochlorothiazide PO 12.5 mg daily - lisinopril PO 20 mg BID- Carvedilol PO 25 mg BID#Peripheral arterial disease # Paroxysmal atrial fibrillation- Currently asymptomatic- Amiodarone PO 200 mg bedtime ICU Patient Safety Checklist: - Diet: clear liquid diet - Bowel regimen: tbd - Accuchecks Q: glucose q2hr - Antibiotics: cefazolin (ancef) IV 1 gm q8hr [0 of 2 doses given]- Ulcer prophylaxis (discontinue if on diet): famotidine IV 20 mg q12hr- DVT prophylaxis: tbd - Iverson: yes - Lines: L radial artery [inserted on 12/18/21], CVC multi lumen double subclavian left [inserted 12/18/21], venous L forearm anterior [inserted 12/18/21]- Wounds or pressure ulcer present on admission: L heel - Next of kin: tbd- Code status: full - Disposition: ICU Saurabh Obando 12/19/21 0005:History Family HistoryFamily history:Denies: Abdominal aortic aneurysm, Anemia, Asthma, CAD < 40 yrs old, Cancer, Coagulopathy, Dementia/Alzheimer's dis, Depression/mood disorder, Diabetes, Heart disease, Hypertension, Kidney disease/stones, Seizure disorder, Stroke/TIA, Subarachnoid hemorrhage, Sudden cardiac , Thyroid disorder, , Connective tissue dis, Gallbladder disease, Hyperlipidemia, Neurofibromatosis, Sickle cell disease. Quality: Gen Med Crit Care VTE ProphylaxisVTE prophylaxis initiated: yes Current MedicationsCurrent medication review:I attest that the foregoing medication list in the medical record is true, accurate, and complete to the best of my knowledge. Advanced Care Plan 65 or OlderDiscussed with: patientDiscussion included: code status (full code) Attestations Teaching Physician Zvspgovipwh1zj visit w/ resident:I was present with the resident during the history and exam. I discussed the case with the resident and . . . agree with the findings and plan as documented in the resident's note. at 0550 at 1723 RPT #:[id number] OF REPORTHPHistory and physical zxredcndzol7526-42-64M36:46:00Z.ZYJV02528344-7008 AVAvailable for patient hslqRIPVOEGVIDNTXV9931-13-32G36:50:50 [facility] 2021-12-18 18:34:00 [id number] JQPoaRvH3l/QTqIicwcGz7VG8LXEk N1ZTwJvia5UfevIoNJGFHAINlYR3598-08-53U50:34:00 [facility] ([facility])Brief Op NoteREPORT#:[id number] REPORT STATUS: SignedDATE:12/18/21 TIME: 1834 PATIENT: GERALDO JAY UNIT #: [id number]#: [id number] [address] AGE: 76 SEX: M ATTEND: Guevara Patino AUTHOR: Catherine Pratt * ALL edits or amendments must be made on the electronic/computer document * Op/Inv Proc Note - BriefORM Surgeries: Surgery Date and Time: 12/18/2021 1020 Primary Procedure: CAROTID ENDARTERECTOMY Pre-procedure diagnosis:Right internal carotid artery stenosis Post-procedure diagnosis: same as pre procedure dxProcedures performed:Right carotid endarterectomy with hemashield patch arterioplastyInsertion of left subclavian central line using sonosite US guidancePrimary Surgeon:Guevara Caseytant(s): VINAY Mehta-CAnesthesiologist:Dr. Homer Larson Anesthesia: general anesthesiaFindings:See detailed op reportComplications: noneEstimated blood loss in ml's: 75ccSpecimens removed/altered: right carotid plaqueDrain(s): Iverson Catheter PlacedApproach: openWound class: cleanDisposition: ICU, stable at 1837 at 1530 [facility] #:[id number] OF REPORTOPOperative bhqpuy3026-04-66M38:34:00Z.[id number] ilable for patient ymmfVDEOFEVKWNVZNH5480-47-48U67:37:38 [facility] 2021-12-18 16:01:00 [id number] 2yE11aXj73OpQXVjRgVHv6NJIgPqs qsibynIHGAGxxfLNfbhkz3EbySq5123-96-92N31:01:08000 8-[address] [place] [address] PATIENT NAME: GERALDO JAY ADMIT DATE: 12/18/21ACCOUNT NO: [id number] ROOM NO: Z.SI08 AGE: 76 REPORT TYPE: ELECTROCARDIOGRAM SEX: M ADMITTING PHYSICIAN:Guevara Patino MD ATTENDING PHYSICIAN:Guevara Patino MD Order:[id number] Reason : post op surgery Test Date/Time Stamp:TueDec 18 2021 16:01:33Blood Pressure : / mmHGVent. Rate : 056 BPM Atrial Rate : 056 BPM P-R Int : 324 ms QRS Dur : 148 ms QT Int : 504 ms P-R-T Axes : 085 025 041 degrees QTc Int : 486 ms Sinus bradycardia with 1st degree AV blockRight bundle branch blockAbnormal ECGNo significant change was foundConfirmed by DENISA HARRINGTON ([id number]) on 12/18/2021 4:25:36 PM Referred By: Guevara Patino Confirmed by:DENISA HARRINGTON at 1625 PATIENT NAME: GERALDO JAY .[id number] AVAvailable for patient pagrVOYIIWVMWFTXSW0909-13-29W05:25:57 [facility] 2021-12-17 17:06:00 [id number] PQtW/7tHJP1Hra8SwLnZFtkjvare9 ZSREu2a7nn5uLTn6fsAArfq1bn69436-41-26G76:06:28265 [address] [place] [address] PATIENT NAME: GERALDO JAY ADMIT DATE: ACCOUNT NO: [id number] ROOM NO: AGE: 76 REPORT TYPE: ELECTROCARDIOGRAM SEX: M ADMITTING PHYSICIAN:Guevara Patino MD ATTENDING PHYSICIAN:Guevara Patino MD Order:[id number] Reason : PREOP Test Date/Time Stamp:TueDec 17 2021 17:06:42Blood Pressure : / mmHGVent. Rate : 055 BPM Atrial Rate : 055 BPM P-R Int : 294 ms QRS Dur : 144 ms QT Int : 494 ms P-R-T Axes : 065 007 027 degrees QTc Int : 472 ms Sinus bradycardia with 1st degree AV blockRight bundle branch blockAbnormal ECGWhen compared with ECG of 12-DEC-2021 06:39,No significant change was foundConfirmed by DENISA HARRINGTON ([id number]) on 12/17/2021 5:55:54 PM Referred By: Guevara Patino Confirmed by:DENISA HARRINGTON at 1755 PATIENT NAME: GERALDO JAY .[id number] AVAvailable for patient xnjbDNKAJEQRTIBFGZ8197-71-91P90:56:09 [facility] 2021-12-12 17:29:00 [id number] ht0eajV65rHsxDIYV4smImi0+6EqQ VcmHxAioqELMHeiHf6phmozR2K04504-12-53Q18:29:80045 2-[address] [place] [address] PATIENT NAME: GERALDO JAY ADMIT DATE: 12/12/21ACCOUNT NO: [id number] ROOM NO: AGE: 76 REPORT TYPE: CONSULTATION REPORT SEX: M ADMITTING PHYSICIAN: ATTENDING PHYSICIAN:Denisa Harrington MD Cardiology CONSULTATION DATE: 12/12/2021 The patient was seen at bedside in the post-cath recovery area. CHIEF COMPLAINT: Right carotid stenosis. DIAGNOSES: Right internal carotid artery stenosis, left internal carotid arterystenosis, hypertension, hyperlipidemia, diabetes, status post coronary artery bypass for heart surgery. BRIEF HISTORY: This is a 76-year-old patient who has been followed for some time for carotid stenosis, getting progressively worse, 90%-99% on carotid Doppler, left side 51%-69%, right side 80% to 99%. Cardiac catheterization shows post left fem-pop bypass in June 2014 and June 2012, had previous double bypass surgery in 2007. He has a nuclear stress in 2019 with known scar, ejection fraction of 47% with no ischemia. The patient has a history of paroxysmal atrial fibrillation as well. He has an ascending aorta about 4.0 cm, stable. PAST MEDICAL HISTORY: Positive for diabetes, hypertension, hyperlipidemia. MEDICATIONS: The patient is currently on aspirin and Xarelto 15 mg daily. REVIEW OF SYSTEMS: Otherwise is negative. PHYSICAL EXAMINATION:GENERAL: Demonstrates a well-nourished male, no apparent distress. No carotid bruits. Carotid pulse present. Radial pulse present.CHEST: Clear.HEART: Regular rate and rhythm.ABDOMEN: Soft, nontender, without mass. Peripheral femoral pulses present. Popliteal pedal pulse absent.BREASTS AND RECTAL: Not done.NEUROLOGIC: Physiological. IMPRESSION: High-grade right internal carotid artery stenosis. PLAN: For right carotid endarterectomy. The procedure, alternatives, possible risks and complications including the inherent and other risks of surgery are explained to the patient and family, they understood, accepted, and wanted to proceed. They had a chance to ask questions and wanted to proceed. PATIENT NAME: ALTON JAYManny BERRIOS Dictated By: Guevara Patino MD Date Dictated: 12/12/2021 17:29:38Date Transcribed: 12/12/2021 22:30:44NAHOMY/Liz #: [id number] ID: [id number] by Guevara Patino MD On 12/28/2021 02:05:16 PM at 0205 PATIENT NAME: GERALDO JAY [facility] [id number] for patient vzawBOJSQQZFJPSEFY6652-12-89Q13:06:03 [facility] 2021-12-12 08:56:00 [id number] MySwO7cimy7PUW5paNNeTKW5sy5+B gy64tPZ3gFd/lvhzT+kE9jd1WKy4208-05-03M14:56:04285 2[address] [place] [address] PATIENT NAME: GERALDO JAY ADMIT DATE: 12/12/21ACCOUNT NO: [id number] ROOM NO: AGE: 76 REPORT TYPE: CARDIAC CATHETERIZATION REPORT SEX: M ADMITTING PHYSICIAN: ATTENDING PHYSICIAN:Denisa Harrington MD Cardiology PROCEDURE DATE: 12/12/2021 PUBLIC AREA SUPERVISOR: MD Juany TITLE OF PROCEDURES: Left heart catheterization, grafts CASTANO, selective carotidangiograms. INDICATION FOR PROCEDURE: Dyspnea, CAD, carotid disease, peripheral arterial disease. ESTIMATED BLOOD LOSS: Minimal. COMPLICATIONS: None. CONTRAST: 80 mL ANESTHESIA: Conscious sedation with Versed and fentanyl. 1% lidocaine for local anesthesia. FINAL DIAGNOSES: Left main and 2-vessel coronary artery disease, patent grafts with CASTANO to the LAD and vein graft to the obtuse marginal #2, normal ejection fraction 50-55%. The right internal carotid was 90%, left internal carotid was 65%. He has a lesion at the right common femoral at 90%. The recommendation isright carotid surgery. PROCEDURE IN DETAIL: After informed consent, the patient was brought to the cardiac catheterization lab in a stable fasting nonsedated state. He was prepped and draped in the usual sterile fashion. After conscious sedation, 1% lidocaine was administered to the right common femoral artery area for local anesthesia. A 6-Chilean sheath was placed in the right common femoral artery using standard techniques and fluoroscopy, the femoral artery was heavily calcified. After heparinization and the use of the Storq wire given his peripheral arterial disease, left heart catheterization was carried out. The left main was 90%. He has calcified arteries. The LAD has competitive flow andthe circumflex has competitive flow and there is a lesion in the mid LAD around 90% and in the proximal obtuse marginal around 80%. Right coronary angiogram showed 45% proximal to mid lesion and 40% mid to distal lesion, it is a dominantvessel, 35% plaque in the PDA was noted. The vein graft to the obtuse marginal was patent. It was going to OM 2, the CASTANO to the LAD was patent, but the distal LAD was very small apical diffusely diseased vessel. Left ventricular angiogram showed ejection fraction of 50-55%. Left ventricular end-diastolic pressure of 16 and no wall motion abnormalities or aortic valve gradient. The PATIENT NAME: GERALDO JAY right carotid selective angiogram showed 90% lesion in the origin of the internal, the left was 65% in the origin of the internal. A selective shot of the right groin showed a 90% lesion distal to the sheath insertion right before the bifurcation. The right groin was sealed using Perclose. There were no complications. The patient tolerated the procedure well. He was transferred back to the holding area for observation and he will get a surgical consultationfor his carotids and he will be discharged today on medical therapy and risk factor modification. Dictated By: Denisa Harrington MD Date Dictated: 12/12/2021 08:56:58Date Transcribed: 12/12/2021 09:17:35SD/ROVJob #: [id number] ID: [id number] by Denisa Harrington MD On 12/12/2021 10:57:53 AM at 1057 PATIENT NAME: GERALDO JAY phrt9183-77-64G80:17:00Z.NMW76187070-1468OGVygysm ble for patient hapsEIEQTNPDUQYLFV3438-32-88P14:58:30 [facility] 2021-12-12 06:39:00 [id number] AumeNtqgR7WM68ZghzuQn+03cXesL r61znK0hC0QOdbPr8LPpvPnziIA6169-41-82E54:39:28446 2-0003 [place] [address] PATIENT NAME: GERALDO JAY ADMIT DATE: 12/12/21ACCOUNT NO: [id number] ROOM NO: AGE: 76 REPORT TYPE: ELECTROCARDIOGRAM SEX: M ADMITTING PHYSICIAN: ATTENDING PHYSICIAN:Denisa Harrington MD Cardiology Order:[id number] Reason : PRE-OP Test Date/Time Stamp:Sat Dec 12 2021 06:39:35Blood Pressure : / mmHGVent. Rate : 058 BPM Atrial Rate : 058 BPM P-R Int : 296 ms QRS Dur : 144 ms QT Int : 470 ms P-R-T Axes : 089 013 037 degrees QTc Int : 461 ms Sinus bradycardia with 1st degree AV blockRight bundle branch blockAbnormal ECGWhen compared with ECG of 17-SEP-2014 01:16,Electronic demand pacing is no longer presentfusion complexes are no longer presentpremature ventricular complexes are no longer presentRight bundle branch block is now presentConfirmed by DENISA HARRINGTON ([id number]) on 12/12/2021 8:11:53 AM Referred By: Self Referred Confirmed by:DENISA HARRINGTON at 0811 PATIENT NAME: GERALDO JAY .[id number] AVAvailable for patient bjbnLSSBPFCLKWRRIX6900-71-26B91:13:12 [facility] 2021-12-12 06:39:00 [id number] 2wFibCLn5yzla6iIJVMr37ytMIQ0B aKW2AYapIKsckfpRFwkfNObhPpN3315-12-32I88:39:82955 4-[address] [address] PATIENT NAME: GERALDO JAY ADMIT DATE: 12/12/21ACCOUNT NO: [id number] ROOM NO: AGE: 76 REPORT TYPE: ELECTROCARDIOGRAM SEX: M ADMITTING PHYSICIAN: ATTENDING PHYSICIAN:Denisa Harrington MD Cardiology Order:[id number] Reason : PRE-OP Test Date/Time Stamp:Sat Dec 12 2021 06:39:35Blood Pressure : / mmHGVent. Rate : 058 BPM Atrial Rate : 058 BPM P-R Int : 296 ms QRS Dur : 144 ms QT Int : 470 ms P-R-T Axes : 089 013 037 degrees QTc Int : 461 ms Sinus bradycardia with 1st degree AV blockRight bundle branch blockAbnormal ECGWhen compared with ECG of 17-SEP-2014 01:16,Electronic demand pacing is no longer presentfusion complexes are no longer presentpremature ventricular complexes are no longer presentRight bundle branch block is now presentConfirmed by DENISA HARRINGTON ([id number]) on 12/14/2021 12:25:08 PM Referred By: Self Referred Confirmed by:DENISA HARRINGTON at 1225 PATIENT NAME: GERALDO JAY .[id number] AVAvailable for patient ymvlNQYWQZQDXUMVEZ8904-76-03B13:25:54 [facility] 2021-12-11 07:38:00 [id number]/sD wur5OuFaUlX4diLkbbHcho95Fgi8y 5GYgsc/T2eukBmAhWA5fbeFw3ke8405-40-29N38:38:23867 1[address]0032 [place] [address] PATIENT NAME: GERALDO JAY ADMIT DATE: ACCOUNT NO: [id number] ROOM NO: AGE: 76 REPORT TYPE: HISTORY AND PHYSICAL SEX: M ADMITTING PHYSICIAN: ATTENDING PHYSICIAN:Denisa Harrington MD Cardiology PATIENT NAME: GERALDO JAY ADMIT DATE:12/12/2021DMISSION DATE: 12/12/2021 06:00:00 ADMISSION HISTORY AND PHYSICAL PUBLIC AREA SUPERVISOR: Denisa Harrington MD REASON FOR ADMISSION: Cardiac and carotid angiograms to assess for possiblerevascularization in a patient with extensive atherosclerotic cardiovasculardisease. HISTORY OF PRESENT ILLNESS: Geraldo is a 76-year-old patient with knownatherosclerotic cardiovascular disease, who had a circumflex stent back in 1996. He had a double vessel bypass on 09/12/2007 for left main and double-vesselcoronary artery disease. The patient has had also extensive peripheral arterialdisease history with left fem-pop bypass on 06/28/2014 and 06/26/2012. Thepatient is still getting treatment for ulcerations and healing wounds on hislower extremities. The patient had a recent cardiovascular evaluation with acarotid Doppler on 09/08/2021 that showed the right carotid to be 80%-99% andthe left one 51%-69%, which has progressed compared to previous evaluation. Thepatient has been getting carotid Doppler lately for moderate to severe carotiddisease. His last echocardiogram showed stable cardiac function with mildmitral regurgitation, normal ejection fraction. He had a stable nuclear stresstest back in 2019 with known scar, ejection fraction 47% with no evidence ofischemia. His peripheral arterial disease has been stable. He has had bouts ofparoxysmal atrial fibrillation on a Holter monitor that lately has been in sinusrhythm and has not had any symptomatic fibrillation. Given the worseningcarotid disease and his extensive history, the patient is here for cardiac andcarotid angiograms to assess for carotid revascularization. The patient hasalso known dilated ascending aorta at 4.0 cm on the last measurement. Thepatient has had his peripheral arterial disease surgeries at [facility] by . His bypass has been in 2007 and he had at the time bypass to the LADusing a CASTANO and bypass to the obtuse marginal using a vein graft that was doneby Dr. Sheldon on 09/12/2007. The patient has had multiple previous interventionson his legs prior to surgery on both legs. His peripheral arterial diseasehistory is detailed in the old records available at [facility]. His mainproblem right now is to check his coronaries and bypasses and then to decide oncarotid surgery. PAST MEDICAL HISTORY: Remarkable for the above, in addition to diabetes, benignprostatic hypertrophy, acid reflux, osteoarthritis, B12 and vitamin Ddeficiencies and allergies. PATIENT NAME: GERALDO JAY PAST SURGICAL HISTORY: Extensive, as per above. Multiple peripheral arterialdisease and wounds procedures. He has had tonsillectomy and the left footdigits 1-5 were amputated. ALLERGIES: NO KNOWN DRUG ALLERGIES. MEDICATIONS: He takes Januvia, Xigduo 06/999 daily, glimepiride 2 mg b.i.d.,aspirin 81 mg daily, Xarelto 15 mg daily, amiodarone 200 mg daily, carvedilol 25mg b.i.d., hydrochlorothiazide 12.5 mg daily, lisinopril 20 mg daily andatorvastatin 80 mg daily. SOCIAL HISTORY: There is no history of recent smoking. There is no history ofalcohol or street drug use. The patient is accompanied by his who is hismain gallery host. FAMILY HISTORY: Positive for atherosclerotic cardiovascular disease. REVIEW OF SYSTEMS: Remarkable for the above, in addition to insomnia, easybruisability, peripheral arterial disease with neuropathy. No acute GI or GUsymptoms. No TIAs or strokes. PHYSICAL EXAMINATION:GENERAL: Reveals a pleasant elderly male in no acute distress.VITAL SIGNS: Blood pressure 130/80, pulse 53 and regular, respiratory rate 16and unlabored, temperature afebrile.HEENT: Head atraumatic, normocephalic. Eyes ENT examination within normal forage.NECK: Supple, no jugular venous distention, bruits or lymphadenopathy. Normalupstroke.LUNGS: Clear and resonant.HEART: Regular rate and rhythm with 2/6 systolic ejection murmur at the leftlower sternal border. No gallops.ABDOMEN: Soft, obese, no tenderness, no organomegaly, no masses or bruits.EXTREMITIES: Diminished distal pulses bilaterally. He has small ulcers on bothfeet followed by Podiatry. He has 1+ edema or varicosities of the lowerextremities. No cyanosis or clubbing.NEUROLOGIC: Alert, alert and oriented x3. Examination appears to be nonfocal. LABORATORY DATA: Pending. Noninvasive cardiovascular workup enclosed. IMPRESSION: This is a 76-year-old patient with extensive atheroscleroticcardiovascular disease history, who has a long history of coronary arterydisease and a double bypass in 2007. He has known significant carotid diseaseand extensive peripheral arterial disease history. He is here today for cardiaccatheterization and bilateral carotid angiograms to assess for carotid surgery. RECOMMENDATIONS: To proceed with the above-mentioned procedures. The risks andbenefits of the planned procedures were discussed in detail with the patient andhis and he is willing to proceed. Rest as per orders. Dictated By: Denisa Harrington MD Date Dictated: 12/11/2021 07:38:37 PATIENT NAME: GERALDO JAY Date Transcribed: 12/11/2021 09:40:30SD/LRSJob #: [id number] ID: [id number] and Edited by Denisa Harrington MD On 12/11/21 1:54:24 PM at 0155 PATIENT NAME: GERALDO JAY and physical [id number] VAvailable for patient [id number]
[2023-07-16 18:23] LABS: Absolute Basophils 0.1 K/uL (0-0.5); Absolute Eosinophils 0.4 K/uL (0-0.5); Absolute Lymphocytes (CBC) 1.6 K/uL (0.7-4.9); Absolute Monocytes 0.9 K/uL (0.1-1.3); Absolute Neutrophil 5.5 K/uL (1.8-8.0); Basophils % 1.1 % (0-1.3); Eosinophils % 4.4 % (0-4.4); Hematocrit 18.2 % (39.6-49.0); Lymphocytes % 18.7 % (15.3-44.8); MCH 23.7 pg (27.0-35.0); MCHC 30.9 g/dL (32.0-36.0); MCV 76.6 fL (80-100); Monocytes % 10.8 % (3.3-12.3); Nucleated Red Blood Cells % 0.3 % (0-0); Platelets 287 thou/uL (152-406); RBC Red Blood Cell Count 2.38 M/uL (4.33-5.43); Red Cell Distribution Width 19.5 % (12.1-15.2)
[2023-07-16 18:36] LABS: Albumin 2.8 g/dL (3.4-5.0); Albumin/Globulin Ratio 0.7 (1.1-1.8); Anion Gap 10.9 mEq/L (5.0-15.0); Bilirubin Total 0.2 mg/dL (0.2-1.0); Globulin 4.2 g/dL (2.3-3.5); Potassium 4.9 mEq/L (3.5-5.1)
[2023-07-16 18:45] LABS: Hemoglobin 5.6 g/dL (13.6-17.9)
[2023-07-16 19:39] LABS: Anisocytosis 1+; Blood Morphology Comment NOTED (NOT SEEN); Platelet Estimate ADEQ; White Blood Cell Scan OK (OK)
--- NOTE | 2023-07-16 22:08 | ER ---
Nurse's Notes [facility] Name: Geraldo El Age: 77 yrs Sex: Male : 1945 Arrival Date: 07/16/2023 Time: 17:04 Bed 8 Private MD: Diagnosis: GI Bleed/ Gastrointestinal hemorrhage, unspecified;Anemia, unspecified Presentation: 07/15 17:22 Chief complaint: Patient states: "I went to see my doctor because I was feeling weak aa5 and dizzy when I stand and they called me and said my hemoglobin is 5.7". Pt reports black stools and hx of previous GI bleed. Coronavirus screen: At this time, the client does not indicate any symptoms associated with coronavirus-19. Ebola Screen: Patient denies travel to an Ebola-affected area in the 21 days before illness onset. Initial Sepsis Screen: Does the patient meet any 2 criteria? No. Patient's initial sepsis screen is negative. Does the patient have a suspected source of infection? No. Patient's initial sepsis screen is negative. Risk Assessment: Do you want to hurt yourself or someone else? Patient reports no desire to harm self or others. Onset of symptoms was July 16, 2023. 17:22 Acuity: EDMAR 2 aa5 17:22 Method Of Arrival: Wheelchair aa5 Historical: - Allergies: 17:21 No Known Allergies; aa5 - Home Meds: 21:05 atorvastatin 80 mg oral tablet 1 tab every day at bedtime [Active]; Xarelto 5 mg tablet nj1 oral tablet 1 tab daily [Active]; hydrochlorothiazide 12.5 mg Oral tablet 1 tabs daily [Active]; carvedilol 25 mg oral tablet 1 tab 2 times per day [Active]; lisinopril 10 mg Oral tablet 1 tab 2 times per day [Active]; Januvia 100 mg oral tablet 1 tab daily [Active]; Xigduo XR 5-1,000 mg oral tablet,immed \\T\\ ext release,biphasic 24hr 2 tabs every morning [Active]; glimepiride 2 mg oral tablet [Active]; - PMHx: 17:21 diabetes mellitus; Hypertension; GI bleed (Unknown); CHF; Right ankle wound; aa5 - PSHx: 17:21 Amputation - Left toes (all); Artery - Left Leg; Double Bypass; Hemorrhoidectomy; aa5 Tonsillectomy; - Immunization history:: Adult Immunizations unknown. - Infectious Disease History:: Denies. - Social history:: Smoking status: Patient denies any tobacco usage or history of. Screenin:42 [facility] ED Fall Risk Assessment (Adult) History of falling in the last 3 months, nj1 including since admission No falls in past 3 months (0 pts) Confusion or Disorientation No (0 pts) Intoxicated or Sedated No (0 pts) Impaired Gait No (0 pts) Mobility Assist Device Used No (0 pt) Altered Elimination No (0 pt) Score/Fall Risk Level 0 - 2 = Low Risk Oriented to surroundings, Maintained a safe environment, Hourly rounding (assess needs \\T\\ fall precautionary measures) done. Abuse screen: Denies threats or abuse. Denies injuries from another. Nutritional screening: No deficits noted. Tuberculosis screening: No symptoms or risk factors identified. Assessment: 17:41 General: Appears in no apparent distress. comfortable, Behavior is calm, cooperative, nj1 appropriate for age. Pain: Denies pain. Neuro: Level of Consciousness is awake, alert, obeys commands, Oriented to person, place, time, situation. Neuro: Reports weakness. Cardiovascular: Patient's skin is warm and dry. Respiratory: Airway is patent Respiratory effort is even, unlabored. GI: Reports Black tarry stools. Derm: Skin is pale. 19:30 Reassessment: Patient appears in no apparent distress at this time. Patient and/or nj1 family updated on plan of care and expected duration. Pain level reassessed. Patient is alert, oriented x 3, equal unlabored respirations, skin warm/dry/pink. 20:34 Reassessment: Patient appears in no apparent distress at this time. Patient and/or nj1 family updated on plan of care and expected duration. Pain level reassessed. Patient is alert, oriented x 3, equal unlabored respirations, skin warm/dry/pink. 21:30 Reassessment: Patient appears in no apparent distress at this time. Patient and/or nj1 family updated on plan of care and expected duration. Pain level reassessed. Patient is alert, oriented x 3, equal unlabored respirations, skin warm/dry/pink. 23:50 Reassessment: Patient appears in no apparent distress at this time. No changes from lg3 previously documented assessment. Patient and/or family updated on plan of care and expected duration. Pain level reassessed. Patient is alert, oriented x 3, equal unlabored respirations, skin warm/dry/pink. 23:50 General: blood transfusion continued upon transfer. see paper charting . lg3 Vital Signs: 17:22 BP 148 / 53; Pulse 86; Resp 18 S; Temp 97.8(TE); Pulse Ox 100% on R/A; Weight 117.93 kg aa5 (R); Height 6 ft. 5 in. (R); 18:30 BP 166 / 68; Pulse 70; Resp 22; Pulse Ox 99% on R/A; ld1 19:29 BP 154 / 102; Pulse 65; Resp 18; Pulse Ox 100% ; nj1 20:33 BP 202 / 96; Pulse 63; Resp 16; Pulse Ox 100% ; nj1 20:39 BP 169 / 106; Pulse 69; Resp 16; Pulse Ox 100% ; nj1 21:30 BP 155 / 55; Pulse 67; Resp 14; Pulse Ox 97% on R/A; nj1 23:25 BP 156 / 63; Pulse 71; Resp 14 S; Temp 96.8(TE); Pulse Ox 100% on R/A; lg3 17:22 Body Mass Index 30.83 (117.93 kg, 195.58 cm) aa5 ED Course: 17:10 Patient arrived in ED. mg5 17:21 Arm band placed on. aa5 17:24 Triage completed. aa5 17:26 Shazia Espino FNP-C is PSYCHIATRICP. kb 17:26 Pete Ruth MD is Attending Physician. kb 17:26 Sandrine Cid, KATIE is Primary Nurse. nj1 17:40 Inserted saline lock: 20 gauge in right forearm, using aseptic technique. Blood nj1 collected. 17:43 Patient has correct armband on for positive identification. Bed in low position. Call nj1 light in reach. Adult w/ patient. Provided Education on: call light, fall precautions. 17:45 Client placed on continuous cardiac and pulse oximetry monitoring. NIBP monitoring nj1 applied. monitoring manager on. 18:25 Client placed on continuous cardiac and pulse oximetry monitoring. NIBP monitoring hb applied. monitoring manager on. Pulse ox on. NIBP on. 20:40 Notified Nurse Practitioner and/or Physician Beam Sealer of BP readings. nj1 22:10 Report given to Aspen WILSON. nj1 23:23 4 called [facility] to start transfer talked to [address] Dr[address] Bogdan Villanueva accepted pt to [facility] [address] gave admin approval BED # 1514 report number [phone] fax MOT to [phone] [id number] talked to M[place] with [facility] will transport to [facility]. 23:27 No provider procedures requiring assistance completed. lg3 23:51 Patient transferred, IV remains in place. lg3 Administered Medications: 22:18 Drug: Pantoprazole IVP 80 mg IVP once Route: IVP; Site: right forearm; lg3 23:50 Follow up: Response: No adverse reaction lg3 Medication: 23:27 VIS not applicable for this client. lg3 Outcome: 22:07 ER care complete, transfer ordered by MD. kb 23:51 Transferred by ground EMS to [facility], Transfer form completed. lg3 23:51 Condition: stable 23:51 Instructed on the need for transfer, Demonstrated understanding of instructions, 23:51 Patient left the ED. lg3 Signatures: Shazia Espino, INTERNATIONAL ORGANIZER-C INTERNATIONAL ORGANIZER-Ckb Brenda Jackson Audri, RN RN aa5 Aria Consatntino, RN Aspen Giang, KATIE RN lg3 Renetta Shelton RN RN ld1 Sandrine Cid RN RN nj1 [place] [address]
--- NOTE | 2023-07-16 22:08 | EDPHYS ---
Physician Documentation [facility] Name: Geraldo El Age: 77 yrs Sex: Male : 1945 Arrival Date: 07/16/2023 Time: 17:04 Bed 8 Private MD: ED Physician Pete Ruth HPI: 07/15 20:19 This 77 yrs old Male presents to ER via Wheelchair with complaints of Abnormal Lab kb Results. 20:19 Patient is a 77-year-old male who presents for low hemoglobin. States he has had black kb stools intermittently for a while, had a normal EGD and colonoscopy in February 2023 (done by Dr. Smith at the GI center). States he had black stools this time for about a month. Patient states he has been having shortness of breath and dizziness on exertion so he went to his PCP, had blood work done and was called today for anemia and need for blood transfusion so that is why he is in the ER at this time. Historical: - Allergies: 17:21 No Known Allergies; aa5 - Home Meds: 21:05 atorvastatin 80 mg oral tablet 1 tab every day at bedtime [Active]; Xarelto 5 mg tablet nj1 oral tablet 1 tab daily [Active]; hydrochlorothiazide 12.5 mg Oral tablet 1 tabs daily [Active]; carvedilol 25 mg oral tablet 1 tab 2 times per day [Active]; lisinopril 10 mg Oral tablet 1 tab 2 times per day [Active]; Januvia 100 mg oral tablet 1 tab daily [Active]; Xigduo XR 5-1,000 mg oral tablet,immed \T\ ext release,biphasic 24hr 2 tabs every morning [Active]; glimepiride 2 mg oral tablet [Active]; - PMHx: 17:21 diabetes mellitus; Hypertension; GI bleed (Unknown); CHF; Right ankle wound; aa5 - PSHx: 17:21 Amputation - Left toes (all); Artery - Left Leg; Double Bypass; Hemorrhoidectomy; aa5 Tonsillectomy; - Immunization history:: Adult Immunizations unknown. - Infectious Disease History:: Denies. - Social history:: Smoking status: Patient denies any tobacco usage or history of. ROS: 20:18 Constitutional: As per HPI kb Exam: 20:18 Constitutional: This is a well developed, well nourished patient who is awake, alert, kb and in no acute distress. Head/Face: Normocephalic, atraumatic. ENT: Moist Mucous membranes Cardiovascular: Regular rate Respiratory: Respirations even and unlabored. No increased work of breathing. Talking in full sentences Abdomen/GI: Soft, non-tender. No distention Skin: Warm, dry with normal turgor. Normal color. MS/ Extremity: Pulses equal, no cyanosis. Neurovascular intact. Full, normal range of motion. Neuro: Awake and alert, GCS 15, oriented to person, place, time, and situation. Moves all extremities. Normal gait. Vital Signs: 17:22 BP 148 / 53; Pulse 86; Resp 18 S; Temp 97.8(TE); Pulse Ox 100% on R/A; Weight 117.93 kg aa5 (R); Height 6 ft. 5 in. (R); 18:30 BP 166 / 68; Pulse 70; Resp 22; Pulse Ox 99% on R/A; ld1 19:29 BP 154 / 102; Pulse 65; Resp 18; Pulse Ox 100% ; nj1 20:33 BP 202 / 96; Pulse 63; Resp 16; Pulse Ox 100% ; nj1 20:39 BP 169 / 106; Pulse 69; Resp 16; Pulse Ox 100% ; nj1 21:30 BP 155 / 55; Pulse 67; Resp 14; Pulse Ox 97% on R/A; nj1 23:25 BP 156 / 63; Pulse 71; Resp 14 S; Temp 96.8(TE); Pulse Ox 100% on R/A; lg3 17:22 Body Mass Index 30.83 (117.93 kg, 195.58 cm) aa5 MDM: 17:26 Patient medically screened. kb 20:16 Differential diagnosis: anemia, gi bleed. Data reviewed: vital signs, nurses notes. kb Consideration of Admission/Observation Escalation of care including admission/observation considered. admission considered but GI unavailable. Discussed need for transfer with pt. Pt refuses transfer. States he will just go home and follow up next week. I convinced pt to stay in order to get blood transfusion prior to leaving. Pt in agreement to get two units of blood prior to leaving AMA. . Management of patient was discussed with the following: Hospitalist: Discussed case with Dr Ro. Recommends transfer for GI. Counseling: I had a detailed discussion with the patient and/or guardian regarding the historical points, exam findings, and any diagnostic results supporting the discharge/admit diagnosis, lab results, the need to transfer to another facility. Refusal of service: The patient/guardian displays adequate decision making capability and despite a detailed discussion of alternatives, benefits, risks, and consequences refuses: transfer. 22:06 Management of patient was discussed with the following: Dr Villanueva accepts pt for kb transfer. ED course: Pt now agrees to be transferred. Transfer to [facility] initiated. 07/15 17:58 Order name: CBC with Diff; Complete Time: 19:40 kb 07/15 17:58 Order name: CMP; Complete Time: 18:53 kb 07/15 17:58 Order name: Lipase; Complete Time: 18:53 kb 07/15 17:58 Order name: Type And Screen kb 07/15 18:48 Order name: CBC Smear Scan; Complete Time: 19:40 EDOH 07/15 21:37 Order name: ABO/RH no charge; Complete Time: 21:37 EDMS 07/15 21:43 Order name: Packed RBC Leukored EDOH 07/15 17:58 Order name: IV Saline Lock; Complete Time: 17:59 kb 07/15 17:58 Order name: Labs collected and sent; Complete Time: 17:59 kb Administered Medications: 22:18 Drug: Pantoprazole IVP 80 mg IVP once Route: IVP; Site: right forearm; lg3 23:50 Follow up: Response: No adverse reaction lg3 Disposition Summary: 07/16/23 22:07 Transfer Ordered Notes: Transfer Location: [facility] kb Reason: Higher level of care kb Condition: Stable kb Problem: new kb Symptoms: are unchanged kb Accepting Physician: Dr Villanueva(07/16/23 23:51) lg3 Diagnosis - GI Bleed/ Gastrointestinal hemorrhage, unspecified kb - Anemia, unspecified kb Forms: - Medication Reconciliation Form kb - SBAR form kb Critical care time excluding procedures: 20:18 Critical care time: Bedside Care: 15 minutes, Consultation: 10 minutes, Family kb Intervention: 5 minutes. Total time: 30 minutes Signatures: Dispatcher [employer] EDShazia Gill FNP-C FNP-Aislinn Gilbert, RN RN aa5 Aspen Palma, RN RN lg3 Sandrine Cid, RN RN nj1 Corrections: (The following items were deleted from the chart) 17:58 17:58 CBC+H.LAB.BRZ ordered. EDMS EDMS 17:58 17:58 COMPREHENSIVE METABOLIC PANEL+C.LAB.BRZ ordered. EDOH EDMS 17:58 17:58 LIPASE+C.LAB.BRZ ordered. EDOH EDOH 17:58 17:58 TYPE AND SCREEN+BB.LAB.BRZ ordered. EDOH EDOH 22:07 20:20 ED course: Patient has decided to leave our facility AGAINST MEDICAL ADVICE. I kb have assessed the patient's ability to make an informed decision and it is my opinion at this time that the patient has the medical decision-making capacity to comprehend information regarding current medical condition and appreciates the impact of the disease or condition and the consequences of various options for treatment, including foregoing treatment. The patient possesses the ability to evaluate all treatment options, compare the risk and benefits of each option, communicate choice and is able to make rational choices. I have explained to the patient further testing, treatment, and evaluation I would like to perform during the current emergency department visit as well as any possible alternatives that could be accomplished in a timely manner. I have outlined the possible risk of foregoing any or all of these interventions and the patient understands and acknowledges that the decision to leave may result in undesirable consequences such as , permanent disability, and/or loss of current lifestyle. Even though leaving AMA a is not ideal, I have instructed the patient to follow any discharge instructions given, take any medications prescribed and resume care as soon as possible with another provider. Additionally, I have clearly stated that the patient is welcome to return at any time to continue care at our facility.. kb 23:51 22:07 Dr Villanueva kb lg3
[2023-07-16] MEDS ORDERED: PANTOPRAZOLE 40 MG INJ ONE (22:10)
[2023-07-16] MEDS ORDERED: NA CHLORIDE 0.9% 500 ML ONE (22:22)
[2023-07-17 00:11] VITALS: O2SAT 100
[2023-07-17 00:45] VITALS: BP 156/63; TEMP 96.8
== END 2023-07-16 23:51 | disposition short-term general hospital (02) ==
LOC: ER 17:04
PROC: 30233N1 Transfusion of Nonautologous Red Blood Cells into Peripheral Vein, Percutaneous Approach (ICD-10-PCS; principal; 2023-07-16)
DX: D64.9 Anemia, unspecified (principal); E11.9 Type 2 diabetes mellitus without complications; I10 Essential (primary) hypertension; I50.9 Heart failure, unspecified; Z95.1 Presence of aortocoronary bypass graft; Z79.01 Long term (current) use of anticoagulants
CPT/HCPCS: 85025; 36415; 86900; 86850; 86901; 86920 ×2; 83690; 80053; 96374; 99285; 36430; C9113; P9016; J7040